=== PATIENT | male | born 1955 | race Hispanic/Latino ===

== ENCOUNTER 2016-11-26 17:15 | Inpatient (IN) | payer MEDICARE, SELFPAY ==
--- NOTE | 2016-11-26 17:57 | ED PDOC ---
Arrival/HPI - General Historian: Patient, Family (daughter) - General Chief Complaint: Seizure Time Seen by Provider: 11/26/16 17:40 - History of Present Illness Narrative History of Present Illness (Text): 11/26/16 18:03 61 yo M w h/o seizure disorder, Chronic EtOH abuse, active tobacco abuse, CAF not on AC due to risk of falls, HTN, TBI 7 years ago, medical noncompliance, presents to ER with his daughter, who states the patient has not been complaint with any of his medications x 5-6 years and has been having seizures daily x 4 days. Patient states he cannot tell when he is about to have a seizure. According to family friend, who is also at bedside, patient had a witnessed 3- minute myoclonic seizure with no head trauma. As per the patient and his daughter, patient did have multiple seizures in the past few days with an episode of head and back trauma 3 days ago. Patient admits to lower back pain worsened by movement and sitting since that seizure 3 days ago. Patient admits to 2 day h/o mildly productive white cough, denies fever, chills. Patient is a current smoker 1ppd x >45 years. Daily EtOH abuse, "three tall beers" today, according to the patient's daughter, he usually consumes 2-12 tall cans of beer per day. Patient denies CP, SOB, abd pain, n/v/d, fevers, chills, dysuria. ( Blanca Maldonado) Past Medical History - Provider Review Nursing Documentation Reviewed: Yes - Travel History Have you recently traveled outside [place] w/in the past 3 mons?: No - Infectious Disease Hx of Infectious Diseases: None - Tetanus Immunization Tetanus Immunization: Unknown - Cardiac Hx Cardiac Arrhythmia: Yes (a fib) Hx DE: Yes (x2) Hx Hypertension: Yes - Pulmonary Other/Comment: HX SMOKING - Neurological HX Cerebrovascular Accident: Yes (left sided weakness) Hx Dementia: Yes (ALCOHOL RELATED) Hx Seizures: Yes - Musculoskeletal/Rheumatological Hx Falls: Yes (Falls ETOH/Seizure Precaution) Hx Herniated Disk: Yes Hx Unsteady Gait: Yes (ETOH ABUSE) - Psychiatric Hx Depression: No Hx Emotional Abuse: No Hx Physical Abuse: No Hx Substance Use: No - Past Surgical History Past Surgical History: No Previous - Anesthesia Hx Anesthesia: No - Suicidal Assessment Feels Threatened In Home Enviroment: No Family/Social History - Physician Review Nursing Documentation Reviewed: Yes Family/Social History: Hypertension Smoking Status: Current Some Days Smoker Hx Alcohol Use: Yes (daily) Frequency of alcohol use: Daily Hx Substance Use: No Hx Substance Use Treatment: No Allergies/Home Meds Allergies/Adverse Reactions: Allergies No Known Allergies Allergy (Verified 11/26/16 17:40) Home Medications: Home Meds Medication Instructions Recorded Confirmed No Known Home Med 11/26/16 11/26/16 Review of Systems - Physician Review All systems were reviewed & negative as marked: Yes - Review of Systems Constitutional: Normal. absent: Fatigue Eyes: Normal. absent: Vision Changes ENT: Normal Respiratory: Cough, Sputum (white). absent: SOB Cardiovascular: absent: Chest Pain, Palpitations Gastrointestinal: absent: Abdominal Pain, Diarrhea, Nausea, Vomiting Genitourinary Male: absent: Dysuria Musculoskeletal: Back Pain. absent: Neck Pain Skin: absent: Rash, Skin Lesions Neurological: absent: Headache, Dizziness Endocrine: absent: Diaphoresis, Polyuria, Polydipsia Hemo/Lymphatic: absent: Easy Bleeding, Easy Bruising Psychiatric: absent: Anxiety, Depression Physical Exam Vital Signs Reviewed: Yes Temperature: Afebrile Blood Pressure: Normal Pulse: Tachycardic Respiratory Rate: Normal Appearance: Positive for: Well-Appearing, Non-Toxic Pain Distress: None Mental Status: Positive for: Alert and Oriented X 3 - Systems Exam Head: Present: Atraumatic, Normocephalic Pupils: Present: PERRL Extroacular Muscles: Present: EOMI Conjunctiva: Present: Normal. No: Icteric Mouth: Present: Dry (slightly) Neck: Present: Normal Range of Motion. No: Meningeal Signs, JVD Respiratory/Chest: Present: Wheezes (diffuse end-exp), Decreased Breath Sounds ( RLL). No: Clear to Auscultation, Respiratory Distress, Accessory Muscle Use Cardiovascular: Present: Normal S1, S2, Tachycardic Abdomen: Present: Distention, Normal Bowel Sounds. No: Tenderness, Peritoneal Signs, Rebound, Guarding Upper Extremity: Present: Normal Inspection, Neurovascularly Intact. No: Cyanosis, Edema Lower Extremity: Present: Normal Inspection. No: CALF TENDERNESS Neurological: Present: GCS=15, CN II-XII Intact, Speech Normal Skin: Present: Warm, Dry, Normal Color, Laceration (top of head) Psychiatric: Present: Alert, Oriented x 3, Normal Insight, Normal Concentration Vital Signs Temp Pulse Resp BP Pulse Ox 11/26/16 19:31 137/81 11/26/16 17:44 98.1 F 101 H 21 122/93 H 96 11/26/16 17:26 98.1 F 111 H 18 122/93 H 96 Medical Decision Making ED Course and Treatment: Patient Seen With Resident: In agreement with resident note. Patient was seen and evaluated with resident, came up with plan and treatment together. EXAM: CT Head Without Intravenous Contrast FINDINGS: LIMITATIONS: Exam is limited by moderate to marked streak/motion artifact. BRAIN: Stable appearance of multiple areas of encephalomalacia, located in the inferior frontal lobes bilaterally, the left frontal lobe laterally, and the left parietal lobe. Findings compatible with a chronic lacunar infarct in the right basal ganglia. Moderate to severe diffuse cortical atrophy and ventriculomegaly, which appear somewhat advanced for age. Recommend clinical correlation. No definite acute abnormality identified, allowing for motion artifact. No definite acute hemorrhage seen within the brain. No acute extra-axial fluid collections visualized. No evidence of significant mass effect within the brain. VENTRICLES: See above. BONES/JOINTS: No acute fractures are seen. SOFT TISSUES: No acute abnormality of the visualized soft tissues is seen. VASCULATURE: Atherosclerotic calcification. SINUSES: Mild sinus inflammatory disease. There is mild mucosal thickening in the left maxillary, right sphenoid, and bilateral ethmoid sinuses. Small osteoma also noted in a left ethmoid sinus. No evidence of sinus fluid levels. MASTOID AIR CELLS: Mastoid air cells appear clear. IMPRESSION: - No definite acute intracranial injury or fractures seen, allowing for motion artifact. - Multiple areas of encephalomalacia in the brain, stable in appearance compared to a prior study. Findings could be related to chronic infarcts and/or remote traumatic injury. Dictated and Authenticated by: Xi Ruvalcaba MD 11/26/2016 7:44 PM Eastern Time ([place] & [place]) (Twan Coleman) 11/26/16 18:33 61 yo M w h/o TBI, Seizure disorder, HTN, CAF not on AC, medical noncompliance presents with recurrent seizures. CT head, CXR, EKG, LS spine x-ray, labs, cultures. IVF, Duonebs. Re-assess and dispo. 11/26/16 20:34 Patient states he feels better after 10mg IV toradol for back pain. 11/26/16 20:53 Spoke with hospitalist, Dr woods, who accepts admission to hospitalist service. Resident notified, case discussed in depth with hospitalist and resident. (Blanca Maldonado) - Lab Interpretations Lab Results: 11/26/16 17:49 11/26/16 18:29 Lab Results 11/26/16 18:29: Alcohol, Quantitative 97 H 11/26/16 18:29: PT 12.8 H, INR 1.19 H, APTT 33.8 H 11/26/16 18:29: Sodium 125 L, Chloride 85 L, Potassium 3.4 L, Carbon Dioxide 24 , Anion Gap 19, BUN 22 H, Creatinine 1.3, Est GFR ( Amer) > 60, Est GFR ( Non-Af Amer) 57, Random Glucose 74, Calcium 9.0, Phosphorus 4.2, Magnesium 1.9, Total Bilirubin 3.0 H, AST 174 H, ALT 85 H, Alkaline Phosphatase 74, Total Protein 7.1, Albumin 4.0, Globulin 3.1, Albumin/Globulin Ratio 1.3 11/26/16 18:29: pO2 77 H, VBG pH 7.43, VBG pCO2 35.0 L, VBG HCO3 23.2, VBG Total CO2 24.3, VBG O2 Sat (Calc) 97.6 H, VBG Base Excess -0.6 L, VBG Potassium 3.2 L, Sodium 123.0 L, Chloride 86.0 L, Glucose 75, Lactate 3.6 H, FiO2 21.0, Venous Blood Potassium 3.2 L 11/26/16 17:49: WBC 15.4 H, RBC 5.66, Hgb 18.8 H*, Hct 52.1 H, MCV 92.0, MCH 33.2, MCHC 36.1, RDW 13.9, Plt Count 74 L, MPV 10.7, Neutrophils % (Manual) 85 H , Band Neutrophils % 6 H, Lymphocytes % (Manual) 8 L, Monocytes % (Manual) 1, Platelet Evaluation Low - RAD Interpretation Radiology Orders: 11/26/16 17:57 HEAD W/O CONTRAST [CT] Stat 11/26/16 17:59 CHEST ONE VIEW [RAD] Stat 11/26/16 18:20 LS SPINE WITH OBL > 18 YRS OLD [RAD] Stat - Medication Orders Current Medication Orders: Discontinued Medications Albuterol/Ipratropium (Duoneb 3 Mg/0.5 Mg (3 Ml) Ud) 3 ml IH STAT STA Stop: 11/26/16 18:22 Last Admin: 11/26/16 18:34 Dose: 3 ml Cyanocobalamin (Vitamin B12 1000 Mcg/Ml Inj) 1,000 mcg IM ONCE ONE Stop: 11/26/16 19:40 Sodium Chloride (Sodium Chloride 0.9%) 1,000 mls @ 999 mls/hr IV .Q1H1M STA Stop: 11/26/16 19:23 Last Admin: 11/26/16 18:34 Dose: 999 mls/hr Magnesium Sulfate/Dextrose (Magnesium Sulfate 1 Gm/100 Ml D5w) 1 gm in 100 mls @ 100 mls/hr IVPB ONCE ONE Stop: 11/26/16 20:27 Last Admin: 11/26/16 19:42 Dose: 100 mls/hr Sodium Chloride (Sodium Chloride 0.9%) 1,000 mls @ 999 mls/hr IV .Q1H1M STA Stop: 11/26/16 20:28 Last Admin: 11/26/16 20:24 Dose: 999 mls/hr Ketorolac Tromethamine (Toradol) 10 mg IVP STAT STA Stop: 11/26/16 19:39 Last Admin: 11/26/16 19:42 Dose: 10 mg Potassium Chloride (K-Dur 20 Meq Er Tab) 40 meq PO STAT STA Stop: 11/26/16 19:29 Last Admin: 11/26/16 19:42 Dose: 40 meq Thiamine HCl (Vitamin B1 Inj) 100 mg IM STAT STA Stop: 11/26/16 19:40 Last Admin: 11/26/16 20:23 Dose: 100 mg Disposition/Present on Arrival - Present on Arrival Any Indicators Present on Arrival: No History of DVT/PE: No History of Uncontrolled Diabetes: No Urinary Catheter: No History of Decub. Ulcer: No History Surgical Site Infection Following: None - Disposition Have Diagnosis and Disposition been Completed?: Yes Disposition Time: 20:33 Patient Plan: Admission - Disposition Diagnosis: Seizure, Alcohol abuse, Tobacco user Disposition: HOSPITALIZED Patient Problems: Current Active Problems Problem Status Onset Alcohol abuse Acute Tobacco user Acute Seizure disorder Acute Seizure Acute Condition: FAIR Referrals: [facility] Profile Req, [Primary Care Provider] - Follow up with primary
[2016-11-26] MEDS ORDERED: Albuterol-Ipratrop 3 mg / 0.5 (3 ml) UD IH STA (18:21)
[2016-11-26] MEDS ORDERED: Sodium Chloride 0.9% 1,000 ML IV STA ×2 (18:23→19:28)
[2016-11-26 18:42] LABS: VENOUS BLOOD GAS BASE EXCESS -0.6 mmol/L (0.0-2.0); VENOUS BLOOD PH 7.43 (7.32-7.43)
[2016-11-26 18:53] LABS: ALB/GLOB RATIO 1.3 (1.1-1.8); ALKALINE PHOSPHATASE 74 U/L (38-133); ALT/SGPT 85 U/L (7-56); AST/SGOT 174 U/L (15-59); BLOOD UREA NITROGEN 22 mg/dL (7-21); CARBON DIOXIDE 24 mmol/L (21-33); CHLORIDE 85 mmol/L (98-107); GFR AFRICAN-AMERICAN > 60; GLUCOSE,RANDOM 74 mg/dL (70-110); MAGNESIUM 1.9 mg/dL (1.7-2.2); PHOSPHOROUS 4.2 mg/dL (2.5-4.5); POTASSIUM 3.4 mmol/L (3.6-5.0); SODIUM 125 mmol/L (132-148); TOTAL PROTEIN 7.1 g/dL (5.8-8.3)
--- NOTE | 2016-11-26 18:55 | CARD ---
APPROVED REPORT EKG Measurement Heart [id number] <Conclusion> Atrial fibrillation with rapid ventricular response Anteroseptal infarct, age undetermined Abnormal ECG
[2016-11-26 18:57] LABS: HEMATOCRIT 52.1 % (42.0-52.0); MEAN CORPUSCULAR HEMOGLOBIN 33.2 pg (25.0-35.0); MEAN CORPUSCULAR HGB CONC 36.1 g/dl (31.0-37.0); MEAN PLATELET VOLUME 10.7 fl (7.0-11.0); PLATELET COUNT 74 10^3/uL (120.0-450.0); RED CELL DISTRIBUTION WIDTH 13.9 % (11.5-14.5); WHITE BLOOD COUNT 15.4 10^3/ul (4.5-11.0)
[2016-11-26 19:02] LABS: INR 1.19 (0.93-1.08); PARTIAL THROMBOPLASTIN TIME 33.8 Seconds (23.7-30.8)
[2016-11-26 19:09] LABS: ADD MANUAL DIFF? YES
[2016-11-26] MEDS ORDERED: Magnesium Sulfate 1 gm in D5W 1 GM/100 ML BAG IVPB ONE (19:28)
[2016-11-26] MEDS ORDERED: Potassium Chloride 20 mEq ER Tab PO STA ×2 (19:28→22:51)
[2016-11-26] MEDS ORDERED: Thiamine 100 mg/ml Inj IM STA (19:39)
--- NOTE | 2016-11-26 19:45 | CT ---
EXAM: CT Head Without Intravenous Contrast CLINICAL HISTORY: 61 years old, male; Injury or trauma; Injury Siazure, head trauma; Initial encounter; Blunt trauma (contusions or hematomas); Consciousness not specified; Additional info: Seizure, head trauma TECHNIQUE: Axial computed tomography images of the head/brain without intravenous contrast. This CT exam was performed using one or more of the following dose reduction techniques: automated exposure control, adjustment of the mA and/or kV according to patient size, and/or use of iterative reconstruction technique. EXAM DATE/TIME: 11/26/2016 5:57 PM COMPARISON: Prior head CT of 10/11/2015 FINDINGS: LIMITATIONS: Exam is limited by moderate to marked streak/motion artifact. BRAIN: Stable appearance of multiple areas of encephalomalacia, located in the inferior frontal lobes bilaterally, the left frontal lobe laterally, and the left parietal lobe. Findings compatible with a chronic lacunar infarct in the right basal ganglia. Moderate to severe diffuse cortical atrophy and ventriculomegaly, which appear somewhat advanced for age. Recommend clinical correlation. No definite acute abnormality identified, allowing for motion artifact. No definite acute hemorrhage seen within the brain. No acute extra-axial fluid collections visualized. No evidence of significant mass effect within the brain. VENTRICLES: See above. BONES/JOINTS: No acute fractures are seen. SOFT TISSUES: No acute abnormality of the visualized soft tissues is seen. VASCULATURE: Atherosclerotic calcification. SINUSES: Mild sinus inflammatory disease. There is mild mucosal thickening in the left maxillary, right sphenoid, and bilateral ethmoid sinuses. Small osteoma also noted in a left ethmoid sinus. No evidence of sinus fluid levels. MASTOID AIR CELLS: Mastoid air cells appear clear. IMPRESSION: - No definite acute intracranial injury or fractures seen, allowing for motion artifact. - Multiple areas of encephalomalacia in the brain, stable in appearance compared to a prior study. Findings could be related to chronic infarcts and/or remote traumatic injury. - See above for remaining findings.
[2016-11-26 19:50] LABS: BAND 6 % (0-2); NEUTROPHIL 85 % (50.0-70.0)
[2016-11-26 19:51] LABS: PLATELET ESTIMATE LOW (NORMAL)
[2016-11-26] MEDS ORDERED: Azithromycin 500MG/NS 250ml 500 MG/250 ML BAG IVPB STA (21:44)
--- NOTE | 2016-11-26 22:03 | CP.PCM.HP ---
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 Pt reports that he does not recall the seizure. According to the friend at bedside, the pt fell on his back and hit the top of his head. The pt reports that he does feel pain on the top of his head and in his lower back. According to the daughter, the pt has a history of seizures and is noncompliant with his medications. She reports that he does not follow up a primary care physician. The pt reports that he falls often but does not recall if he has seizures. The pt's friend who is staying with him reports that he saw him have a seizure yesterday during which he fell and hit his head. Pt also reports that he drinks 3-4 large cans of beer per day and he experiences shakes when he does not drink. Pt rpeorts that he has a cough. Pt denies fever, chills, chest pain, shortness of breath, nausea, and vomiting. 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 (7 years ago), seizures, alcohol dependence and withdrawal, and alcoholic dementia Home medications: denies Allergies: NKDA Past surgical hx: tracheostomy, b/l inguinal hernia repair Social Hx: reports that he smokes half a pack of cigarettes/day, drinks 3-4 large cans of beer/day, occasionally uses cocaine and marijuana Family Hx: Heart Disease and Diabetes Mellitus (both maternal and paternal sides ) Present on Admission - Present on Admission Any Indicators Present on Admission: No Review of Systems - Constitutional Constitutional: absent: Chills, Fever - EENT Eyes: absent: Blurred Vision, Change in Vision Ears: absent: Disequilibrium, Dizziness Nose/Mouth/Throat: absent: Epistaxis, Nasal Congestion - Cardiovascular Cardiovascular: Palpitations. absent: Chest Pain, Dyspnea, Leg Edema - Respiratory Respiratory: Cough. absent: Dyspnea - Gastrointestinal Gastrointestinal: absent: Abdominal Pain, Nausea, Vomiting - Musculoskeletal Musculoskeletal: Back Pain. absent: Abnormal Gait, Arthralgias - Neurological Neurological: absent: Disequilibrium, Dizziness - Psychiatric Psychiatric: Change in Appetite, Confusion Past Patient History - Infectious Disease Hx of Infectious Diseases: None - Tetanus Immunizations Tetanus Immunization: Unknown - Past Social History Smoking Status: Current Some Days Smoker - CARDIAC Hx Cardia Arrhythmia: Yes (a fib) Hx Heart Attack: Yes (x2) Hx Hypertension: Yes - PULMONARY Other/Comment: HX SMOKING - NEUROLOGICAL HX Cerebrovascular Accident: Yes (left sided weakness) Hx Dementia: Yes (ALCOHOL RELATED) Hx Seizures: Yes - MUSCULOSKELETAL/RHEUMATOLOGICAL Hx Falls: Yes (Falls ETOH/Seizure Precaution) Hx Herniated Disk: Yes Hx Unsteady Gait: Yes (ETOH ABUSE) - PSYCHIATRIC Hx Depression: No Hx Emotional Abuse: No Hx Physical Abuse: No Hx Substance Use: No - SURGICAL HISTORY Hx Surgeries: No - ANESTHESIA Hx Anesthesia: No Meds Allergies/Adverse Reactions: Allergies Allergy/AdvReac Type Severity Reaction Status Date / Time No Known Allergies Allergy Verified 11/26/16 17:40 Physical Exam - Constitutional Appears: No Acute Distress, Unkempt - Head Exam Head Exam: ATRAUMATIC, NORMOCEPHALIC - Eye Exam Eye Exam: EOMI, PERRL - ENT Exam ENT Exam: Mucous Membranes Moist. absent: Mucous Membranes Dry - Respiratory Exam Respiratory Exam: Clear to Auscultation Bilateral. absent: Decreased Breath Sounds, Rhonchi, Wheezes - Cardiovascular Exam Cardiovascular Exam: Irregular Rhythm - GI/Abdominal Exam GI & Abdominal Exam: Distended, Rigid. absent: Guarding - Extremities Exam Extremities exam: Positive for: full ROM. Negative for: pedal edema - Neurological Exam Neurological exam: Alert, Oriented x3 - Psychiatric Exam Psychiatric exam: Normal Affect, Normal Mood - Skin Skin Exam: Normal Color, Warm Results - Vital Signs Recent Vital Signs: Last Vital Signs Temp 98.1 F 11/26/16 17:44 Pulse 101 H 11/26/16 17:44 Resp 21 11/26/16 17:44 BP 137/81 11/26/16 19:31 Pulse Ox 96 11/26/16 17:44 - Labs Result Diagrams: 11/26/16 17:49 11/26/16 18:29 Assessment & Plan - Assessment and Plan (Free Text) Assessment: Fall: Head CT - multiple areas of encephalomalacia - stable compared to previous study (please see full report) Lumbar spine x-ray- pending official read Seizure: Head CT - multiple areas of encephalomalacia - stable compared to previous study (please see full report) Neurologist, Dr. Angelia Montes, consulted. Help appreciated. EEG pending Electrolyte Abnormalities: Na+ 125 K+ 3.4 K-dur 40 meq po once NS IVF 125 cc/hr Alcohol Withdrawal: Serum alcohol-97 Ativan 2 mg po q6h Ativan 1 mg IV q2h prn Folic acid 1 mg po qd Thiamine 100 mg po qd Multivitamins SIRS: HR: 101 WBC - 15.4 Band neutrophils 6 CXR -pending official read Lactate 3.6 Procalcitonin pending Coagulopathy: INR - 1.19 Platelets - 74,000 H/H: 18.8/52.1 Iron studies pending Elevated Liver Function tests/transaminitis: T-bili 3.0 AST/ALT: 174/85 Abdominal u/s pending Prophylactic Measures: GI: Protonix 40 mg po qd DVT: SCDs <Arvind Fatima P - Last Filed: 12/08/16 19:34> Results - Vital Signs Recent Vital Signs: Last Vital Signs Temp 97.8 F 12/02/16 16:00 Pulse 76 12/02/16 18:00 Resp 18 12/02/16 18:00 BP 99/70 L 12/02/16 18:00 Pulse Ox 95 12/02/16 16:00 - Labs Result Diagrams: 12/02/16 06:15 12/02/16 06:15 Attending/Attestation - Attestation I have personally seen and examined this patient.: Yes I have fully participated in the care of the patient.: Yes I have reviewed all pertinent clinical information: Yes
[2016-11-26] MEDS: Sodium Chloride 0.9% 1,000 ML IV SCH (23:41)
[2016-11-27 00:40] LABS: VENOUS BLOOD GAS BASE EXCESS -2.3 mmol/L (0.0-2.0); VENOUS BLOOD PH 7.43 (7.32-7.43)
[2016-11-27] MEDS: Morphine 2 mg/ml ISec IVP PRN ×2 (00:50→18:54)
[2016-11-27 01:10] VITALS: BMI 24.7
[2016-11-27] MEDS: Pantoprazole 40 mg EC Tab PO SCH (05:32)
[2016-11-27 06:57] LABS: ADD MANUAL DIFF? NO
[2016-11-27 07:07] LABS: BASO # 0.01 K/mm3 (0.0-2.0); BASO % 0.1 % (0.0-3.0); EOS % 0.1 % (1.5-5.0); GRAN # 8.58 (1.4-6.5); GRAN % 83.1 % (50.0-68.0); HEMATOCRIT 49.8 % (42.0-52.0); LYMPH # 0.8 (1.2-3.4); LYMPH % 7.7 % (22.0-35.0); MEAN CELL VOLUME 93.1 fL (80.0-105.0); MEAN CORPUSCULAR HEMOGLOBIN 32.5 pg (25.0-35.0); MEAN CORPUSCULAR HGB CONC 34.9 g/dl (31.0-37.0); MONO # 0.9 (0.1-0.6); PLATELET COUNT 72 10^3/uL (120.0-450.0); RED CELL DISTRIBUTION WIDTH 14.1 % (11.5-14.5); WHITE BLOOD COUNT 10.3 10^3/ul (4.5-11.0)
[2016-11-27 07:19] LABS: IRON 125 ug/dL (45-180)
[2016-11-27 07:23] LABS: ALB/GLOB RATIO 1.2 (1.1-1.8); ALKALINE PHOSPHATASE 84 U/L (38-133); ALT/SGPT 77 U/L (7-56); AST/SGOT 159 U/L (15-59); BILIRUBIN,TOTAL 2.8 mg/dL (0.2-1.3); BLOOD UREA NITROGEN 18 mg/dL (7-21); CALCIUM 8.5 mg/dL (8.4-10.5); CARBON DIOXIDE 27 mmol/L (21-33); CHLORIDE 100 mmol/L (98-107); GFR AFRICAN-AMERICAN > 60; GLUCOSE,RANDOM 63 mg/dL (70-110); MAGNESIUM 2.3 mg/dL (1.7-2.2); SODIUM 134 mmol/L (132-148); TOTAL PROTEIN 6.9 g/dL (5.8-8.3)
--- NOTE | 2016-11-27 08:42 | US ---
HISTORY: Elevated LFTs COMPARISON: Abdominal ultrasound performed 02/20/13 TECHNIQUE: Sonographic evaluation of the abdomen. FINDINGS: Examination limited by habitus and patient inability to breath hold. LIVER: Measures 16.9 cm in sagittal dimension. Echogenic liver may be seen in setting of hepatic parenchymal disease or fatty infiltration. No focal hepatic mass identified. The main portal vein appears patent with normal directional flow. No intrahepatic bile duct dilatation. GALLBLADDER: No gallstones. No gallbladder wall thickening. Negative sonographic Chance's sign as assessed by the mixing machine attendant. COMMON BILE DUCT: Measures 3 mm. PANCREAS: Not well visualized. RIGHT KIDNEY: Measures 11.0 x 6.4 x 7.4 cm. No obstructing calculus or hydronephrosis identified. LEFT KIDNEY: Measures 12.1 x 6.1 x 6.1 cm. No obstructing calculus or hydronephrosis identified. SPLEEN: Measures approximately 8.4 cm. AORTA: Limited views appear unremarkable. IVC: Limited views appear unremarkable. OTHER FINDINGS: None. IMPRESSION: Limited study. Echogenic liver may be seen in setting of hepatic parenchymal disease or fatty infiltration.
--- NOTE | 2016-11-27 08:44 | RAD ---
PROCEDURE: Radiographs of the Lumbar Spine. HISTORY: trauma r/o fx COMPARISON: No prior. FINDINGS: BONES: No fracture. No spondylolysis. DISC SPACES: Narrowing of L3-4 intervertebral disc space consistent with degenerative disc disease. Minimal left lateral listhesis of L3 on L4, likely degenerative. Remaining intervertebral disc spaces maintained height. OTHER FINDINGS: None. IMPRESSION: No evidence of fracture or dislocation. Degenerative disc disease at L3-4. Minimal left lateral listhesis at L3-4, likely degenerative.
--- NOTE | 2016-11-27 08:45 | RAD ---
PROCEDURE: CHEST RADIOGRAPH, 1 VIEW HISTORY: productive cough COMPARISON: 12/30/2012 FINDINGS: LUNGS: Clear. PLEURA: No pneumothorax or pleural fluid seen. CARDIOVASCULAR: Normal. OSSEOUS STRUCTURES: No significant abnormalities. VISUALIZED UPPER ABDOMEN: Normal. OTHER FINDINGS: None. IMPRESSION: No active disease.
[2016-11-27] MEDS: Sodium Chloride 0.9% 1,000 ML IV SCH (08:52)
--- NOTE | 2016-11-27 09:38 | CP.PCM.PN ---
<Cait Daniels - Last Filed: 11/27/16 13:16> Subjective - Date & Time of Evaluation Date of Evaluation: 11/27/16 Time of Evaluation: 09:35 - Subjective Subjective: HOSPITALIST PROGRESS NOTE Pt seen and examined at bedside. Patient is sleeping but easily arousable. C/ O low back pain. Denies having any CP, SOB, abd pain, N/V/D/C. Patient is A& Ox 3. Patient c/o of left foot pain on going for 1 week. Denies having any trauma to the foot but states it is painful to walk on foot. Objective - Vital Signs/Intake and Output Vital Signs (last 24 hours): Temp Pulse Resp BP Pulse Ox 98.4 F 112 H 20 121/83 92 L 11/27/16 05:26 11/27/16 05:26 11/27/16 05:26 11/27/16 05:26 11/27/16 05:26 Intake and Output: 11/27/16 11/27/16 06:59 18:59 Intake Total 970 1000 Balance 970 1000 - Medications Medications: Current Medications Folic Acid (Folic Acid) 1 mg PO DAILY [facility] Sodium Chloride (Sodium Chloride 0.9%) 1,000 mls @ 125 mls/hr IV .Q8H PENDING SALE TO [facility] Last Admin: 11/27/16 08:52 Dose: 125 mls/hr Piperacillin Sod/Tazobactam Sod (Zosyn 4.5 Gm In Ns 100ml) 4.5 gm in 100 mls @ 200 mls/hr IVPB Q6 [facility] Stop: 11/27/16 18:29 Levetiracetam (Keppra) 500 mg PO BID [facility] Lorazepam (Ativan) 2 mg PO Q6H [facility] PRN Reason: Protocol Last Admin: 11/27/16 05:32 Dose: 2 mg Lorazepam (Ativan) 1 mg IVP Q2H PRN; Protocol PRN Reason: Agitation Morphine Sulfate (Morphine) 1 mg IVP Q4H PRN PRN Reason: Pain, moderate (4-7) Last Admin: 11/27/16 00:50 Dose: 1 mg Multivitamins (Thera Tab) 1 tab PO DAILY [facility] Nicotine (Nicoderm Cq) 1 patch TD DAILY PRN PRN Reason: withdrawal sxs Pantoprazole Sodium (Protonix Ec Tab) 40 mg PO 0630 [facility] Last Admin: 11/27/16 05:32 Dose: 40 mg Piperacillin Sod/Tazobactam Sod (Zosyn) 4.5 gm IVPB Q6 [facility] PRN Reason: Protocol Thiamine HCl (Vitamin B1 Tab) 100 mg PO DAILY [facility] - Labs Labs: 11/27/16 05:00 11/27/16 05:00 PT 12.8 Seconds (9.9-11.8) H 11/26/16 18:29 INR 1.19 (0.93-1.08) H 11/26/16 18:29 APTT 33.8 Seconds (23.7-30.8) H 11/26/16 18:29 - Constitutional Appears: Non-toxic, No Acute Distress - Head Exam Head Exam: ATRAUMATIC - Eye Exam Eye Exam: EOMI - ENT Exam ENT Exam: Mucous Membranes Moist - Respiratory Exam Respiratory Exam: Clear to Ausculation Bilateral, NORMAL BREATHING PATTERN. absent: Rales, Rhonchi, Wheezes - Cardiovascular Exam Cardiovascular Exam: REGULAR RHYTHM, +S1, +S2. absent: Gallop, Rubs, Murmur - GI/Abdominal Exam GI & Abdominal Exam: Soft, Normal Bowel Sounds. absent: Distended, Firm, Guarding, Rigid, Tenderness - Extremities Exam Extremities Exam: absent: Pedal Edema, Tenderness - Back Exam Back Exam: absent: paraspinal tenderness, vertebral tenderness Additional comments: no lacerations or bruising noted on back. Spine nontender - Neurological Exam Neurological Exam: Alert, Awake, Oriented x3 - Psychiatric Exam Psychiatric exam: Normal Affect, Normal Mood - Skin Skin Exam: Dry, Intact, Normal Color, Warm Additional comments: dry blood noted on scalp with no obvious open lac Assessment and Plan - Assessment and Plan (Free Text) Assessment: 61 year old male with past medical history of seizure disorder noncompliant with medications, ETOH abuse, chornic a fib, history of subdural hematoma, HTN, CVA, CAD with 2 MIs is admitted after experiencing a witnessed seizure. CT of head is negative for acute changes but shows multiple areas of encephalomalacia. Lumbar spine shows no fracture but degenerative disc disease at L3-L4. Fall: Head CT - multiple areas of encephalomalacia - stable compared to previous study (please see full report) Lumbar spine x-ray- negative for fractures betadine applied to head Seizure: Keppra [address] - multiple areas of encephalomalacia - stable compared to previous study (please see full report) Neurologist, Dr. Angelia Montes, consulted. Help appreciated. EEG pending Electrolyte Abnormalities: Improving Hyponatremia is corrected. hypokalemia is corrected. NS IVF 75 cc/hr Alcohol Withdrawal: Serum alcohol-97 Ativan 2 mg IV q6h Ativan 2 mg IV q2h prn Folic acid 1 mg po qd Thiamine 100 mg po qd Multivitamins po UDA is pending SIRS: HR: 106 Improved WBC count CXR -negative Lactate normal Procalcitonin pending UA is pending Coagulopathy: INR - 1.19 Platelets - 74,000. will avoid heparin H/H: 17.4/49.8 Iron studies pending Elevated Liver Function tests/transaminitis: T-bili 3.0 AST/ALT: 159/77 Abdominal u/s shows echogenic liver parenchymal disease vs. fatty liver disease Chronic A fib. CHADs2 score of 3. HAS-BLED score of 4 so 8.9% risk of bleeding in this patient. Will consult cardiology for further recs Prophylactic Measures: GI: Protonix 40 mg po qd DVT: SCDs Case discussed with attending Dr. Shelton <Falguni Shelton B - Last Filed: 11/29/16 11:43> Objective - Vital Signs/Intake and Output Vital Signs (last 24 hours): Temp Pulse Resp BP Pulse Ox 97.8 F 91 H 20 144/101 H 96 11/29/16 05:56 11/29/16 10:45 11/29/16 05:56 11/29/16 10:45 11/29/16 05:56 Intake and Output: 11/29/16 11/29/16 06:59 18:59 Intake Total 1560 Balance 1560 - Medications Medications: Current Medications Clonidine HCl (Catapres) 0.2 mg PO TID PRN PRN Reason: Systolic Blood Pressure Last Admin: 11/28/16 21:55 Dose: 0.2 mg Folic Acid 1 mg/ Thiamine HCl 100 mg/ Multivitamins/Vitamin C 10 ml/ Dextrose 1 ,011.2 mls @ 100 mls/hr IV .Q10H7M [facility] Last Admin: 11/29/16 08:14 Dose: Not Given Ceftriaxone Sodium (Rocephin 1 Gram Ivpb) 1 gm in 100 mls @ 100 mls/hr IVPB DAILY [facility] PRN Reason: Protocol Last Admin: 11/29/16 09:05 Dose: 100 mls/hr Azithromycin (Zithromax 500mg In Ns) 500 mg in 250 mls @ 167 mls/hr IVPB DAILY [facility] PRN Reason: Protocol Last Admin: 11/29/16 10:46 Dose: 167 mls/hr Levalbuterol HCl (Xopenex) 1.25 mg IH TIDRESP [facility]END[facility] TO [facility] Last Admin: 11/29/16 07:40 Dose: 1.25 mg Levetiracetam (Keppra) 500 mg PO BID [facility] Last Admin: 11/29/16 10:45 Dose: 500 mg Lorazepam (Ativan) 2 mg IV Q2H PRN PRN Reason: Symptoms of alcohol withdrawl Last Admin: 11/28/16 06:39 Dose: 2 mg Lorazepam (Ativan) 1 mg PO QID [facility] Last Admin: 11/29/16 10:45 Dose: 1 mg Methylprednisolone (Solu-Medrol) 40 mg IVP Q12H [facility] Last Admin: 11/29/16 10:53 Dose: 40 mg Metoprolol Tartrate (Lopressor) 25 mg PO BID [facility] Last Admin: 11/29/16 10:45 Dose: 25 mg Morphine Sulfate (Morphine) 1 mg IVP Q4H PRN PRN Reason: Pain, moderate (4-7) Last Admin: 11/27/16 18:54 Dose: 1 mg Nicotine (Nicoderm Cq) 1 patch TD DAILY PRN PRN Reason: withdrawal sxs Last Admin: 11/28/16 09:55 Dose: 1 patch Pantoprazole Sodium (Protonix Ec Tab) 40 mg PO 0630 [facility] Last Admin: 11/29/16 05:39 Dose: 40 mg - Labs Labs: 11/29/16 07:10 11/29/16 07:10 PT 12.8 Seconds (9.9-11.8) H 11/26/16 18:29 INR 1.19 (0.93-1.08) H 11/26/16 18:29 APTT 33.8 Seconds (23.7-30.8) H 11/26/16 18:29 Attending/Attestation - Attestation I have personally seen and examined this patient.: Yes I have fully participated in the care of the patient.: Yes I have reviewed all pertinent clinical information, including history, physical exam and plan: Yes Notes (Text): I have seen and examined patient at bedside. Agree with the above note with the following additions/ exceptions: This is 61 year old male with history of seizure disorder, alcohol abuse, chronic atrial fibrillation, history of SDH, HTN, CVA, CAD who got admitted for evaluation of witnessed seizure and fall. He had head trauma and low back pain. CT head revealed encephalomalacia. L/S spine xray showed DJD of L3-L4. EEG was ordered. Will start keppra. Neuro and psych consult pending. Hyponatremia resolved. BAL was 97 and is currently on ativan. He has transaminitis. Hep panel and liver ultrasound ordered. He has CHADS2 score of 3. HAS-BLED score of 4 therefore high risk of bleeding. HR is 107 which is acceptable with no hemodynamic instability. Awaiting train director recommendations. Will obtain echo. Dr Falguni Shelton
[2016-11-27] MEDS: Multivitamin Therapeutic Tab PO SCH (10:24)
--- NOTE | 2016-11-27 11:34 | RAD ---
PROCEDURE: Left Foot Radiographs. HISTORY: pain, tenderness, erythema COMPARISON: None. FINDINGS: BONES: Normal. No fracture. JOINTS: Normal. SOFT TISSUES: Normal. OTHER FINDINGS: None. IMPRESSION: Normal left foot radiographs.
[2016-11-27] MEDS ORDERED: Piperacillin/Tazobact 3.375 gm Inj IVPB SCH (12:00)
[2016-11-27] MEDS ORDERED: Piperacill/Tazo 4.5gm in NS 100 ML IVPB SCH (12:00)
[2016-11-27] MEDS ORDERED: Sodium Chloride 0.9% 1,000 ML IV SCH (13:26)
[2016-11-27] MEDS ORDERED: Povidone Iodine Topical 10% Sol TOP ONE (13:44)
--- NOTE | 2016-11-27 19:17 | CON ---
DATE: 11/27/2016 HISTORY OF PRESENT ILLNESS: This is a 61-year-old white male with a past medical history of CVA 2 ye ars ago, traumatic brain injury 7 years ago, a history of seizure, alcohol dependence and withdrawal, and alcoholic dementia. Came to see the patient. Daughter at bedside. The patient less agitated. Follows simple commands. The patient had a seizure at home. Brought him here. CAT scan of the hea d was done, which was reported negative. Only encephalomalacia. The patient drinks 3-4 large cans of beer per day. Has also cough. PAST MEDICAL HISTORY: CVA, traumatic brain injury, multiple subdural hematomas, seizure, alcohol dep endence, alcoholic dementia. ALLERGIES: No known drug allergy was noted. SOCIAL HISTORY: Smokes and drinks. PHYSICAL EXAMINATION: VITAL SIGNS: Blood pressure 137/81. HEENT: Normocephalic, atraumatic. NECK: Supple. NEUROLOGIC: Awake, oriented to self and place. Cranial nerves II-XII were tested. Pupils reactive. EOM intact. Moves all the extremities spontaneously. Deep tendon reflexes 1+. Both plantars are downgoing. Sensory appears intact. Cerebellar: Gait deferred. IMPRESSION: Seizure. The patient is not taking any medication at home. Also, alcohol withdrawal. The patient was given Ativan regimen, thiamine, and multivitamins, and also started on Keppra. Will do EEG. Further management after the results of above tests. Wong Montes MD cc: [id number] TT: 11/27/2016 19:17:01 Confirmation # [id number] Dictation # [id number] fidel
--- NOTE | 2016-11-27 20:32 | CON ---
DATE: 11/27/2016 HISTORY OF PRESENT ILLNESS: The patient is a 61-year-old male. I reviewed the chart. I s poke at length with referring physician/neurologist, Dr. Montes, and I also spoke at length with 1 of the patient's 2 daughters. The patient was brought to the Emergency Room after having several seizu res in recent days. The patient has a long history of 7 years of traumatic brain disease, seizure di sorder, and has a long-term history of chronic alcohol and tobacco abuse. The patient lives alone, w as a poor historian, but apparently a family friend witnessed a 3 minute myoclonic seizure and patijosé miguel lebron has had multiple seizures in the past few days with an episode of head and back trauma 3 days ago. PAST MEDICAL HISTORY: He had a history of a fall 7 years ago on ice for which he had a brain injury and has had a seizure disorder ever since with traumatic brain injury. Other significant history is as follows: The patient has had a history of myocardial infarctions. He has had a CVA 2 years ago w here he has had a subdural hematoma after his fall and has had seizures both alcohol dependence and w ithdrawal. He also has a history of alcohol dementia. PAST SURGICAL HISTORY: Includes a tracheostomy, bilateral inguinal hernia repair. PERSONAL HISTORY: The patient apparently drinks at least 3-4 large cans of beer per day and smokes h eavily. Allegedly uses cocaine and marijuana. The patient has been drinking since he was a young ma n. The patient's approximately 3 years ago. He lives alone in an apartment. He smokes sesay lf a pack of cigarettes per day. FAMILY HISTORY: Both parents had heart disease and diabetes mellitus. LABORATORY DATA: On admission, his hemoglobin was 18.8, white count 15,400, platelet count 74,000. The patient's urine for toxicology and alcohol level of 97 mg/dL. CURRENT MEDICATIONS: Include IV Ativan q.2 or 6 hours and morphine 1 mg IVP q.4 hours p.r.n. He is on folic acid, Protonix, Keppra 500 mg twice a day, vitamin B1 at 100 mg daily. The patient is on IV fluids. He is also on azithromycin IV. REVIEW OF SYSTEMS: Complains of the back of his neck hurting, back pain, slight headache. The rest of the 12 point review noncontributory. VITAL SIGNS: Blood pressure most recently is 156/109, pulse 95, respirations 18 per minute. CURRENT LABORATORY DATA: The patient's electrocardiogram reveals atrial fibrillation with rapid vent ricular rate. The patient had an x-ray of the lumbar spine, which reveals no evidence of fracture or dislocation and degenerative disk disease of L3-L4, minimal left lateral listhesis of L3-L4, most li gwendolyn degenerative. The patient's head scan revealed multiple areas of encephalomalacia in the brain. Findings could be related to chronic infarcts and/or traumatic injury. The patient had areas of en cephalomalacia located in the inferior frontal lobes bilaterally, left frontal lobe laterally and the left parietal lobe. He has chronic lacunar infarcts in the right basal ganglia, [id number] di ffuse cortical atrophy and ventriculomegaly. PSYCHIATRIC: Mental status: He is a slightly tired, slightly drowsy, lying in bed. He is tod ay, month and place. He says the year is 1976. His recent memory is somewhat clouded. He is not a reliable historian. He seems under the influence of medication. Judgment and insight were all impai red. Of note, his daughters have power of automotive design layout drafter. IMPRESSION: The patient has chronic traumatic brain syndrome with multiple areas of encephalomalacia and infarct. The patient has chronic alcohol abuse disorder. He has been treated for alcohol with phill. He has a history of coronary artery disease, he has had prior myocardial infarctions, and cur rently has a atrial fibrillation with rapid rate. PLAN: Ativan 2 mg IV q.4 hours p.r.n. and Ativan 1 mg p.o. q.i.d. I discussed management with the [facility] [place] staff and will reevaluate the patient tomorrow. Aneesh Lees MD cc: [phone] TT: 11/27/2016 20:32:05 Confirmation # [id number] Dictation # [id number] fidel
[2016-11-28] MEDS: Pantoprazole 40 mg EC Tab PO SCH (05:33)
[2016-11-28 07:23] LABS: ADD MANUAL DIFF? NO
[2016-11-28 07:34] LABS: BASO # 0.01 K/mm3 (0.0-2.0); BASO % 0.1 % (0.0-3.0); EOS % 0.3 % (1.5-5.0); GRAN # 7.03 (1.4-6.5); GRAN % 74.3 % (50.0-68.0); LYMPH # 1.2 (1.2-3.4); LYMPH % 12.1 % (22.0-35.0); MEAN CORPUSCULAR HEMOGLOBIN 32.8 pg (25.0-35.0); MEAN CORPUSCULAR HGB CONC 34.1 g/dl (31.0-37.0); MEAN PLATELET VOLUME 11.1 fl (7.0-11.0); MONO # 1.3 (0.1-0.6); MONO % 13.2 % (1.0-6.0); PLATELET COUNT 72 10^3/uL (120.0-450.0); RED CELL DISTRIBUTION WIDTH 14.2 % (11.5-14.5); WHITE BLOOD COUNT 9.5 10^3/ul (4.5-11.0)
[2016-11-28] MEDS ORDERED: Albuterol-Ipratrop 3 mg / 0.5 (3 ml) UD IH PRN (07:48)
[2016-11-28 07:51] LABS: ALB/GLOB RATIO 1.2 (1.1-1.8); ALKALINE PHOSPHATASE 90 U/L (38-133); ALT/SGPT 66 U/L (7-56); AST/SGOT 112 U/L (15-59); BILIRUBIN,TOTAL 2.5 mg/dL (0.2-1.3); BLOOD UREA NITROGEN 14 mg/dL (7-21); CARBON DIOXIDE 29 mmol/L (21-33); CHLORIDE 102 mmol/L (95-110); GFR AFRICAN-AMERICAN > 60; POTASSIUM 3.7 mmol/L (3.6-5.0); SODIUM 140 mmol/L (132-148); TOTAL PROTEIN 7.2 g/dL (5.8-8.3)
[2016-11-28] MEDS ORDERED: Dextrose 50% SYRINGE Inj (50 ml) ONE (08:18)
[2016-11-28 08:19] LABS: GLUCOSE,RANDOM 47 mg/dL (70-110)
[2016-11-28] MEDS ORDERED: Dextrose 50% SYRINGE Inj (50 ml) IVP ONE (08:22)
[2016-11-28] MEDS: Multivitamin Therapeutic Tab PO SCH (09:56)
--- NOTE | 2016-11-28 10:09 | RAD ---
PROCEDURE: Radiographs of the pelvis and bilateral hips HISTORY: fall, B/L hip pain COMPARISON: None. FINDINGS: BONES: Pelvis: Unremarkable. Right hip:Unremarkable. Left hip:Unremarkable. JOINTS: Right hip: Unremarkable. Left hip: Unremarkable. Sacroiliac Joints: Unremarkable. Pubic symphysis: Unremarkable. SOFT TISSUES: Normal. OTHER FINDINGS: None. IMPRESSION: Unremarkable radiographs of the hips and pelvis.
[2016-11-28] MEDS ORDERED: MethylPREDNISolone 40 mg Vial IVP STA (11:02)
[2016-11-28] MEDS ORDERED: Dextrose 5%/0.45% NS 1,000 ML IV SCH (11:15)
[2016-11-28] MEDS: cefTRIAXone 1 gm 1 GM/100 ML BAG IVPB SCH (12:13)
[2016-11-28] MEDS: Azithromycin 500MG/NS 250ml 500 MG/250 ML BAG IVPB SCH (12:13)
--- NOTE | 2016-11-28 13:47 | CP.PCM.PN ---
<Cait Daniels - Last Filed: 11/28/16 13:44> Subjective - Date & Time of Evaluation Date of Evaluation: 11/28/16 Time of Evaluation: 13:44 - Subjective Subjective: HOSPITALIST PROGRESS NOTE Pt is seen and examined at bedside. Patient is A&Ox1. Patient was agitated overnight and placed on monty. Patient denies having any CP,SOB, Abd pain, N/V/ D/C. Objective - Vital Signs/Intake and Output Vital Signs (last 24 hours): Temp Pulse Resp BP Pulse Ox 97.1 F L 91 H 22 174/123 H 95 11/28/16 11:42 11/28/16 11:42 11/28/16 05:54 11/28/16 09:54 11/28/16 05:54 Intake and Output: 11/28/16 11/28/16 06:59 18:59 Intake Total 1800 Balance 1800 - Medications Medications: Current Medications Clonidine HCl (Catapres) 0.1 mg PO TID PRN PRN Reason: Systolic Blood Pressure Last Admin: 11/28/16 09:54 Dose: 0.1 mg Folic Acid 1 mg/ Thiamine HCl 100 mg/ Multivitamins/Vitamin C 10 ml/ Dextrose 1 ,011.2 mls @ 100 mls/hr IV .Q10H7M [facility] Ceftriaxone Sodium (Rocephin 1 Gram Ivpb) 1 gm in 100 mls @ 100 mls/hr IVPB DAILY [facility] PRN Reason: Protocol Last Admin: 11/28/16 12:13 Dose: 100 mls/hr Azithromycin (Zithromax 500mg In Ns) 500 mg in 250 mls @ 167 mls/hr IVPB DAILY [facility] PRN Reason: Protocol Last Admin: 11/28/16 12:13 Dose: 167 mls/hr Levalbuterol HCl (Xopenex) 1.25 mg IH TIDRESP [facility] Levetiracetam (Keppra) 500 mg PO BID [facility] Last Admin: 11/28/16 09:54 Dose: 500 mg Lorazepam (Ativan) 2 mg IV Q2H PRN PRN Reason: Symptoms of alcohol withdrawl Last Admin: 11/28/16 06:39 Dose: 2 mg Lorazepam (Ativan) 1 mg PO QID [facility] Methylprednisolone (Solu-Medrol) 40 mg IVP Q8 [facility] Morphine Sulfate (Morphine) 1 mg IVP Q4H PRN PRN Reason: Pain, moderate (4-7) Last Admin: 11/27/16 18:54 Dose: 1 mg Nicotine (Nicoderm Cq) 1 patch TD DAILY PRN PRN Reason: withdrawal sxs Last Admin: 11/28/16 09:55 Dose: 1 patch Pantoprazole Sodium (Protonix Ec Tab) 40 mg PO 0630 [facility] Last Admin: 11/28/16 05:33 Dose: Not Given - Labs Labs: 11/28/16 06:30 11/28/16 06:30 PT 12.8 Seconds (9.9-11.8) H 11/26/16 18:29 INR 1.19 (0.93-1.08) H 11/26/16 18:29 APTT 33.8 Seconds (23.7-30.8) H 11/26/16 18:29 - Constitutional Appears: Non-toxic, No Acute Distress - Head Exam Head Exam: ATRAUMATIC - ENT Exam ENT Exam: Mucous Membranes Moist - Respiratory Exam Respiratory Exam: Wheezes. absent: Accessory Muscle Use, Clear to Ausculation Bilateral, Rales, Rhonchi, Respiratory Distress - Cardiovascular Exam Cardiovascular Exam: Tachycardia, +S1, +S2. absent: Gallop, Rubs, Murmur - GI/Abdominal Exam GI & Abdominal Exam: Soft, Normal Bowel Sounds. absent: Distended, Firm, Guarding, Rigid, Tenderness - Extremities Exam Extremities Exam: absent: Pedal Edema, Tenderness - Neurological Exam Neurological Exam: Awake. absent: Oriented x3 (A&Ox1) Assessment and Plan - Assessment and Plan (Free Text) Assessment: 61 year old male with past medical history of seizure disorder noncompliant with medications, ETOH abuse, chornic a fib, history of subdural hematoma, HTN, CVA, CAD with 2 MIs is admitted after experiencing a witnessed seizure. CT of head is negative for acute changes but shows multiple areas of encephalomalacia. Lumbar spine shows no fracture but degenerative disc disease at L3-L4. Foot xray is negative. Fall: Head CT - multiple areas of encephalomalacia - stable compared to previous study (please see full report) Lumbar spine x-ray- negative for fractures betadine applied to head Seizure: Keppra [address] - multiple areas of encephalomalacia - stable compared to previous study (please see full report) Neurologist, Dr. Angelia Montes, consulted. Help appreciated. EEG pending Electrolyte Abnormalities: Improved Alcohol Withdrawal: Serum alcohol-97 Ativan 2 mg IV q2 prn Ativan 1 mg PO qid Banana bag in D5 Psych is consulted. COPD exacerbation - NC prn - Solumedrol 40 mg IV q8 - Azithromycin, rocephin SIRS: HR: 106 Improved WBC count CXR -negative Procalcitonin is .57 Coagulopathy: INR - 1.19 Platelet count stable, will avoid heparin H/H stable Iron studies pending Elevated Liver Function tests/transaminitis: T-bili improving AST/ALT improving Abdominal u/s shows echogenic liver parenchymal disease vs. fatty liver disease Chronic A fib. CHADs2 score of 3. HAS-BLED score of 4 so 8.9% risk of bleeding in this patient. Will consult cardiology for further recs Left foot pain - Xray of foot is negative - CT of Left LE is ordered Prophylactic Measures: GI: Protonix 40 mg po qd DVT: SCDs Case discussed with attending Dr. Shelton <Falguni Shelton B - Last Filed: 11/29/16 11:49> Objective - Vital Signs/Intake and Output Vital Signs (last 24 hours): Temp Pulse Resp BP Pulse Ox 97.8 F 91 H 20 144/101 H 96 11/29/16 05:56 11/29/16 10:45 11/29/16 05:56 11/29/16 10:45 11/29/16 05:56 Intake and Output: 11/29/16 11/29/16 06:59 18:59 Intake Total 1560 Balance 1560 - Medications Medications: Current Medications Clonidine HCl (Catapres) 0.2 mg PO TID PRN PRN Reason: Systolic Blood Pressure Last Admin: 11/28/16 21:55 Dose: 0.2 mg Folic Acid 1 mg/ Thiamine HCl 100 mg/ Multivitamins/Vitamin C 10 ml/ Dextrose 1 ,011.2 mls @ 100 mls/hr IV .Q10H7M [facility] Last Admin: 11/29/16 08:14 Dose: Not Given Ceftriaxone Sodium (Rocephin 1 Gram Ivpb) 1 gm in 100 mls @ 100 mls/hr IVPB DAILY [facility] PRN Reason: Protocol Last Admin: 11/29/16 09:05 Dose: 100 mls/hr Azithromycin (Zithromax 500mg In Ns) 500 mg in 250 mls @ 167 mls/hr IVPB DAILY [facility] PRN Reason: Protocol Last Admin: 11/29/16 10:46 Dose: 167 mls/hr Levalbuterol HCl (Xopenex) 1.25 mg IH TIDRESP [facility] Last Admin: 11/29/16 07:40 Dose: 1.25 mg Levetiracetam (Keppra) 500 mg PO BID [facility] Last Admin: 11/29/16 10:45 Dose: 500 mg Lorazepam (Ativan) 2 mg IV Q2H PRN PRN Reason: Symptoms of alcohol withdrawl Last Admin: 11/28/16 06:39 Dose: 2 mg Lorazepam (Ativan) 1 mg PO QID [facility] Last Admin: 11/29/16 10:45 Dose: 1 mg Methylprednisolone (Solu-Medrol) 40 mg IVP Q12H [facility] Last Admin: 11/29/16 10:53 Dose: 40 mg Metoprolol Tartrate (Lopressor) 25 mg PO BID [facility] Last Admin: 11/29/16 10:45 Dose: 25 mg Morphine Sulfate (Morphine) 1 mg IVP Q4H PRN PRN Reason: Pain, moderate (4-7) Last Admin: 11/27/16 18:54 Dose: 1 mg Nicotine (Nicoderm Cq) 1 patch TD DAILY PRN PRN Reason: withdrawal sxs Last Admin: 11/28/16 09:55 Dose: 1 patch Pantoprazole Sodium (Protonix Ec Tab) 40 mg PO 0630 [facility] Last Admin: 11/29/16 05:39 Dose: 40 mg - Labs Labs: 11/29/16 07:10 11/29/16 07:10 PT 12.8 Seconds (9.9-11.8) H 11/26/16 18:29 INR 1.19 (0.93-1.08) H 11/26/16 18:29 APTT 33.8 Seconds (23.7-30.8) H 11/26/16 18:29 Attending/Attestation - Attestation I have personally seen and examined this patient.: Yes I have fully participated in the care of the patient.: Yes I have reviewed all pertinent clinical information, including history, physical exam and plan: Yes Notes (Text): I have seen and examined patient at bedside. Agree with the above note with the following additions/ exceptions: This is 61 year old male with history of seizure disorder, alcohol abuse, cocaine/ marijuana use?, chronic atrial fibrillation, history of SDH, HTN, CVA, CAD who got admitted for evaluation of witnessed seizure and fall. He had head trauma and low back pain. CT head revealed encephalomalacia. L/S spine xray showed DJD of L3-L4. EEG result pending. Continue keppra. Neuro consult appreciated. Patient is on ativan. Judgment and insight is poor at this time due to withdrawal. BAL was 97. Psych recommendations noted. He has transaminitis. Hep panel is negative. Liver ultrasound revealed parenchymal disease vs fatty infiltration. He has CHADS2 score of 3. HAS-BLED score of 4 therefore high risk of bleeding. HR is 107 which is acceptable with no hemodynamic instability. Discussed with precision agronomist. Will obtain echo. Dr Falguni Shelton
[2016-11-28] MEDS: MethylPREDNISolone 40 mg Vial IVP SCH ×2 (14:09→21:50)
[2016-11-28] MEDS: Folic Acid 1 MG, Thiamine 100 MG, Multivitamin (MVI) 10 ML in Dextrose 5% In Water 1,00... IV SCH (14:12)
[2016-11-28] MEDS: Levalbuterol 1.25 MG/3 ML Inhal Soln UD IH SCH ×2 (14:45→20:09)
--- NOTE | 2016-11-28 15:20 | CON ---
DATE: 11/28/2016 REASON FOR CONSULTATION: History of coronary artery disease. The history was obtained from the aydin ent's friend at the bedside as well as from the chart. The patient is lethargic and does not give an y information. HISTORY OF PRESENT ILLNESS: The patient is a 61-year-old male who has a history of 2 heart attacks a nd one stroke in the past. He has history of seizures in the past, but he stopped his medications a few years ago and according to his friend the patient has been experiencing seizures for the past 3 d ays while drinking alcohol. The patient was brought in by the family because of witnessed seizure ac tivity. The patient's is unaware of coronary intervention that was performed on the patient in the p ast. PAST MEDICAL HISTORY: History of CVA and 2 heart attacks in the past. History of multiple subdural hematomas in the past, history of seizure activity. MEDICATIONS: Ativan 2 mg intravenous q. 2 hours p.r.n., clonidine 0.1 mg t.i.d., folic acid, multivi tamin infusion, Keppra 500 mg twice a day, nicotine patch, Protonix 40 mg p.o. once a day, Rocephin 1 gram intravenously daily, Solu-Medrol 40 mg intravenously q. 8 hours, Xopenex inhaler t.i.d., Zithro max 500 mg intravenously daily. PHYSICAL EXAMINATION: GENERAL: The patient is a middle-aged male who is lethargic, does not appear to be in acute distress . VITAL SIGNS: Blood pressure 180/118, heart rate 91, temperature 97.1, respirations 22. HEENT: No pallor or icterus. NECK: No JVD. CHEST: Diminished breath sounds over the bases. HEART: S1, S2 irregular. EXTREMITIES: No edema. LABORATORY DATA: CBC: WBC 9.5, hemoglobin 17.4, hematocrit 51.2, platelet count 72,000. SMA-7 toda y is within normal limits except for glucose of 47. Liver enzymes are slightly elevated. Calcium is within normal limits. Alcohol level on admission was 97. INR is 1.1 and PTT 33.8. EKG revealed at rial fibrillation at rate of 103. Echocardiograph study dating back to 2011 reported normal ejection fraction. CAT scan of the head: No definite acute intracranial injury or fracture seen. Multiple areas of enc ephalomalacia in the brain, stable in appearance, findings could be related to chronic infarct and/or remote traumatic injury. ASSESSMENT: 1. Status post alcohol intoxication. 2. Recurrent seizure activity. 3. Atrial fibrillation. 4. History of coronary artery disease, status post myocardial infarction in the past. 5. Thrombocytopenia. 6. Uncontrolled hypertension. RECOMMENDATIONS: Continue current IV Rocephin and IV Zithromax. Continue Solu-Medrol, increase clon idine to 0.2 mg t.i.d. Start Lopressor 25 mg twice a day. Obtain an echocardiogram and urine drug s creen. Fidel Barnes MD cc: [id number] TT: 11/28/2016 15:19:28 Confirmation # [id number] Dictation # [id number] jn
--- NOTE | 2016-11-28 19:21 | PN ---
DATE: 11/28/2016 The patient is a 61-year-old white male currently being treated for alcohol withdrawal. He also has a long history of alcohol abuse disorder. 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 LABORATORY DATA: His CAT scan showed multiple areas of encephalomalacia, which is stable compared to previous studies. MENTAL STATUS: He is awake, he appears to be aware of his surroundings. Denies hallucinations, para noia. He is oriented to the day and month. His concentration and memory seem impaired. He has inap propriate state of euphoria. No agitation. Judgment and insight impaired. LABORATORY DATA: He has a white count of 9500, hemoglobin of 17.4, platelet count 72,000. All his e lectrolytes and BUN and creatinine are normal. Random glucose is 47. He has a total bilirubin of 2. 5. AST of 112, ALT of 66. He had a CPK of 1342. VITAL SIGNS: Blood pressure 132/88, pulse 82, afebrile, respirations 20 per minute. The case was discussed with nursing staff. MEDICATIONS: Ativan is being given 2 mg IV p.r.n. Also has an order for 1 mg q.i.d. of Ativan which is being held if not necessary, Keppra, Lopressor, p.r.n. morphine, Protonix, Rocephin, Solu-M edrol 40 mg q. 8 hours, and Zithromax. IMPRESSION: He has alcohol withdrawal and intoxication. He has a traumatic brain injury, longstandi ng for 7 years, alcohol abuse disorder, chronic atrial fibrillation. The patient has lumbar disk dis ease, chronic obstructive pulmonary disease exacerbation, coagulopathy, elevated liver functions. PLAN: We will continue to monitor mental status. Aneesh Lees MD cc: [id number] TT: 11/28/2016 19:20:27 Confirmation # [id number] Dictation # [id number] indra
--- NOTE | 2016-11-28 22:14 | EEG ---
DATE: 11/28/2016 CONDITION OF THE RECORDING: Awake, drowsy, history of seizure. PAST MEDICAL HISTORY: History of ETOH abuse, traumatic brain injury, CVA and myocardial infarction. MEDICATIONS: Ativan and tramadol. DESCRIPTION: Background activity of this tracing was composed of 10-11 cycles per second alpha-like activity. Small amount of beta activity, 16-20 cycles per second was noted in the tracing. Theta ac tivity 5-7 cycles was also noted in the tracing. Drowsiness was composed of mixed beta and theta act ivity. Photic stimulation did not change the record. No paroxysmal . Isolated sharp waves wer e seen in the record. IMPRESSION: Abnormal EEG suggestive of a seizure, clinical correlation recommended. Wong Montes MD cc: [id number] TT: 11/28/2016 22:13:59 Confirmation # [id number] Dictation # [id number] dn
[2016-11-29] MEDS: Folic Acid 1 MG, Thiamine 100 MG, Multivitamin (MVI) 10 ML in Dextrose 5% In Water 1,00... IV SCH ×4 (01:53→18:16)
[2016-11-29] MEDS: MethylPREDNISolone 40 mg Vial IVP SCH ×3 (05:39→22:11)
[2016-11-29] MEDS: Pantoprazole 40 mg EC Tab PO SCH (05:39)
[2016-11-29] MEDS: Levalbuterol 1.25 MG/3 ML Inhal Soln UD IH SCH ×3 (07:40→20:30)
[2016-11-29 07:46] LABS: ADD MANUAL DIFF? NO
[2016-11-29 07:51] LABS: EOS % 0.1 % (1.5-5.0); GRAN # 5.64 (1.4-6.5); GRAN % 83.7 % (50.0-68.0); HEMATOCRIT 49.9 % (42.0-52.0); LYMPH # 0.6 (1.2-3.4); LYMPH % 8.3 % (22.0-35.0); MEAN CELL VOLUME 94.5 fL (80.0-105.0); MEAN CORPUSCULAR HEMOGLOBIN 32.6 pg (25.0-35.0); MEAN CORPUSCULAR HGB CONC 34.5 g/dl (31.0-37.0); MEAN PLATELET VOLUME 11.2 fl (7.0-11.0); MONO # 0.5 (0.1-0.6); MONO % 7.9 % (1.0-6.0); PLATELET COUNT 87 10^3/uL (120.0-450.0); RED CELL DISTRIBUTION WIDTH 13.4 % (11.5-14.5); WHITE BLOOD COUNT 6.7 10^3/ul (4.5-11.0)
[2016-11-29 08:07] LABS: ALB/GLOB RATIO 1.1 (1.1-1.8); ALKALINE PHOSPHATASE 84 U/L (38-133); ALT/SGPT 54 U/L (7-56); AST/SGOT 50 U/L (15-59); BILIRUBIN,TOTAL 1.9 mg/dL (0.2-1.3); BLOOD UREA NITROGEN 15 mg/dL (7-21); CALCIUM 9.2 mg/dL (8.4-10.5); CARBON DIOXIDE 25 mmol/L (21-33); CHLORIDE 100 mmol/L (95-110); GFR AFRICAN-AMERICAN > 60; GLUCOSE,RANDOM 272 mg/dL (70-110); POTASSIUM 3.7 mmol/L (3.6-5.0); SODIUM 136 mmol/L (132-148); TOTAL PROTEIN 6.6 g/dL (5.8-8.3)
[2016-11-29] MEDS: cefTRIAXone 1 gm 1 GM/100 ML BAG IVPB SCH (09:05)
[2016-11-29] MEDS: Azithromycin 500MG/NS 250ml 500 MG/250 ML BAG IVPB SCH (10:46)
--- NOTE | 2016-11-29 11:04 | CP.PCM.PN ---
<Jed Leal - Last Filed: 11/29/16 10:56> Subjective - Date & Time of Evaluation Date of Evaluation: 11/29/16 Time of Evaluation: 07:20 - Subjective Subjective: Hospitalist progress note: Pt is seen and examined at bedside. No acute events overnight. Patient denies any complaints at this time. Patient denies having any Joy, dizziness, f/c, CP, SOB, Abd pain, N/V/D/C. Objective - Vital Signs/Intake and Output Vital Signs (last 24 hours): Temp Pulse Resp BP Pulse Ox 97.8 F 91 H 20 144/101 H 96 11/29/16 05:56 11/29/16 10:45 11/29/16 05:56 11/29/16 10:45 11/29/16 05:56 Intake and Output: 11/29/16 11/29/16 06:59 18:59 Intake Total 1560 Balance 1560 - Medications Medications: Current Medications Clonidine HCl (Catapres) 0.2 mg PO TID PRN PRN Reason: Systolic Blood Pressure Last Admin: 11/28/16 21:55 Dose: 0.2 mg Folic Acid 1 mg/ Thiamine HCl 100 mg/ Multivitamins/Vitamin C 10 ml/ Dextrose 1 ,011.2 mls @ 100 mls/hr IV .Q10H7M [facility] Last Admin: 11/29/16 08:14 Dose: Not Given Ceftriaxone Sodium (Rocephin 1 Gram Ivpb) 1 gm in 100 mls @ 100 mls/hr IVPB DAILY [facility] PRN Reason: Protocol Last Admin: 11/29/16 09:05 Dose: 100 mls/hr Azithromycin (Zithromax 500mg In Ns) 500 mg in 250 mls @ 167 mls/hr IVPB DAILY [facility] PRN Reason: Protocol Last Admin: 11/29/16 10:46 Dose: 167 mls/hr Levalbuterol HCl (Xopenex) 1.25 mg IH TIDRESP [facility] Last Admin: 11/29/16 07:40 Dose: 1.25 mg Levetiracetam (Keppra) 500 mg PO BID [facility] Last Admin: 11/29/16 10:45 Dose: 500 mg Lorazepam (Ativan) 2 mg IV Q2H PRN PRN Reason: Symptoms of alcohol withdrawl Last Admin: 11/28/16 06:39 Dose: 2 mg Lorazepam (Ativan) 1 mg PO QID [facility] Last Admin: 11/29/16 10:45 Dose: 1 mg Methylprednisolone (Solu-Medrol) 40 mg IVP Q12H [facility] Last Admin: 11/29/16 10:53 Dose: 40 mg Metoprolol Tartrate (Lopressor) 25 mg PO BID [facility] Last Admin: 11/29/16 10:45 Dose: 25 mg Morphine Sulfate (Morphine) 1 mg IVP Q4H PRN PRN Reason: Pain, moderate (4-7) Last Admin: 11/27/16 18:54 Dose: 1 mg Nicotine (Nicoderm Cq) 1 patch TD DAILY PRN PRN Reason: withdrawal sxs Last Admin: 11/28/16 09:55 Dose: 1 patch Pantoprazole Sodium (Protonix Ec Tab) 40 mg PO 0630 [facility] Last Admin: 11/29/16 05:39 Dose: 40 mg - Labs Labs: 11/29/16 07:10 11/29/16 07:10 PT 12.8 Seconds (9.9-11.8) H 11/26/16 18:29 INR 1.19 (0.93-1.08) H 11/26/16 18:29 APTT 33.8 Seconds (23.7-30.8) H 11/26/16 18:29 - Constitutional Appears: No Acute Distress - Head Exam Head Exam: ATRAUMATIC, NORMAL INSPECTION, NORMOCEPHALIC - Eye Exam Eye Exam: EOMI, Normal appearance, PERRL Pupil Exam: NORMAL ACCOMODATION, PERRL - ENT Exam ENT Exam: Mucous Membranes Moist, Normal Exam - Neck Exam Neck Exam: Full ROM, Normal Inspection. absent: Lymphadenopathy - Respiratory Exam Respiratory Exam: Clear to Ausculation Bilateral, NORMAL BREATHING PATTERN. absent: Wheezes - Cardiovascular Exam Cardiovascular Exam: REGULAR RHYTHM, RRR, +S1, +S2. absent: Murmur - GI/Abdominal Exam GI & Abdominal Exam: Soft. absent: Distended, Tenderness - Extremities Exam Extremities Exam: Full ROM, Normal Capillary Refill, Normal Inspection. absent : Joint Swelling, Pedal Edema - Back Exam Back Exam: NORMAL INSPECTION - Neurological Exam Neurological Exam: Alert, Awake, Oriented x3 - Psychiatric Exam Psychiatric exam: Normal Affect, Normal Mood - Skin Skin Exam: Dry, Intact, Normal Color, Warm Assessment and Plan - Assessment and Plan (Free Text) Assessment: 61 year old male with past medical history of seizure disorder noncompliant with medications, ETOH abuse, chornic a fib, history of subdural hematoma, HTN, CVA, CAD with 2 MIs is admitted after experiencing a witnessed seizure. CT of head is negative for acute changes but shows multiple areas of encephalomalacia. Lumbar spine shows no fracture but degenerative disc disease at L3-L4. Foot xray is negative. Hip xray was negative. 1. Fall: Head CT - multiple areas of encephalomalacia - stable compared to previous study (please see full report) Lumbar spine x-ray- negative for fractures Hip pelvis xray unremarkable betadine applied to head 2.Seizure: Keppra [address] - multiple areas of encephalomalacia - stable compared to previous study (please see full report) Neurologist, Dr. Angelia Montes, consulted appreciate recs EEG - abnormal suggestive of seizures 3. Electrolyte Abnormalities: hypokalemia and hyponatremia resolved 4. Alcohol Withdrawal: Serum alcohol-97 Cont Ativan 2 mg IV q2 prn and Ativan 1 mg PO qid Banana bag in D5 F/u Psych consult - cont to monitor mental status 5. COPD exacerbation NC prn Solumedrol 40 mg IV q8 decreased to Q12h Azithromycin and rocephin 6. Rhabdo - resolving CPK 2754--> 1342--> 323 this am cont to monitor 7. SIRS: HR: 91 this am Improved WBC count CXR -negative Procalcitonin is .57 8. Coagulopathy: Platelet count stable, will avoid heparin - 87 this am H/H stable Iron studies Iron, 125, Ferritin 572, TIBC 269, Transferrin 197 F/u folate and vit B12 9. Elevated Liver Function tests/transaminitis: T-bili improving 2.5--> 1.9 AST/ALT improving - AST 54 , ALT 50 Abdominal u/s shows echogenic liver parenchymal disease vs. fatty liver disease 10. Chronic A fib. CHADs2 score of 3. HAS-BLED score of 4 so 8.9% risk of bleeding in this patient F/u Echo done this am Will consult cardiology for further recs 11. Left foot pain - Xray of foot is negative - CT of Left LE is ordered 12. Prophylactic Measures: GI: Protonix 40 mg po qd DVT: SCDs Case and plan was seen, reviewed, and discussed in detail with Dr Shelton. <Falguni Shelton - Last Filed: 11/29/16 12:13> Objective - Vital Signs/Intake and Output Vital Signs (last 24 hours): Temp Pulse Resp BP Pulse Ox 97.8 F 91 H 20 144/101 H 96 11/29/16 05:56 11/29/16 10:45 11/29/16 05:56 11/29/16 10:45 11/29/16 05:56 Intake and Output: 11/29/16 11/29/16 06:59 18:59 Intake Total 1560 Balance 1560 - Medications Medications: Current Medications Clonidine HCl (Catapres) 0.2 mg PO TID PRN PRN Reason: Systolic Blood Pressure Last Admin: 11/28/16 21:55 Dose: 0.2 mg Folic Acid 1 mg/ Thiamine HCl 100 mg/ Multivitamins/Vitamin C 10 ml/ Dextrose 1 ,011.2 mls @ 100 mls/hr IV .Q10H7M [facility] Last Admin: 11/29/16 08:14 Dose: Not Given Ceftriaxone Sodium (Rocephin 1 Gram Ivpb) 1 gm in 100 mls @ 100 mls/hr IVPB DAILY [facility] PRN Reason: Protocol Last Admin: 11/29/16 09:05 Dose: 100 mls/hr Azithromycin (Zithromax 500mg In Ns) 500 mg in 250 mls @ 167 mls/hr IVPB DAILY [facility] PRN Reason: Protocol Last Admin: 11/29/16 10:46 Dose: 167 mls/hr Levalbuterol HCl (Xopenex) 1.25 mg IH TIDRESP [facility] Last Admin: 11/29/16 07:40 Dose: 1.25 mg Levetiracetam (Keppra) 500 mg PO BID [facility] Last Admin: 11/29/16 10:45 Dose: 500 mg Lorazepam (Ativan) 2 mg IV Q2H PRN PRN Reason: Symptoms of alcohol withdrawl Last Admin: 11/28/16 06:39 Dose: 2 mg Lorazepam (Ativan) 1 mg PO QID [facility] Last Admin: 11/29/16 10:45 Dose: 1 mg Methylprednisolone (Solu-Medrol) 40 mg IVP Q12H [facility] Last Admin: 11/29/16 10:53 Dose: 40 mg Metoprolol Tartrate (Lopressor) 25 mg PO BID [facility] Last Admin: 11/29/16 10:45 Dose: 25 mg Morphine Sulfate (Morphine) 1 mg IVP Q4H PRN PRN Reason: Pain, moderate (4-7) Last Admin: 11/27/16 18:54 Dose: 1 mg Nicotine (Nicoderm Cq) 1 patch TD DAILY PRN PRN Reason: withdrawal sxs Last Admin: 11/28/16 09:55 Dose: 1 patch Pantoprazole Sodium (Protonix Ec Tab) 40 mg PO 0630 [facility] Last Admin: 11/29/16 05:39 Dose: 40 mg - Labs Labs: 11/29/16 07:10 11/29/16 07:10 PT 12.8 Seconds (9.9-11.8) H 11/26/16 18:29 INR 1.19 (0.93-1.08) H 11/26/16 18:29 APTT 33.8 Seconds (23.7-30.8) H 11/26/16 18:29 Attending/Attestation - Attestation I have personally seen and examined this patient.: Yes I have fully participated in the care of the patient.: Yes I have reviewed all pertinent clinical information, including history, physical exam and plan: Yes Notes (Text): I have seen and examined patient at bedside. Agree with the above note with the following additions/ exceptions: This is 61 year old male with history of seizure disorder, alcohol abuse, cocaine/ marijuana use?, chronic atrial fibrillation, history of SDH, HTN, CVA, CAD who got admitted for evaluation of witnessed seizure and fall. He had head trauma and low back pain. CT head revealed encephalomalacia. L/S spine xray showed DJD of L3-L4. EEG abnormal. Continue keppra. Neuro consult appreciated. Patient is on ativan. Patient is awake and oriented x3 however appears somnolent. Judgment and insight is poor at this time due to withdrawal. BAL was 97. Psych on board. Yesterday patient was noted to have bilateral wheezing. Today wheezing has improved significantly. Sats on RA 91%. Continue NC for now. Continue to taper steroids. He has transaminitis. Hep panel is negative. Liver ultrasound revealed parenchymal disease vs fatty infiltration. He has CHADS2 score of 3. HAS-BLED score of 4 therefore high risk of bleeding. There is no hemodynamic instability. Discussed with water taxi driver. Echo result pending. Continue lopressor and catapress prn. Upon discharge patient will follow up with Dr Curtis/ PMD of choice. Dr Falguni Shelton
--- NOTE | 2016-11-29 13:51 | PN ---
DATE: 11/29/2016 SUBJECTIVE: The patient is oriented to place. No reported seizure activity. He is 1:1 watch. No r eported ventricular arrhythmia. PHYSICAL EXAMINATION: VITAL SIGNS: Blood pressure 144/101, heart rate 91, temperature 97.8, respiration 20. HEENT: Normocephalic. NECK: No JVD. CHEST: Clear. HEART: S1, S2 regular. EXTREMITIES: No edema. LABORATORIES: Today's hemoglobin and hematocrit 17.1 and 49.9, white count 6.7, platelet count 87,00 0. SMA-7 is within normal limits except for glucose of 272, total bilirubin slightly elevated at 1.9 . ASSESSMENT: 1. Recurrent seizure activity. 2. Alcohol withdrawal. 3. Uncontrolled hypertension. 4. History of coronary artery disease in the past. RECOMMENDATIONS: Increase clonidine to 0.3 mg t.i.d. Continue Lopressor 25 mg twice a day, IV Rocep hin 1 gram daily, Zithromax at 500 mg intravenously daily. I will review the echocardiographic study performed today. Fidel Barnes MD cc: [id number] TT: 11/29/2016 13:50:26 Confirmation # [id number] Dictation # [id number]
--- NOTE | 2016-11-29 16:14 | CARD ---
APPROVED REPORT EXAM: Two-dimensional and M-mode echocardiogram with Doppler and color Doppler. 2D DIMENSIONS Left Atrium (2D)3.9 (1.6-4.0cm)IVSd1.4 (0.7-1.1cm) LVDd4.0 (3.9-5.9cm)PWd1.3 (0.7-1.1cm) LVDs2.7 (2.5-4.0cm)FS (%) 32.8 % LVEF (%)61.7 (>50%) M-Mode DIMENSIONS Aortic Root3.70 (2.2-3.7cm)Aortic Cusp Exc.2.10 (1.5-2.0cm) Aortic Valve AoV Peak Avicolrm475.0cm/sAoV VTI8.4cmAO Peak GR.7mmHg LVOT Peak Ardiufda94.2cm/sLVOT VTI7.94cmAO Mean GR.2mmHg Mitral Valve MV E Aafafdap74.3cm/sE/A ratio0.0 TDI Lateral E' Peak V13.50cm/sMedial E' Peak V8.48cm/sE/Lateral E'4.2 E/Medial E'6.8 Tricuspid Valve TR Peak Rjvoqihw201hp/sTR Peak Gr.17mmHg LEFT VENTRICLE The left ventricle is normal size. There is mild to moderate concentric left ventricular hypertrophy. The left ventricular function is normal. The left ventricular ejection fraction is within the normal range. Transmitral Doppler flow pattern is Grade I-abnormal relaxation pattern. RIGHT VENTRICLE The right ventricle is normal size. There is normal right ventricular wall thickness. The right ventricular systolic function is normal. ATRIA The left atrium size is normal. The right atrium size is normal. AORTIC VALVE The aortic valve is mildly thickened. MITRAL VALVE The mitral valve is mildly thickened. Mitral regurgitation is mild. TRICUSPID VALVE There is no pulmonary hypertension. GREAT VESSELS The aortic root is normal in size. PERICARDIAL EFFUSION There is a trace loculated anterior pericardial effusion. <Conclusion> The left ventricle is normal size. There is mild to moderate concentric left ventricular hypertrophy. The left ventricular function is normal. The left ventricular ejection fraction is within the normal range. Transmitral Doppler flow pattern is Grade I-abnormal relaxation pattern. Mitral regurgitation is mild.
--- NOTE | 2016-11-29 16:23 | PN ---
DATE: 11/29/2016 HISTORY OF PRESENT ILLNESS: The patient is a 61-year-old male currently for seizures and alcohol wit [facility]. Currently, his mental status today reveals that he is awake, he is alert, aware of his surr oundings, aware of the nature of his problems and his drinking, not having any psychotic symptoms, ca lm, cooperative with nursing staff. The patient slept well through the night without any adverse jose nts. CURRENT LABORATORY DATA: His white count is 6500, hemoglobin of 17.2, platelet count of 87,000. His metabolic profile is all normal except for a random glucose of 272, total bilirubin 1.9. CPK 323. MEDICATIONS: Currently include Ativan 2 mg q. 2 h. p.r.n., Ativan 1 mg p.o. q.i.d., Catapres p.r.n. , folate, thiamine IV, Keppra, Lopressor, p.r.n. morphine, Nicoderm patch, Protonix, Solu-Medrol, az ithromycin IV. VITAL SIGNS: Blood pressure 143/97, pulse 102, afebrile, respirations 20 per minute. IMPRESSION: The patient has a history of chronic traumatic brain disease, seizure disorder, alcohol withdrawal, chronic obstructive pulmonary disease exacerbation, recent rhabdomyolysis, chronic atrial fibrillation, elevated liver functions, coagulopathy. PLAN: Lorazepam to 0.5 mg b.i.d. and 1 mg at bedtime, lower p.r.n. Ativan to 1 mg IV q. 4 hours p.r .n. withdrawal symptoms. We will discuss with nursing staff. Aneesh Lees MD cc: [id number] TT: 11/29/2016 16:22:47 Confirmation # [id number] Dictation # [id number] jn
[2016-11-30] MEDS: Folic Acid 1 MG, Thiamine 100 MG, Multivitamin (MVI) 10 ML in Dextrose 5% In Water 1,00... IV SCH ×4 (03:21→16:47)
[2016-11-30] MEDS: Pantoprazole 40 mg EC Tab PO SCH (05:53)
[2016-11-30 06:48] LABS: ADD MANUAL DIFF? NO
[2016-11-30 07:09] LABS: GRAN # 9.11 (1.4-6.5); GRAN % 86.8 % (50.0-68.0); HEMATOCRIT 50.4 % (42.0-52.0); LYMPH # 0.6 (1.2-3.4); LYMPH % 5.5 % (22.0-35.0); MEAN CELL VOLUME 94.7 fL (80.0-105.0); MEAN CORPUSCULAR HEMOGLOBIN 33.1 pg (25.0-35.0); MEAN CORPUSCULAR HGB CONC 34.9 g/dl (31.0-37.0); MONO # 0.8 (0.1-0.6); MONO % 7.7 % (1.0-6.0); PLATELET COUNT 133 10^3/uL (120.0-450.0); RED CELL DISTRIBUTION WIDTH 13.3 % (11.5-14.5); WHITE BLOOD COUNT 10.5 10^3/ul (4.5-11.0)
[2016-11-30 07:11] LABS: ALB/GLOB RATIO 1.1 (1.1-1.8); ALKALINE PHOSPHATASE 74 U/L (38-133); ALT/SGPT 71 U/L (7-56); AST/SGOT 50 U/L (15-59); BILIRUBIN,TOTAL 1.9 mg/dL (0.2-1.3); BLOOD UREA NITROGEN 18 mg/dL (7-21); CALCIUM 9.7 mg/dL (8.4-10.5); CARBON DIOXIDE 28 mmol/L (21-33); CHLORIDE 97 mmol/L (98-107); GFR AFRICAN-AMERICAN > 60; GLUCOSE,RANDOM 220 mg/dL (70-110); POTASSIUM 4.4 mmol/L (3.6-5.0); SODIUM 136 mmol/L (132-148)
[2016-11-30] MEDS: Levalbuterol 1.25 MG/3 ML Inhal Soln UD IH SCH ×3 (07:37→19:46)
[2016-11-30] MEDS: cefTRIAXone 1 gm 1 GM/100 ML BAG IVPB SCH (09:14)
[2016-11-30] MEDS: Azithromycin 500MG/NS 250ml 500 MG/250 ML BAG IVPB SCH (10:44)
[2016-11-30] MEDS: MethylPREDNISolone 40 mg Vial IVP SCH ×2 (11:03→21:37)
--- NOTE | 2016-11-30 11:07 | CP.PCM.PN ---
<Jed Leal - Last Filed: 11/30/16 10:50> Subjective - Date & Time of Evaluation Date of Evaluation: 11/30/16 Time of Evaluation: 07:00 - Subjective Subjective: Hospitalist progress note: Pt is seen and examined at bedside. No acute events overnight. Patient c/o of some non productive cough. No other complaints. Patient denies having any Joy, dizziness, f/c, chest pain , SOB , Abd pain, N/V/D/C urinary changes. Objective - Vital Signs/Intake and Output Vital Signs (last 24 hours): Temp Pulse Resp BP Pulse Ox 97.8 F 93 H 20 159/114 H 93 L 11/30/16 06:00 11/30/16 06:00 11/30/16 06:00 11/30/16 06:00 11/30/16 06:00 Intake and Output: 11/30/16 11/30/16 06:59 18:59 Intake Total 1440 Output Total 650 Balance 790 - Medications Medications: Current Medications Clonidine HCl (Catapres) 0.3 mg PO TID PRN PRN Reason: Systolic Blood Pressure Last Admin: 11/30/16 05:53 Dose: 0.3 mg Clonidine HCl (Catapres) 0.1 mg PO BID COUNTS INCLUDE 234 BEDS AT THE [facility] Folic Acid 1 mg/ Thiamine HCl 100 mg/ Multivitamins/Vitamin C 10 ml/ Dextrose 1 ,011.2 mls @ 100 mls/hr IV .Q10H7M COUNTS INCLUDE 234 BEDS AT THE [facility] Last Admin: 11/30/16 04:58 Dose: Not Given Ceftriaxone Sodium (Rocephin 1 Gram Ivpb) 1 gm in 100 mls @ 100 mls/hr IVPB DAILY COUNTS INCLUDE 234 BEDS AT THE [facility] PRN Reason: Protocol Last Admin: 11/30/16 09:14 Dose: 100 mls/hr Azithromycin (Zithromax 500mg In Ns) 500 mg in 250 mls @ 167 mls/hr IVPB DAILY COUNTS INCLUDE 234 BEDS AT THE [facility] PRN Reason: Protocol Last Admin: 11/30/16 10:44 Dose: 167 mls/hr Levalbuterol HCl (Xopenex) 1.25 mg IH TIDRESP COUNTS INCLUDE 234 BEDS AT THE [facility] Last Admin: 11/30/16 07:37 Dose: 1.25 mg Levetiracetam (Keppra) 500 mg PO BID COUNTS INCLUDE 234 BEDS AT THE [facility] Last Admin: 11/29/16 18:14 Dose: 500 mg Lorazepam (Ativan) 0.5 mg PO BID COUNTS INCLUDE 234 BEDS AT THE [facility] Last Admin: 11/29/16 18:13 Dose: 0.5 mg Lorazepam (Ativan) 1 mg PO HS COUNTS INCLUDE 234 BEDS AT THE [facility] Last Admin: 11/29/16 22:12 Dose: 1 mg Lorazepam (Ativan) 1 mg IV Q4H PRN PRN Reason: Restlessness Methylprednisolone (Solu-Medrol) 20 mg IVP Q12H COUNTS INCLUDE 234 BEDS AT THE [facility] Metoprolol Tartrate (Lopressor) 25 mg PO BID COUNTS INCLUDE 234 BEDS AT THE [facility] Last Admin: 11/29/16 18:13 Dose: 25 mg Morphine Sulfate (Morphine) 1 mg IVP Q4H PRN PRN Reason: Pain, moderate (4-7) Last Admin: 11/27/16 18:54 Dose: 1 mg Nicotine (Nicoderm Cq) 1 patch TD DAILY PRN PRN Reason: withdrawal sxs Last Admin: 11/28/16 09:55 Dose: 1 patch Pantoprazole Sodium (Protonix Ec Tab) 40 mg PO 0630 COUNTS INCLUDE 234 BEDS AT THE [facility] Last Admin: 11/30/16 05:53 Dose: 40 mg - Labs Labs: 11/30/16 06:30 11/30/16 06:30 PT 12.8 Seconds (9.9-11.8) H 11/26/16 18:29 INR 1.19 (0.93-1.08) H 11/26/16 18:29 APTT 33.8 Seconds (23.7-30.8) H 11/26/16 18:29 - Constitutional Appears: No Acute Distress - Head Exam Head Exam: ATRAUMATIC, NORMAL INSPECTION, NORMOCEPHALIC - Eye Exam Eye Exam: EOMI, Normal appearance, PERRL - ENT Exam ENT Exam: Mucous Membranes Moist, Normal Exam - Neck Exam Neck Exam: Full ROM, Normal Inspection. absent: Lymphadenopathy - Respiratory Exam Respiratory Exam: Clear to Ausculation Bilateral, NORMAL BREATHING PATTERN - Cardiovascular Exam Cardiovascular Exam: REGULAR RHYTHM, +S1, +S2. absent: Murmur - GI/Abdominal Exam GI & Abdominal Exam: Soft, Normal Bowel Sounds. absent: Distended, Tenderness - Extremities Exam Extremities Exam: Full ROM, Normal Capillary Refill, Normal Inspection. absent : Joint Swelling, Pedal Edema - Back Exam Back Exam: NORMAL INSPECTION - Neurological Exam Neurological Exam: Alert, Awake, Oriented x3 - Psychiatric Exam Psychiatric exam: Normal Affect, Normal Mood - Skin Skin Exam: Dry, Intact, Normal Color, Warm Assessment and Plan - Assessment and Plan (Free Text) Assessment: 61 year old male with past medical history of seizure disorder noncompliant with medications, ETOH abuse, chornic a fib, history of subdural hematoma, HTN, CVA, CAD with 2 MIs is admitted after experiencing a witnessed seizure. CT of head is negative for acute changes but shows multiple areas of encephalomalacia. Lumbar spine shows no fracture but degenerative disc disease at L3-L4. Foot xray is negative. Hip xray was negative. 1. Fall: Head CT - multiple areas of encephalomalacia - stable compared to previous study (please see full report) Lumbar spine x-ray- negative for fractures Hip pelvis xray - unremarkable betadine applied to head 2.Seizure: Keppra [address] - multiple areas of encephalomalacia - stable compared to previous study (please see full report) Neurologist, Dr. Angelia Montes, consulted appreciate recs EEG - abnormal suggestive of seizures - f/u neurology recs Seizure precautions 3. Electrolyte Abnormalities: Hypokalemia and hyponatremia resolved 4. Alcohol Withdrawal: Serum alcohol-97 Cont Ativan 2 mg IV q2 prn and Ativan 1 mg PO qid Banana bag in D5 F/u Psych consult - Dr Lees - cont to monitor mental status 5. COPD exacerbation Non productive cough this am Cont Azithromycin and rocephin NC O2 supplementation prn Solumedrol 40 mg IV Q12h taper to 20mg Q12H 6. Rhabdo - resolved CPK 2754--> 1342--> 323--> 138 this am cont to monitor 7. SIRS: resolved Cont to monitor CXR -negative Procalcitonin is .57 8. Coagulopathy: Platelet count stable, will avoid heparin - 133 this am H/H stable Iron studies Iron, 125, Ferritin 572, TIBC 269, Transferrin 197 F/u folate and vit B12 pending 9. Elevated Liver Function tests/transaminitis: T-bili 1.9 AST/ALT improving - AST 50 , ALT 71 this AM Abdominal u/s shows echogenic liver parenchymal disease vs. fatty liver disease 10. Chronic A fib. No on any anticoagulation due to Hx of TBI with subdural hematoma CHADs2 score of 3. HAS-BLED score of 4 so 8.9% risk of bleeding in this patient F/u Echo - Normal EF F/u Cardiology Dr Lara recs 11. Left foot pain Xray of foot is negative CT of Left LE is ordered 12. Prophylactic Measures: GI: Protonix 40 mg po qd DVT: SCDs Case and plan was seen, reviewed, and discussed in detail with Dr Garcia. <Chauncey Garcia - Last Filed: 11/30/16 13:34> Objective - Vital Signs/Intake and Output Vital Signs (last 24 hours): Temp Pulse Resp BP Pulse Ox 97.3 F L 75 18 148/110 H 93 L 11/30/16 12:00 11/30/16 12:00 11/30/16 12:00 11/30/16 12:00 11/30/16 06:00 Intake and Output: 11/30/16 11/30/16 06:59 18:59 Intake Total 1440 Output Total 650 Balance 790 - Medications Medications: Current Medications Clonidine HCl (Catapres) 0.3 mg PO TID PRN PRN Reason: Systolic Blood Pressure Last Admin: 11/30/16 05:53 Dose: 0.3 mg Clonidine HCl (Catapres) 0.1 mg PO BID COUNTS INCLUDE 234 BEDS AT THE [facility] Last Admin: 11/30/16 11:01 Dose: 0.1 mg Folic Acid 1 mg/ Thiamine HCl 100 mg/ Multivitamins/Vitamin C 10 ml/ Dextrose 1 ,011.2 mls @ 100 mls/hr IV .Q10H7M COUNTS INCLUDE 234 BEDS AT THE [facility] Last Admin: 11/30/16 04:58 Dose: Not Given Ceftriaxone Sodium (Rocephin 1 Gram Ivpb) 1 gm in 100 mls @ 100 mls/hr IVPB DAILY COUNTS INCLUDE 234 BEDS AT THE [facility] PRN Reason: Protocol Last Admin: 11/30/16 09:14 Dose: 100 mls/hr Azithromycin (Zithromax 500mg In Ns) 500 mg in 250 mls @ 167 mls/hr IVPB DAILY COUNTS INCLUDE 234 BEDS AT THE [facility] PRN Reason: Protocol Last Admin: 11/30/16 10:44 Dose: 167 mls/hr Levalbuterol HCl (Xopenex) 1.25 mg IH TIDRESP COUNTS INCLUDE 234 BEDS AT THE [facility] Last Admin: 11/30/16 07:37 Dose: 1.25 mg Levetiracetam (Keppra) 500 mg PO BID COUNTS INCLUDE 234 BEDS AT THE [facility] Last Admin: 11/30/16 11:01 Dose: 500 mg Lorazepam (Ativan) 0.5 mg PO BID COUNTS INCLUDE 234 BEDS AT THE [facility] Last Admin: 11/30/16 11:00 Dose: 0.5 mg Lorazepam (Ativan) 1 mg PO HS COUNTS INCLUDE 234 BEDS AT THE [facility] Last Admin: 11/29/16 22:12 Dose: 1 mg Lorazepam (Ativan) 1 mg IV Q4H PRN PRN Reason: Restlessness Methylprednisolone (Solu-Medrol) 20 mg IVP Q12H COUNTS INCLUDE 234 BEDS AT THE [facility] Last Admin: 11/30/16 11:03 Dose: 20 mg Metoprolol Tartrate (Lopressor) 25 mg PO BID COUNTS INCLUDE 234 BEDS AT THE [facility] Last Admin: 11/30/16 11:01 Dose: 25 mg Morphine Sulfate (Morphine) 1 mg IVP Q4H PRN PRN Reason: Pain, moderate (4-7) Last Admin: 11/27/16 18:54 Dose: 1 mg Nicotine (Nicoderm Cq) 1 patch TD DAILY PRN PRN Reason: withdrawal sxs Last Admin: 11/28/16 09:55 Dose: 1 patch Pantoprazole Sodium (Protonix Ec Tab) 40 mg PO 0630 COUNTS INCLUDE 234 BEDS AT THE [facility] Last Admin: 11/30/16 05:53 Dose: 40 mg - Labs Labs: 11/30/16 06:30 11/30/16 06:30 PT 12.8 Seconds (9.9-11.8) H 11/26/16 18:29 INR 1.19 (0.93-1.08) H 11/26/16 18:29 APTT 33.8 Seconds (23.7-30.8) H 11/26/16 18:29 Attending/Attestation - Attestation I have personally seen and examined this patient.: Yes I have fully participated in the care of the patient.: Yes I have reviewed all pertinent clinical information, including history, physical exam and plan: Yes Notes (Text): 11/30/16 13:31 attending note; I have seen and examined patient at bedside with resident. This is 61 year old male with history of seizure disorder, alcohol abuse, cocaine/ marijuana use?, chronic atrial fibrillation, history of SDH, HTN, CVA, CAD who got admitted for evaluation of witnessed seizure and fall. He had head trauma and low back pain. CT head revealed encephalomalacia. L/S spine xray showed DJD of L3-L4. EEG abnormal. started on keppra. Neuro consult with Dr. Montes appreciated. Patient is on ativan. Patient is awake and oriented x3 . Judgment and insight is poor at this time due to withdrawal. COPD; improved significantly. Taper steroids. He has transaminitis Secondary to alcohol abuse. Hep panel is negative. Liver ultrasound revealed parenchymal disease vs fatty infiltration. He has CHADS2 score of 3. HAS-BLED score of 4 therefore high risk of bleeding. not a candidate for long-term anti-coagulation secondary to noncompliance multiple falls, continuous al abuse. Continue lopressor and catapress prn. Out of bed to chair as tolerated. Physical therapy evaluation requested. Upon discharge patient will follow up with Dr Curtis/ PMD of choice.
[2016-11-30 11:35] LABS: FOLATE > 20.0 ng/mL
--- NOTE | 2016-11-30 14:18 | PN ---
DATE: 11/30/2016 The patient is oriented to place. He denies chest pain. No reported ventricular arrhythmia. PHYSICAL EXAMINATION: VITAL SIGNS: Blood pressure 148/110, heart rate 75, temperature 97.3, respirations 18. HEENT: Normocephalic. NECK: No JVD. CHEST: Clear. HEART: S1, S2 regular. EXTREMITIES: No edema. LABORATORIES: Today's CBC: WBC 10.5, hemoglobin and hematocrit 17.6 and 50.4, platelet count 133,00 0. SMA-7 is within normal limits except for glucose of 220 and carbon dioxide of 97. Echocardiograp h study yesterday revealed normal left ventricular size, mild to moderate concentric LVH with normal systolic function and normal ejection fraction and grade I abnormal relaxation pattern, mild mitral i nsufficiency. ASSESSMENT: 1. Recurrent seizures. 2. Alcohol withdrawal. 3. History of subdural hematoma in the past. 4. Uncontrolled hypertension. RECOMMENDATIONS: Continue clonidine 0.3 mg t.i.d. Increase Lopressor to 50 mg twice a day and start Norvasc at 5 mg orally once a day. In the meantime, continue IV Rocephin and IV Zithromax besides S laine-Medrol and Xopenex inhaler. Fidel Barnes MD cc: [id number] TT: 11/30/2016 14:18:13 Confirmation # [id number] Dictation # [id number]
[2016-12-01] MEDS: Folic Acid 1 MG, Thiamine 100 MG, Multivitamin (MVI) 10 ML in Dextrose 5% In Water 1,00... IV SCH (02:54)
[2016-12-01 06:46] LABS: ADD MANUAL DIFF? NO
[2016-12-01] MEDS: Pantoprazole 40 mg EC Tab PO SCH (06:51)
[2016-12-01 07:10] LABS: BASO # 0.01 K/mm3 (0.0-2.0); BASO % 0.1 % (0.0-3.0); EOS % 0.1 % (1.5-5.0); GRAN # 7.41 (1.4-6.5); GRAN % 81.5 % (50.0-68.0); HEMATOCRIT 48.2 % (42.0-52.0); LYMPH # 0.7 (1.2-3.4); LYMPH % 7.5 % (22.0-35.0); MEAN CELL VOLUME 94.5 fL (80.0-105.0); MEAN CORPUSCULAR HEMOGLOBIN 32.5 pg (25.0-35.0); MEAN CORPUSCULAR HGB CONC 34.4 g/dl (31.0-37.0); MEAN PLATELET VOLUME 10.9 fl (7.0-11.0); MONO % 10.8 % (1.0-6.0); PLATELET COUNT 150 10^3/uL (120.0-450.0); RED CELL DISTRIBUTION WIDTH 13.3 % (11.5-14.5); WHITE BLOOD COUNT 9.1 10^3/ul (4.5-11.0)
[2016-12-01 08:43] LABS: ALB/GLOB RATIO 1.1 (1.1-1.8); ALKALINE PHOSPHATASE 78 U/L (38-133); ALT/SGPT 77 U/L (7-56); AST/SGOT 36 U/L (15-59); BILIRUBIN,TOTAL 1.7 mg/dL (0.2-1.3); BLOOD UREA NITROGEN 18 mg/dL (7-21); CALCIUM 9.3 mg/dL (8.4-10.5); CARBON DIOXIDE 29 mmol/L (21-33); CHLORIDE 98 mmol/L (98-107); GFR AFRICAN-AMERICAN > 60; GLUCOSE,RANDOM 201 mg/dL (70-110); SODIUM 136 mmol/L (132-148); TOTAL PROTEIN 6.2 g/dL (5.8-8.3)
--- NOTE | 2016-12-01 11:03 | CP.PCM.PN ---
<Cait Daniels - Last Filed: 12/01/16 11:08> Subjective - Date & Time of Evaluation Date of Evaluation: 12/01/16 Time of Evaluation: 11:02 - Subjective Subjective: HOSPITALIST PROGRESS NOTE Pt is seen and examined at bedside. Patient sitting up and eating breakfast. Later, pt is seen to be walking the hallway with aid of physical therapist. Patient denies having any CP, SOB, abd pain N/V/D/C. Objective - Vital Signs/Intake and Output Vital Signs (last 24 hours): Temp Pulse Resp BP Pulse Ox 98.2 F 75 20 139/99 H 93 L 11/30/16 18:00 11/30/16 18:00 11/30/16 18:00 11/30/16 18:00 11/30/16 06:00 Intake and Output: 12/01/16 12/01/16 06:59 18:59 Intake Total 0 Output Total 6 Balance -6 - Medications Medications: Current Medications Amlodipine Besylate (Norvasc) 5 mg PO DAILY [facility] Last Admin: 11/30/16 14:40 Dose: 5 mg Azithromycin (Zithromax) 500 mg PO DAILY [facility] PRN Reason: Protocol Clonidine HCl (Catapres) 0.3 mg PO TID PRN PRN Reason: Systolic Blood Pressure Last Admin: 11/30/16 05:53 Dose: 0.3 mg Clonidine HCl (Catapres) 0.1 mg PO TID [facility] Last Admin: 11/30/16 17:23 Dose: 0.1 mg Folic Acid (Folic Acid) 1 mg PO DAILY [facility] Levalbuterol HCl (Xopenex) 1.25 mg IH TIDRESP [facility] Last Admin: 11/30/16 19:46 Dose: 1.25 mg Levetiracetam (Keppra) 500 mg PO BID [facility] Last Admin: 11/30/16 17:23 Dose: 500 mg Lorazepam (Ativan) 0.5 mg PO BID [facility] Last Admin: 11/30/16 17:24 Dose: 0.5 mg Lorazepam (Ativan) 1 mg PO HS [facility] Last Admin: 11/30/16 21:38 Dose: 1 mg Lorazepam (Ativan) 1 mg IV Q4H PRN PRN Reason: Restlessness Methylprednisolone (Solu-Medrol) 20 mg IVP Q12H [facility] Last Admin: 11/30/16 21:37 Dose: 20 mg Metoprolol Tartrate (Lopressor) 50 mg PO BID [facility] Last Admin: 11/30/16 17:24 Dose: 50 mg Multivitamins/Minerals (Therapeutic-M Tab) 1 tab PO DAILY [facility] Nicotine (Nicoderm Cq) 1 patch TD DAILY PRN PRN Reason: withdrawal sxs Last Admin: 11/28/16 09:55 Dose: 1 patch Pantoprazole Sodium (Protonix Ec Tab) 40 mg PO 0630 [facility] Last Admin: 12/01/16 06:51 Dose: 40 mg Thiamine HCl (Vitamin B1 Tab) 100 mg PO DAILY [facility] - Labs Labs: 12/01/16 06:30 12/01/16 07:00 PT 12.8 Seconds (9.9-11.8) H 11/26/16 18:29 INR 1.19 (0.93-1.08) H 11/26/16 18:29 APTT 33.8 Seconds (23.7-30.8) H 11/26/16 18:29 - Constitutional Appears: Non-toxic, No Acute Distress - Head Exam Head Exam: ATRAUMATIC - Eye Exam Eye Exam: EOMI - ENT Exam ENT Exam: Mucous Membranes Moist - Respiratory Exam Respiratory Exam: Clear to Ausculation Bilateral. absent: Rales, Rhonchi, Wheezes - Cardiovascular Exam Cardiovascular Exam: REGULAR RHYTHM, +S1, +S2. absent: Gallop, Rubs, Murmur - GI/Abdominal Exam GI & Abdominal Exam: Soft, Normal Bowel Sounds. absent: Distended, Firm, Guarding, Rigid, Tenderness - Extremities Exam Extremities Exam: absent: Pedal Edema, Tenderness - Neurological Exam Neurological Exam: Alert, Awake, Oriented x3 - Psychiatric Exam Psychiatric exam: Normal Affect, Normal Mood - Skin Skin Exam: Dry, Intact, Normal Color, Warm Assessment and Plan - Assessment and Plan (Free Text) Assessment: 61 year old male with past medical history of seizure disorder noncompliant with medications, ETOH abuse, chornic a fib, history of subdural hematoma, HTN, CVA, CAD with 2 MIs is admitted after experiencing a witnessed seizure. CT of head is negative for acute changes but shows multiple areas of encephalomalacia. Lumbar spine shows no fracture but degenerative disc disease at L3-L4. Foot xray is negative. Hip xray was negative. 1. Fall: Head CT - multiple areas of encephalomalacia - stable compared to previous study (please see full report) Lumbar spine x-ray- negative for fractures Hip pelvis xray - unremarkable betadine applied to head 2.Seizure: Keppra [address] - multiple areas of encephalomalacia - stable compared to previous study (please see full report) Neurologist, Dr. Angelia Montes, consulted appreciate recs EEG - abnormal suggestive of seizures - f/u neurology recs Seizure precautions 3. Electrolyte Abnormalities: Hypokalemia and hyponatremia resolved 4. Alcohol Withdrawal: Serum alcohol-97 Cont Ativan 2 mg IV q2 prn and Ativan 1 mg PO qid PO multivitamin, thiamine and folic acid F/u Psych consult - Dr Lees - cont to monitor mental status 5. COPD exacerbation Non productive cough this am Azithromax PO 500 mg NC O2 supplementation prn Solumedrol 20 mg IV Q12h O2 saturation 85% after walking around without oxygen with physical therapy. 6. Rhabdo - resolved CPK 2754--> 1342--> 323--> 138 this am 7. SIRS: resolved Cont to monitor CXR -negative Procalcitonin is .57 8. Coagulopathy: Platelet count stable, will avoid heparin - 133 this am H/H stable Iron studies Iron, 125, Ferritin 572, TIBC 269, Transferrin 197 F/u folate and vit B12 pending 9. Elevated Liver Function tests/transaminitis: Resolving T-bili 1.9 AST/ALT improving - AST 50 , ALT 71 this AM Abdominal u/s shows echogenic liver parenchymal disease vs. fatty liver disease 10. Chronic A fib. No on any anticoagulation due to Hx of TBI with subdural hematoma CHADs2 score of 3. HAS-BLED score of 4 so 8.9% risk of bleeding in this patient F/u Echo - Normal EF F/u Cardiology Dr Lara recs 11. Left foot pain Xray of foot is negative 12. Prophylactic Measures: GI: Protonix 40 mg po qd DVT: SCDs Awaiting TCU eval for placement Case and plan was seen, reviewed, and discussed in detail with Dr Garcia. <Chauncey Garcia - Last Filed: 12/01/16 14:46> Objective - Vital Signs/Intake and Output Vital Signs (last 24 hours): Temp Pulse Resp BP Pulse Ox 98.2 F 83 20 143/96 H 93 L 11/30/16 18:00 12/01/16 14:13 11/30/16 18:00 12/01/16 14:13 11/30/16 06:00 Intake and Output: 12/01/16 12/01/16 06:59 18:59 Intake Total 0 Output Total 6 Balance -6 - Medications Medications: Current Medications Amlodipine Besylate (Norvasc) 10 mg PO DAILY [facility] Azithromycin (Zithromax) 500 mg PO DAILY [facility] PRN Reason: Protocol Clonidine HCl (Catapres) 0.1 mg PO TID [facility] Last Admin: 12/01/16 14:12 Dose: 0.1 mg Folic Acid (Folic Acid) 1 mg PO DAILY [facility] Levalbuterol HCl (Xopenex) 1.25 mg IH TIDRESP [facility] Last Admin: 12/01/16 11:18 Dose: 1.25 mg Levetiracetam (Keppra) 500 mg PO BID [facility] Last Admin: 12/01/16 14:12 Dose: 500 mg Lorazepam (Ativan) 0.5 mg PO 1000,2200 [facility] Methylprednisolone (Solu-Medrol) 20 mg IVP Q12H [facility] Last Admin: 12/01/16 14:14 Dose: 20 mg Metoprolol Tartrate (Lopressor) 50 mg PO BID [facility] Last Admin: 12/01/16 14:13 Dose: 50 mg Multivitamins/Minerals (Therapeutic-M Tab) 1 tab PO DAILY [facility] Nicotine (Nicoderm Cq) 1 patch TD DAILY PRN PRN Reason: withdrawal sxs Last Admin: 11/28/16 09:55 Dose: 1 patch Pantoprazole Sodium (Protonix Ec Tab) 40 mg PO 0630 [facility] Last Admin: 12/01/16 06:51 Dose: 40 mg Thiamine HCl (Vitamin B1 Tab) 100 mg PO DAILY [facility] Zaleplon (Sonata) 10 mg PO HS PRN PRN Reason: Insomnia - Labs Labs: 12/01/16 06:30 12/01/16 07:00 PT 12.8 Seconds (9.9-11.8) H 11/26/16 18:29 INR 1.19 (0.93-1.08) H 11/26/16 18:29 APTT 33.8 Seconds (23.7-30.8) H 11/26/16 18:29 Attending/Attestation - Attestation I have personally seen and examined this patient.: Yes I have fully participated in the care of the patient.: Yes I have reviewed all pertinent clinical information, including history, physical exam and plan: Yes Notes (Text): 12/01/16 14:36 attending note; I have seen and examined patient at bedside with resident. This is a 61 year old male with history of seizure disorder, alcohol abuse, chronic atrial fibrillation, history of SDH, HTN, CVA, CAD who got admitted for evaluation of witnessed seizure and fall. He had head trauma and low back pain. CT head revealed encephalomalacia. L/S spine xray showed DJD of L3-L4. EEG abnormal. started on keppra. Neuro consult with Dr. Montes appreciated. Patient is on ativan. Patient is awake. worked with PT today. Judgment and insight is poor at this time due to withdrawal. COPD; improved significantly. Taper steroids. He has transaminitis Secondary to alcohol abuse. Hep panel is negative. Liver ultrasound revealed parenchymal disease vs fatty infiltration. Thrombocytopenia is improving. He has CHADS2 score of 3. HAS-BLED score of 4 therefore high risk of bleeding. not a candidate for long-term anti-coagulation secondary to noncompliance multiple falls, continuous al abuse. Continue lopressor, norvasc,and clonidine. Physical therapy evaluation appreciated. TCU versus [facility] recommended. Case discussed with bottle caser for discharge planning. Upon discharge patient will follow up with Dr Curtis/ PMD of choice.
[2016-12-01] MEDS: Levalbuterol 1.25 MG/3 ML Inhal Soln UD IH SCH ×3 (11:18→21:40)
--- NOTE | 2016-12-01 12:40 | PN ---
DATE: 12/01/2016 The patient is a 61-year-old male currently being treated for alcohol withdrawal. He has a history o f traumatic brain disease. He has a history of recent seizures. The patient has a history of alcoho l abuse disorder for many years. Last night, I reviewed nurse's notes and patient states he slept we ll through the night. The patient has had no seizures in the last 72 hours. He has a history of rec ent falls. He has resolved hypokalemia and hyponatremia. He has COPD exacerbation, resolved rhabdom yolysis, chronic AFib, elevated liver functions. PHYSICAL EXAMINATION: The patient's mental status, awake, alert, coherent, apathetic When asked if h e stopped drinking, he said maybe yes, maybe no. Judgment and insight is impaired even though he is oriented x 3. The patient denies psychotic symptomatology or suicidal ideation. CURRENT MEDICATIONS: Include p.r.n. Ativan 1 mg IV q.4 hours p.r.n., Ativan 0.5 b.i.d. and at bedtim e, Catapres p.r.n. and t.i.d., folate, Keppra, Lopressor, Nicoderm, Norvasc, Protonix, Solu-Medrol q. 12 hours, vitamin B1 and multivitamins, Xopenex and Zithromax. LABORATORY DATA: His white count is 9100, hemoglobin is 16.6, platelet count is 150,000. His metabo lic profile is normal except for a random glucose of 201. Total bilirubin of 1.7, ALT of 77. VITAL SIGNS: Blood pressure of 133/99, pulse 75, respirations 18 per minute and afebrile. IMPRESSION: Alcohol withdrawal, resolving traumatic brain disease from fall 7 years ago, and multipl e areas of encephalomalacia of the brain. He has a seizure disorder. The patient has noncompliant a lcohol abuse disorder. The patient is on intravenous Solu-Medrol. He has chronic obstructive pulmon dharmesh disease exacerbation, chronic atrial fibrillation. PLAN: We will reduce lorazepam to just 0.5 mg in a.m. and at bedtime and will leave an order for p.r .n. Sonata for sleep and we will discontinue IV lorazepam. We will continue to monitor mental status . Aneesh Lees MD cc: [id number] TT: 12/01/2016 12:39:07 Confirmation # [id number] Dictation # [id number]
[2016-12-01] MEDS: MethylPREDNISolone 40 mg Vial IVP SCH ×2 (14:14→21:03)
[2016-12-02] MEDS: Pantoprazole 40 mg EC Tab PO SCH (05:33)
[2016-12-02 06:49] LABS: ADD MANUAL DIFF? NO
[2016-12-02 06:52] LABS: BASO # 0.01 K/mm3 (0.0-2.0); BASO % 0.1 % (0.0-3.0); GRAN # 7.11 (1.4-6.5); GRAN % 78.5 % (50.0-68.0); HEMATOCRIT 50.5 % (42.0-52.0); LYMPH # 0.7 (1.2-3.4); LYMPH % 7.3 % (22.0-35.0); MEAN CELL VOLUME 94.4 fL (80.0-105.0); MEAN CORPUSCULAR HEMOGLOBIN 32.7 pg (25.0-35.0); MEAN CORPUSCULAR HGB CONC 34.7 g/dl (31.0-37.0); MEAN PLATELET VOLUME 10.8 fl (7.0-11.0); MONO # 1.3 (0.1-0.6); MONO % 14.1 % (1.0-6.0); PLATELET COUNT 149 10^3/uL (120.0-450.0); RED CELL DISTRIBUTION WIDTH 13.3 % (11.5-14.5); WHITE BLOOD COUNT 9.1 10^3/ul (4.5-11.0)
[2016-12-02 07:05] LABS: ALB/GLOB RATIO 1.1 (1.1-1.8); ALKALINE PHOSPHATASE 71 U/L (38-133); ALT/SGPT 83 U/L (7-56); AST/SGOT 40 U/L (15-59); BILIRUBIN,TOTAL 1.8 mg/dL (0.2-1.3); BLOOD UREA NITROGEN 21 mg/dL (7-21); CALCIUM 9.6 mg/dL (8.4-10.5); CARBON DIOXIDE 29 mmol/L (21-33); CHLORIDE 99 mmol/L (98-107); GFR AFRICAN-AMERICAN > 60; GLUCOSE,RANDOM 129 mg/dL (70-110); POTASSIUM 4.8 mmol/L (3.6-5.0); SODIUM 136 mmol/L (132-148)
[2016-12-02] MEDS: Levalbuterol 1.25 MG/3 ML Inhal Soln UD IH SCH ×2 (07:26→13:41)
[2016-12-02] MEDS: MethylPREDNISolone 40 mg Vial IVP SCH (09:55)
[2016-12-02] MEDS ORDERED: Multivitamin With Minerals Tab PO SCH (10:00)
--- NOTE | 2016-12-02 10:13 | CP.PCM.PN ---
<Cait Daniels - Last Filed: 12/02/16 10:05> Subjective - Date & Time of Evaluation Date of Evaluation: 12/02/16 Time of Evaluation: 10:06 - Subjective Subjective: HOSPITALIST PROGRESS NOTE Pt seen and examined at bedside. No acute events overnight. Patient denies having any CP, SOB, SHULTZ, abd pain, N/V/D/C. Patient is tolerating diet. He is A &Ox3. Objective - Vital Signs/Intake and Output Vital Signs (last 24 hours): Temp Pulse Resp BP Pulse Ox 98.6 F 73 20 155/104 H 99 12/02/16 07:30 12/02/16 07:30 12/02/16 07:30 12/02/16 07:30 12/02/16 07:30 Intake and Output: 12/02/16 12/02/16 06:59 18:59 Intake Total 780 Output Total 3150 Balance -2370 - Medications Medications: Current Medications Amlodipine Besylate (Norvasc) 10 mg PO DAILY [facility] Azithromycin (Zithromax) 500 mg PO DAILY [facility] PRN Reason: Protocol Clonidine HCl (Catapres) 0.1 mg PO TID [facility] Last Admin: 12/01/16 19:06 Dose: 0.1 mg Folic Acid (Folic Acid) 1 mg PO DAILY [facility] Levalbuterol HCl (Xopenex) 1.25 mg IH TIDRESP [facility] Last Admin: 12/02/16 07:26 Dose: 1.25 mg Levetiracetam (Keppra) 500 mg PO BID [facility] Last Admin: 12/01/16 19:06 Dose: 500 mg Lorazepam (Ativan) 0.5 mg PO 1000,2200 [facility] Last Admin: 12/01/16 22:26 Dose: 0.5 mg Methylprednisolone (Solu-Medrol) 20 mg IVP Q12H [facility] Last Admin: 12/01/16 21:03 Dose: 20 mg Metoprolol Tartrate (Lopressor) 50 mg PO BID [facility] Last Admin: 12/01/16 19:07 Dose: 50 mg Multivitamins/Minerals (Therapeutic-M Tab) 1 tab PO DAILY [facility] Nicotine (Nicoderm Cq) 1 patch TD DAILY PRN PRN Reason: withdrawal sxs Last Admin: 11/28/16 09:55 Dose: 1 patch Pantoprazole Sodium (Protonix Ec Tab) 40 mg PO 0630 [facility] Last Admin: 12/02/16 05:33 Dose: 40 mg Thiamine HCl (Vitamin B1 Tab) 100 mg PO DAILY [facility] Zaleplon (Sonata) 10 mg PO HS PRN PRN Reason: Insomnia - Labs Labs: 12/02/16 06:15 12/02/16 06:15 PT 12.8 Seconds (9.9-11.8) H 11/26/16 18:29 INR 1.19 (0.93-1.08) H 11/26/16 18:29 APTT 33.8 Seconds (23.7-30.8) H 11/26/16 18:29 - Constitutional Appears: Non-toxic, No Acute Distress - Head Exam Head Exam: ATRAUMATIC - ENT Exam ENT Exam: Mucous Membranes Moist - Respiratory Exam Respiratory Exam: Clear to Ausculation Bilateral, NORMAL BREATHING PATTERN. absent: Rales, Rhonchi, Wheezes - GI/Abdominal Exam GI & Abdominal Exam: Soft, Normal Bowel Sounds. absent: Distended, Firm, Tenderness - Neurological Exam Neurological Exam: Alert, Awake, Oriented x3 - Psychiatric Exam Psychiatric exam: Normal Affect, Normal Mood - Skin Skin Exam: Dry, Intact, Normal Color Assessment and Plan - Assessment and Plan (Free Text) Assessment: 61 year old male with past medical history of seizure disorder noncompliant with medications, ETOH abuse, chornic a fib, history of subdural hematoma, HTN, CVA, CAD with 2 MIs is admitted after experiencing a witnessed seizure. CT of head is negative for acute changes but shows multiple areas of encephalomalacia. Lumbar spine shows no fracture but degenerative disc disease at L3-L4. Foot xray is negative. Hip xray was negative. 1. Fall: Head CT - multiple areas of encephalomalacia - stable compared to previous study (please see full report) Lumbar spine x-ray- negative for fractures Hip pelvis xray - unremarkable betadine applied to head 2.Seizure: Keppra [address] - multiple areas of encephalomalacia - stable compared to previous study (please see full report) Neurologist, Dr. Angelia Montes, consulted appreciate recs EEG - abnormal suggestive of seizures - f/u neurology recs Seizure precautions 3. Electrolyte Abnormalities: Hypokalemia and hyponatremia resolved 4. Alcohol Withdrawal: Serum alcohol-97 Cont Ativan 2 mg IV q2 prn and Ativan 1 mg PO qid PO multivitamin, thiamine and folic acid F/u Psych consult - Dr Lees - cont to monitor mental status 5. COPD exacerbation Non productive cough this am Azithromax PO 500 mg NC O2 supplementation prn Prednisone 20 mg PO QD O2 saturation 85% after walking around without oxygen with physical therapy. 6. Rhabdo - resolved CPK WNL 7. SIRS: resolved Cont to monitor CXR -negative Procalcitonin is .57 8. Coagulopathy: Platelet count stable, will avoid heparin - 133 this am H/H stable Iron studies WNL F/u folate and vit B12 WNL 9. Elevated Liver Function tests/transaminitis: Resolving T-bili 1.8 AST/ALT improving - AST 40 , ALT 83 Abdominal u/s shows echogenic liver parenchymal disease vs. fatty liver disease 10. Chronic A fib. No on any anticoagulation due to Hx of TBI with subdural hematoma CHADs2 score of 3. HAS-BLED score of 4 so 8.9% risk of bleeding in this patient F/u Echo - Normal EF F/u Cardiology Dr Marco maya 11. HTN Norvasc 10 mg PO QD, Catapres .1 mg PO TID, Lopressor 50 mg PO BID 12. Left foot pain Xray of foot is negative 13. Prophylactic Measures: GI: Protonix 40 mg po qd DVT: SCDs Discussed with daughter about [facility] placement today. Daughter was given list of SARs yesterday ad will decide today as to which is the best option for her father. Case and plan was seen, reviewed, and discussed in detail with Dr Garcia. <Chauncey Garcia - Last Filed: 12/02/16 14:57> Objective - Vital Signs/Intake and Output Vital Signs (last 24 hours): Temp Pulse Resp BP Pulse Ox 98.6 F 73 20 155/104 H 99 12/02/16 07:30 12/02/16 10:29 12/02/16 07:30 12/02/16 10:29 12/02/16 07:30 Intake and Output: 12/02/16 12/02/16 06:59 18:59 Intake Total 780 Output Total 3150 Balance -2370 - Medications Medications: Current Medications Amlodipine Besylate (Norvasc) 10 mg PO DAILY [facility] Last Admin: 12/02/16 10:12 Dose: 10 mg Azithromycin (Zithromax) 500 mg PO DAILY [facility] PRN Reason: Protocol Last Admin: 12/02/16 10:12 Dose: 500 mg Clonidine HCl (Catapres) 0.2 mg PO TID [facility] Folic Acid (Folic Acid) 1 mg PO DAILY [facility] Last Admin: 12/02/16 10:03 Dose: 1 mg Levalbuterol HCl (Xopenex) 1.25 mg IH TIDRESP [facility] Last Admin: 12/02/16 13:41 Dose: 1.25 mg Levetiracetam (Keppra) 500 mg PO BID [facility] Last Admin: 12/02/16 10:12 Dose: 500 mg Lisinopril (Zestril) 10 mg PO DAILY [facility] Lorazepam (Ativan) 0.5 mg PO 1000,2200 [facility] Last Admin: 12/02/16 10:13 Dose: 0.5 mg Metoprolol Tartrate (Lopressor) 50 mg PO BID [facility] Last Admin: 12/02/16 10:29 Dose: 50 mg Multivitamins/Minerals (Therapeutic-M Tab) 1 tab PO DAILY [facility] Last Admin: 12/02/16 10:29 Dose: 1 tab Nicotine (Nicoderm Cq) 1 patch TD DAILY PRN PRN Reason: withdrawal sxs Last Admin: 11/28/16 09:55 Dose: 1 patch Pantoprazole Sodium (Protonix Ec Tab) 40 mg PO 0630 [facility] Last Admin: 12/02/16 05:33 Dose: 40 mg Prednisone (Prednisone Tab) 20 mg PO DAILY [facility] Thiamine HCl (Vitamin B1 Tab) 100 mg PO DAILY [facility] Last Admin: 12/02/16 10:29 Dose: 100 mg Zaleplon (Sonata) 10 mg PO HS PRN PRN Reason: Insomnia - Labs Labs: 12/02/16 06:15 12/02/16 06:15 PT 12.8 Seconds (9.9-11.8) H 11/26/16 18:29 INR 1.19 (0.93-1.08) H 11/26/16 18:29 APTT 33.8 Seconds (23.7-30.8) H 11/26/16 18:29 Attending/Attestation - Attestation I have personally seen and examined this patient.: Yes I have fully participated in the care of the patient.: Yes I have reviewed all pertinent clinical information, including history, physical exam and plan: Yes Notes (Text): 12/02/16 14:55 attending note; I have seen and examined patient at bedside with resident. This is a 61 year old male with history of seizure disorder, alcohol abuse, chronic atrial fibrillation, history of SDH, HTN, CVA, CAD who got admitted for evaluation of witnessed seizure and fall. He had head trauma and low back pain. CT head revealed encephalomalacia. L/S spine xray showed DJD of L3-L4. EEG abnormal. started on keppra. Neuro consult with Dr. Montes appreciated. Patient is on ativan. Patient is awake. Mental status improved. worked with PT today. COPD; improved significantly. Taper steroids. He has transaminitis Secondary to alcohol abuse. Hep panel is negative. Liver ultrasound revealed parenchymal disease vs fatty infiltration. Thrombocytopenia is improving. He has CHADS2 score of 3. HAS-BLED score of 4 therefore high risk of bleeding. not a candidate for long-term anti-coagulation secondary to noncompliance multiple falls, continuous al abuse. Continue lopressor, norvasc,and clonidine. Physical therapy evaluation appreciated. TCU versus [facility] recommended. Case discussed with rn case management for discharge planning. pending [facility] placement. Upon discharge patient will follow up with Dr Curtis/ PMD of choice.
--- NOTE | 2016-12-02 13:06 | PN ---
DATE: 12/02/2016 FOLLOWUP This is a 61-year-old male with past medical history of CVA 2 years ago with traumatic brain injury 7 years ago. The patient has a history of seizure, alcohol dependence, and withdrawal, also chronic d ementia. CAT scan of the head was done, which was reported negative. The patient has traumatic brain injury. He drank 3-4 large cans of beer. PHYSICAL EXAMINATION: HEENT: Normocephalic, atraumatic. NECK: Supple. NEUROLOGIC: Awake, oriented to self and place. No aphasia. Cranial nerves II-XII were tested. Pup ils reactive. Spontaneous movement of the extremities noted. Deep tendon reflexes 1+. Both plantar s are downgoing. Sensory appears intact. Cerebellar gait deferred. IMPRESSION: Seizure, and the patient is on seizure medication. PLAN: Continue present management. We will follow up. Wong Montes MD cc: [id number] TT: 12/02/2016 13:05:57 Confirmation # [id number] Dictation # [id number]
[2016-12-02 17:44] VITALS: TEMP 97.8; O2SAT 95
[2016-12-02 18:20] VITALS: BP 99/70; PULSE 76; RESP 18
--- NOTE | 2016-12-03 13:40 | CP.PCM.DIS ---
<Cait Daniels - Last Filed: 12/03/16 13:37> Provider - Provider Date of Admission: 11/26/16 21:01 Attending physician: Chauncey Garcia MD Primary care physician: NO PRIMARY CARE PROVIDER Consults: Cardiology: Dr. Lara Psych: Dr. Lees Neuro: Dr. Montes Time Spent in preparation of Discharge (in minutes): 45 Diagnosis - Discharge Diagnosis (1) Rhabdomyolysis Status: Acute (2) Coagulopathy Status: Chronic (3) Transaminitis Status: Acute (4) Chronic a-fib Status: Chronic (5) COPD (chronic obstructive pulmonary disease) Status: Chronic (6) HTN (hypertension) Status: Chronic (7) Dementia Status: Acute (8) Seizure disorder Status: Acute (9) Alcohol abuse Status: Chronic Hospital Course - Lab Results Lab Results: Most Recent Lab Values WBC 9.1 10^3/ul (4.5-11.0) 12/02/16 06:15 RBC 5.35 10^6/uL (3.5-6.1) 12/02/16 06:15 Hgb 17.5 gm/dL (14.0-18.0) 12/02/16 06:15 Hct 50.5 % (42.0-52.0) 12/02/16 06:15 MCV 94.4 fL (80.0-105.0) 12/02/16 06:15 MCH 32.7 pg (25.0-35.0) 12/02/16 06:15 MCHC 34.7 g/dl (31.0-37.0) 12/02/16 06:15 RDW 13.3 % (11.5-14.5) 12/02/16 06:15 Plt Count 149 10^3/uL (120.0-450.0) 12/02/16 06:15 MPV 10.8 fl (7.0-11.0) 12/02/16 06:15 Gran % 78.5 % (50.0-68.0) H 12/02/16 06:15 Lymph % (Auto) 7.3 % (22.0-35.0) L 12/02/16 06:15 Starr % (Auto) 14.1 % (1.0-6.0) H 12/02/16 06:15 Eos % (Auto) 0.0 % (1.5-5.0) L 12/02/16 06:15 Baso % (Auto) 0.1 % (0.0-3.0) 12/02/16 06:15 Gran # 7.11 (1.4-6.5) H 12/02/16 06:15 Lymph # 0.7 (1.2-3.4) L 12/02/16 06:15 Starr # 1.3 (0.1-0.6) H 12/02/16 06:15 Eos # 0.0 (0.0-0.7) 12/02/16 06:15 Baso # 0.01 K/mm3 (0.0-2.0) 12/02/16 06:15 Neutrophils % (Manual) 85 % (50.0-70.0) H 11/26/16 17:49 Band Neutrophils % 6 % (0-2) H 11/26/16 17:49 Lymphocytes % (Manual) 8 % (22.0-35.0) L 11/26/16 17:49 Monocytes % (Manual) 1 % (1.0-6.0) 11/26/16 17:49 Platelet Evaluation Low (NORMAL) 11/26/16 17:49 PT 12.8 Seconds (9.9-11.8) H 11/26/16 18:29 INR 1.19 (0.93-1.08) H 11/26/16 18:29 APTT 33.8 Seconds (23.7-30.8) H 11/26/16 18:29 pO2 50 mm/Hg (30-55) 11/27/16 00:00 VBG pH 7.43 (7.32-7.43) 11/27/16 00:00 VBG pCO2 32.0 (40-60) L 11/27/16 00:00 VBG HCO3 21.2 mmol/l (21-28) 11/27/16 00:00 VBG Total CO2 22.2 mmol.L (22-28) 11/27/16 00:00 VBG O2 Sat (Calc) 89.5 % (40-65) H 11/27/16 00:00 VBG Base Excess -2.3 mmol/L (0.0-2.0) L 11/27/16 00:00 VBG Potassium 3.6 mmol/L (3.6-5.2) 11/27/16 00:00 Sodium 129.0 mmol/L (132-148) L 11/27/16 00:00 Chloride 98.0 mmol/L (98-107) 11/27/16 00:00 Glucose 64 mg/dl (75-110) L 11/27/16 00:00 Lactate 1.6 mmol/L (0.7-2.1) 11/27/16 00:00 FiO2 21.0 % 11/27/16 00:00 Sodium 136 mmol/L (132-148) 12/02/16 06:15 Potassium 4.8 mmol/L (3.6-5.0) 12/02/16 06:15 Chloride 99 mmol/L (98-107) 12/02/16 06:15 Carbon Dioxide 29 mmol/L (21-33) 12/02/16 06:15 Anion Gap 13 (10-20) 12/02/16 06:15 BUN 21 mg/dL (7-21) 12/02/16 06:15 Creatinine 0.8 mg/dL (0.5-1.4) 12/02/16 06:15 Est GFR ( Amer) > 60 12/02/16 06:15 Est GFR (Non-Af Amer) > 60 12/02/16 06:15 POC Glucose (mg/dL) 140 mg/dL (65-110) H 11/28/16 08:42 Random Glucose 129 mg/dL (70-110) H 12/02/16 06:15 Serum Osmolality 282 mosm/kg (271-296) 11/27/16 06:00 Calcium 9.6 mg/dL (8.4-10.5) 12/02/16 06:15 Phosphorus 3.0 mg/dL (2.5-4.5) 11/27/16 05:00 Magnesium 2.3 mg/dL (1.7-2.2) H 11/27/16 05:00 Iron 125 ug/dL (45-180) 11/27/16 05:00 TIBC 269 ug/dL (261-462) 11/27/16 05:00 % Saturation 47 % (20-55) 11/27/16 05:00 Transferrin 197.11 mg/dL (206-381) L 11/27/16 05:00 Ferritin 572.0 ng/mL 11/27/16 05:00 Total Bilirubin 1.8 mg/dL (0.2-1.3) H 12/02/16 06:15 AST 40 U/L (15-59) 12/02/16 06:15 ALT 83 U/L (7-56) H 12/02/16 06:15 Alkaline Phosphatase 71 U/L (38-133) 12/02/16 06:15 Total Creatine Kinase 45 U/L (35-230) 12/02/16 06:15 CK-MB (CK-2) 1.66 NG/ML (0.0-3.6) 11/29/16 07:10 CK-MB (CK-2) % 0.4 % (2.5-3.0) L 11/28/16 09:36 Total Protein 7.0 g/dL (5.8-8.3) 12/02/16 06:15 Albumin 3.6 g/dL (3.0-4.8) 12/02/16 06:15 Globulin 3.3 gm/dL 12/02/16 06:15 Albumin/Globulin Ratio 1.1 (1.1-1.8) 12/02/16 06:15 Vitamin B12 728 pg/mL (239-931) 11/30/16 06:30 Folate > 20.0 ng/mL 11/30/16 06:30 Procalcitonin 0.57 NG/ML (0.19-0.49) H 11/26/16 05:30 TSH 3rd Generation 0.56 mIU/mL (0.46-4.68) 11/29/16 07:10 Venous Blood Potassium 3.6 mmol/L (3.6-5.2) 11/27/16 00:00 Urine Opiates Screen Negative (NEGATIVE) 11/29/16 16:00 Urine Methadone Screen Negative (NEGATIVE) 11/29/16 16:00 Ur Barbiturates Screen Negative (NEGATIVE) 11/29/16 16:00 Levetiracetam <1.0 mcg/mL 11/26/16 18:29 Ur Phencyclidine Scrn Negative (NEGATIVE) 11/29/16 16:00 Ur Amphetamines Screen Negative (NEGATIVE) 11/29/16 16:00 U Benzodiazepines Scrn Negative (NEGATIVE) 11/29/16 16:00 U Oth Cocaine Metabols Negative (NEGATIVE) 11/29/16 16:00 U Cannabinoids Screen Positive (NEGATIVE) H 11/29/16 16:00 Alcohol, Quantitative 97 mg/dL (0-10) H 11/26/16 18:29 Hepatitis A IgM Ab Negative (NEGATIVE) 11/27/16 05:00 Hep Bs Antigen Negative (NEGATIVE) 11/27/16 05:00 Hep B Core IgM Ab Negative (NEGATIVE) 11/27/16 05:00 Hepatitis C Antibody Negative (NEGATIVE) 11/27/16 05:00 HIV-1 Ab Rapid Screen Non reactive (NON REAC) 11/27/16 05:00 - Hospital Course Hospital Course: HPI: Pt is a 61 year old male with a PMHx of 2 Myocardial infarctions several years ago, CVA (2 years ago), 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 Pt reports that he does not recall the seizure. According to the friend at bedside, the pt fell on his back and hit the top of his head. The pt reports that he does feel pain on the top of his head and in his lower back. According to the daughter, the pt has a history of seizures and is noncompliant with his medications. She reports that he does not follow up a primary care physician. The pt reports that he falls often but does not recall if he has seizures. The pt's friend who is staying with him reports that he saw him have a seizure yesterday during which he fell and hit his head. Pt also reports that he drinks 3-4 large cans of beer per day and he experiences shakes when he does not drink. Pt reports that he has a cough. Pt denies fever, chills, chest pain, shortness of breath, nausea, and vomiting. On admission head CT was negative for acute changes. Patient complained of back pain on admission but lumbar CT was negative. Neurology was consulted and recommended EEG to assess for seizure activity. EEG was done and showed irregular activity consistent with seizures. Patient had elevated CPK on admission due to seizure activity. Patient was given aggressive hydration and CPK level improved. Patient also had transaminitis on admission likely from the chronic ETOH use. Abd US showed an echogenic liver with parenchymal disease vs fatty liver. LFTs improved gradually through hospital stay. Patient was also placed on benzodiazapines for ETOH withdrawal. Patient's mental status returned to baseline and benzodiazepines were tapered down. After having an extensive discussion with patient's daughter and block and case maker, it was decided that patient needs to be sent to subacute rehab for further physical therapy. You have been discharged to subacute rehab. Follow up with primary care provider. Return to Local ER if symptoms worsen. Please see EMR for full details. - Date & Time of H&P Date of H&P: 12/03/16 Time of H&P: 13:40 Discharge Exam - Head Exam Head Exam: ATRAUMATIC - Eye Exam Eye Exam: EOMI - ENT Exam ENT Exam: Mucous Membranes Moist - Respiratory Exam Respiratory Exam: Clear to PA & Lateral, NORMAL BREATHING PATTERN. absent: Rales, Rhonchi, Wheezes - Cardiovascular Exam Cardiovascular Exam: REGULAR RHYTHM, RRR, +S1, +S2. absent: Diastolic murmur, Gallop, Rubs, Systolic Murmur - GI/Abdominal Exam GI & Abdominal Exam: Normal Bowel Sounds, Soft. absent: Distended, Firm, Rigid , Tenderness - Extremities Exam Additional comments: no edema or tenderness - Neurological Exam Neurological exam: Alert, Oriented x3 - Psychiatric Exam Psychiatric exam: Normal Affect, Normal Mood - Skin Skin Exam: Dry, Intact, Normal Color, Warm Discharge Plan - Discharge Medications Prescriptions: amLODIPine [Norvasc] 10 mg PO DAILY #30 tab Azithromycin [Zithromax] 500 mg PO DAILY #5 tab cloNIDine [Catapres] 0.2 mg PO TID #90 tab Folic Acid 1 mg PO DAILY #30 tab Levalbuterol [Xopenex] 1.25 mg IH TIDRESP #40 levETIRAcetam [Keppra] 500 mg PO BID #60 tab Lisinopril [Zestril] 10 mg PO DAILY #30 tab LORazepam [Ativan] 0.5 mg PO 1000,2200 #10 tab Metoprolol Tartrate [Lopressor] 50 mg PO BID #60 tab Multimineral/Multivitamin [Therapeutic-M Tab] 1 tab PO DAILY #30 tab Nicotine 14 mg/24 hr [Nicoderm CQ] 1 patch TD DAILY PRN #30 patch PRN Reason: withdrawal sxs Pantoprazole [Protonix EC Tab] 40 mg PO 0630 #30 ect predniSONE [predniSONE Tab] 20 mg PO DAILY #5 tab Zaleplon [Sonata] 10 mg PO HS PRN #30 cap PRN Reason: Insomnia - Follow Up Plan Condition: FAIR Disposition: TRANSF TO SNF Instructions: Pneumococcal Vaccine for Adults (DC), Dementia (GEN), Nonepileptic Seizures (DC), Alcohol Intoxication (DC), Abuse of Alcohol (DC), Alcohol Withdrawal (DC) Additional Instructions: You have been discharged to subacute rehab. Follow up with primary care provider. Return to Local ER if symptoms worsen. Referrals: PCP,NO [Primary Care Provider] - <Chauncey Garcia - Last Filed: 12/03/16 16:00> Provider - Provider Date of Admission: 11/26/16 21:01 Attending physician: Chauncey Garcia MD Primary care physician: NO PRIMARY CARE PROVIDER Hospital Course - Lab Results Lab Results: Most Recent Lab Values WBC 9.1 10^3/ul (4.5-11.0) 12/02/16 06:15 RBC 5.35 10^6/uL (3.5-6.1) 12/02/16 06:15 Hgb 17.5 gm/dL (14.0-18.0) 12/02/16 06:15 Hct 50.5 % (42.0-52.0) 12/02/16 06:15 MCV 94.4 fL (80.0-105.0) 12/02/16 06:15 MCH 32.7 pg (25.0-35.0) 12/02/16 06:15 MCHC 34.7 g/dl (31.0-37.0) 12/02/16 06:15 RDW 13.3 % (11.5-14.5) 12/02/16 06:15 Plt Count 149 10^3/uL (120.0-450.0) 12/02/16 06:15 MPV 10.8 fl (7.0-11.0) 12/02/16 06:15 Gran % 78.5 % (50.0-68.0) H 12/02/16 06:15 Lymph % (Auto) 7.3 % (22.0-35.0) L 12/02/16 06:15 Starr % (Auto) 14.1 % (1.0-6.0) H 12/02/16 06:15 Eos % (Auto) 0.0 % (1.5-5.0) L 12/02/16 06:15 Baso % (Auto) 0.1 % (0.0-3.0) 12/02/16 06:15 Gran # 7.11 (1.4-6.5) H 12/02/16 06:15 Lymph # 0.7 (1.2-3.4) L 12/02/16 06:15 Starr # 1.3 (0.1-0.6) H 12/02/16 06:15 Eos # 0.0 (0.0-0.7) 12/02/16 06:15 Baso # 0.01 K/mm3 (0.0-2.0) 12/02/16 06:15 Neutrophils % (Manual) 85 % (50.0-70.0) H 11/26/16 17:49 Band Neutrophils % 6 % (0-2) H 11/26/16 17:49 Lymphocytes % (Manual) 8 % (22.0-35.0) L 11/26/16 17:49 Monocytes % (Manual) 1 % (1.0-6.0) 11/26/16 17:49 Platelet Evaluation Low (NORMAL) 11/26/16 17:49 PT 12.8 Seconds (9.9-11.8) H 11/26/16 18:29 INR 1.19 (0.93-1.08) H 11/26/16 18:29 APTT 33.8 Seconds (23.7-30.8) H 11/26/16 18:29 pO2 50 mm/Hg (30-55) 11/27/16 00:00 VBG pH 7.43 (7.32-7.43) 11/27/16 00:00 VBG pCO2 32.0 (40-60) L 11/27/16 00:00 VBG HCO3 21.2 mmol/l (21-28) 11/27/16 00:00 VBG Total CO2 22.2 mmol.L (22-28) 11/27/16 00:00 VBG O2 Sat (Calc) 89.5 % (40-65) H 11/27/16 00:00 VBG Base Excess -2.3 mmol/L (0.0-2.0) L 11/27/16 00:00 VBG Potassium 3.6 mmol/L (3.6-5.2) 11/27/16 00:00 Sodium 129.0 mmol/L (132-148) L 11/27/16 00:00 Chloride 98.0 mmol/L (98-107) 11/27/16 00:00 Glucose 64 mg/dl (75-110) L 11/27/16 00:00 Lactate 1.6 mmol/L (0.7-2.1) 11/27/16 00:00 FiO2 21.0 % 11/27/16 00:00 Sodium 136 mmol/L (132-148) 12/02/16 06:15 Potassium 4.8 mmol/L (3.6-5.0) 12/02/16 06:15 Chloride 99 mmol/L (98-107) 12/02/16 06:15 Carbon Dioxide 29 mmol/L (21-33) 12/02/16 06:15 Anion Gap 13 (10-20) 12/02/16 06:15 BUN 21 mg/dL (7-21) 12/02/16 06:15 Creatinine 0.8 mg/dL (0.5-1.4) 12/02/16 06:15 Est GFR ( Amer) > 60 12/02/16 06:15 Est GFR (Non-Af Amer) > 60 12/02/16 06:15 POC Glucose (mg/dL) 140 mg/dL (65-110) H 11/28/16 08:42 Random Glucose 129 mg/dL (70-110) H 12/02/16 06:15 Serum Osmolality 282 mosm/kg (271-296) 11/27/16 06:00 Calcium 9.6 mg/dL (8.4-10.5) 12/02/16 06:15 Phosphorus 3.0 mg/dL (2.5-4.5) 11/27/16 05:00 Magnesium 2.3 mg/dL (1.7-2.2) H 11/27/16 05:00 Iron 125 ug/dL (45-180) 11/27/16 05:00 TIBC 269 ug/dL (261-462) 11/27/16 05:00 % Saturation 47 % (20-55) 11/27/16 05:00 Transferrin 197.11 mg/dL (206-381) L 11/27/16 05:00 Ferritin 572.0 ng/mL 11/27/16 05:00 Total Bilirubin 1.8 mg/dL (0.2-1.3) H 12/02/16 06:15 AST 40 U/L (15-59) 12/02/16 06:15 ALT 83 U/L (7-56) H 12/02/16 06:15 Alkaline Phosphatase 71 U/L (38-133) 12/02/16 06:15 Total Creatine Kinase 45 U/L (35-230) 12/02/16 06:15 CK-MB (CK-2) 1.66 NG/ML (0.0-3.6) 11/29/16 07:10 CK-MB (CK-2) % 0.4 % (2.5-3.0) L 11/28/16 09:36 Total Protein 7.0 g/dL (5.8-8.3) 12/02/16 06:15 Albumin 3.6 g/dL (3.0-4.8) 12/02/16 06:15 Globulin 3.3 gm/dL 12/02/16 06:15 Albumin/Globulin Ratio 1.1 (1.1-1.8) 12/02/16 06:15 Vitamin B12 728 pg/mL (239-931) 11/30/16 06:30 Folate > 20.0 ng/mL 11/30/16 06:30 Procalcitonin 0.57 NG/ML (0.19-0.49) H 11/26/16 05:30 TSH 3rd Generation 0.56 mIU/mL (0.46-4.68) 11/29/16 07:10 Venous Blood Potassium 3.6 mmol/L (3.6-5.2) 11/27/16 00:00 Urine Opiates Screen Negative (NEGATIVE) 11/29/16 16:00 Urine Methadone Screen Negative (NEGATIVE) 11/29/16 16:00 Ur Barbiturates Screen Negative (NEGATIVE) 11/29/16 16:00 Levetiracetam <1.0 mcg/mL 11/26/16 18:29 Ur Phencyclidine Scrn Negative (NEGATIVE) 11/29/16 16:00 Ur Amphetamines Screen Negative (NEGATIVE) 11/29/16 16:00 U Benzodiazepines Scrn Negative (NEGATIVE) 11/29/16 16:00 U Oth Cocaine Metabols Negative (NEGATIVE) 11/29/16 16:00 U Cannabinoids Screen Positive (NEGATIVE) H 11/29/16 16:00 Alcohol, Quantitative 97 mg/dL (0-10) H 11/26/16 18:29 Hepatitis A IgM Ab Negative (NEGATIVE) 11/27/16 05:00 Hep Bs Antigen Negative (NEGATIVE) 11/27/16 05:00 Hep B Core IgM Ab Negative (NEGATIVE) 11/27/16 05:00 Hepatitis C Antibody Negative (NEGATIVE) 11/27/16 05:00 HIV-1 Ab Rapid Screen Non reactive (NON REAC) 11/27/16 05:00 Attending/Attestation - Attestation I have personally seen and examined this patient.: Yes I have fully participated in the care of the patient.: Yes I have reviewed all pertinent clinical information, including history, physical exam and plan: Yes Notes (Text): 12/03/16 15:59 attending note; I have seen and examined patient at bedside with resident. This is a 61 year old male with history of seizure disorder, alcohol abuse, chronic atrial fibrillation, history of SDH, HTN, CVA, CAD who got admitted for evaluation of witnessed seizure and fall. He had head trauma and low back pain. CT head revealed encephalomalacia. L/S spine xray showed DJD of L3-L4. EEG abnormal. started on keppra. Neuro consult with Dr. Montes appreciated. Patient is on ativan. Patient is awake. Mental status improved. worked with PT today. COPD; improved significantly. Taper steroids. He has transaminitis Secondary to alcohol abuse. Hep panel is negative. Liver ultrasound revealed parenchymal disease vs fatty infiltration. Thrombocytopenia is improving. He has CHADS2 score of 3. HAS-BLED score of 4 therefore high risk of bleeding. not a candidate for long-term anti-coagulation secondary to noncompliance multiple falls, continuous al abuse. Continue lopressor, norvasc,and clonidine. Physical therapy evaluation appreciated. Case discussed with block and case maker for discharge planning. Transferred to subacute rehabilitation today. Upon discharge patient will follow up with Dr Curtis/ PMD of choice. Diagnosis; Alcohol abuse Seizure disorder A. fib History of subdural hematoma Gait instability Noncompliance with follow-up
== END 2016-12-02 19:09 | DRG 101 ==
LOC: ED 17:15 → ERH 21:01 → 2RNO 11-27 02:13 → 5RNO 11-30 19:01
PROVIDERS: ADMIT Hospitalist; ATTEND Internal Medicine
DX: G40.909 Epilepsy, unspecified, not intractable, without status epilepticus (principal); F10.27 Alcohol dependence with alcohol-induced persisting dementia; F10.239 Alcohol dependence with withdrawal, unspecified; R65.10 Systemic inflammatory response syndrome (SIRS) of non-infectious origin without acute organ dysfunction; M62.82 Rhabdomyolysis; D69.6 Thrombocytopenia, unspecified; E87.1 Hypo-osmolality and hyponatremia; J44.1 Chronic obstructive pulmonary disease with (acute) exacerbation; G93.89 Other specified disorders of brain; I48.2 Chronic atrial fibrillation; F17.210 Nicotine dependence, cigarettes, uncomplicated; Y90.4 Blood alcohol level of 80-99 mg/100 ml; F14.90 Cocaine use, unspecified, uncomplicated; F12.90 Cannabis use, unspecified, uncomplicated; I25.10 Atherosclerotic heart disease of native coronary artery without angina pectoris; I10 Essential (primary) hypertension; M51.36 Other intervertebral disc degeneration, lumbar region; E87.6 Hypokalemia; R45.1 Restlessness and agitation; M79.672 Pain in left foot; I25.2 Old myocardial infarction; Z91.14 Patient's other noncompliance with medication regimen; Z78.1 Physical restraint status; Z87.820 Personal history of traumatic brain injury

== ENCOUNTER 2017-05-03 14:00 | Observation (INO) | payer MEDICARE ==
[2017-05-03 14:00] VITALS: BMI 24.7
[2017-05-03] MEDS ORDERED: Lidocaine 1% Inj (20ml) IJ STA (14:18)
[2017-05-03] MEDS ORDERED: TDAP Vaccine 0.5 mL Syr IM ONE (14:18)
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
[2017-05-03 14:25] VITALS: TEMP 98.2
--- NOTE | 2017-05-03 16:50 | CT ---
PROCEDURE: CT HEAD WITHOUT CONTRAST. HISTORY: etoh fall head injury COMPARISON: 11/26/2016 TECHNIQUE: Axial computed tomography images were obtained through the head/brain without intravenous contrast. Radiation dose: Total exam DLP = 836.67 mGy-cm. This CT exam was performed using one or more of the following dose reduction techniques: Automated exposure control, adjustment of the mA and/or kV according to patient size, and/or use of iterative reconstruction technique. FINDINGS: HEMORRHAGE: No intracranial hemorrhage. BRAIN: No mass effect or edema. Multifocal encephalomalacia. Extensive bilateral inferior frontal and VENTRICLES: Unremarkable. No hydrocephalus. CALVARIUM: Unremarkable. PARANASAL SINUSES: Chronic ethmoid and bilateral maxillary sinusitis. MASTOID AIR CELLS: Unremarkable as visualized. No inflammatory changes. OTHER FINDINGS: None. IMPRESSION: No intracranial mass, hemorrhage or evidence of acute infarct. Stable multifocal bilateral encephalomalacia. Chronic paranasal sinusitis.
--- NOTE | 2017-05-03 16:54 | CT ---
PROCEDURE: CT Cervical Spine without contrast HISTORY: Status post fall COMPARISON: None available. TECHNIQUE: Axial computed tomography images were obtained of the cervical spine without the use of intravenous contrast. Coronal and sagittal reformatted images were created and reviewed. Radiation dose: Total exam DLP = 595.76 mGy-cm. This CT exam was performed using one or more of the following dose reduction techniques: Automated exposure control, adjustment of the mA and/or kV according to patient size, and/or use of iterative reconstruction technique. FINDINGS: VERTEBRAE: No fracture. Normal alignment. No destructive bony lesion. Normal vertebral alignment is maintained. There is straightening of the normal lordotic curvature indicating possible muscular spasm. DISCS/SPINAL CANAL/NEURAL FORAMINA: There is narrowing of the C5-6 and C6-7 intervertebral disc spaces consistent with degenerative disc disease. The remaining intervertebral disc spaces are maintained in height. PARASPINAL SOFT TISSUES: Unremarkable. OTHER FINDINGS: Mild subpleural emphysema in right apex common nonspecific. IMPRESSION: No fracture/ dislocation. Possible muscular spasm. Degenerative disc disease at C5-6 and C6-7.
[2017-05-03] MEDS ORDERED: ceFAZolin 1 gm in NS 1 GM/100 ML BAG IVPB ONE (19:00)
[2017-05-03 19:52] VITALS: BP 134/84; PULSE 80; RESP 16; O2SAT 99
== END 2017-05-03 20:19 | disposition home or self-care (01) ==
LOC: ED 14:00 → EROBSV 14:30
PROVIDERS: ADMIT Emergency Medicine; ATTEND Emergency Medicine
DX: F10.10 Alcohol abuse, uncomplicated (principal); S01.319A Laceration without foreign body of unspecified ear, initial encounter; X58.XXXA Exposure to other specified factors, initial encounter; Z23 Encounter for immunization; J44.9 Chronic obstructive pulmonary disease, unspecified; I48.2 Chronic atrial fibrillation; I15.0 Renovascular hypertension
CPT/HCPCS: 12013; 70450; 72125; 90471; 90715; 99284; G0378

== ENCOUNTER 2018-02-16 12:59 | Emergency (ER) | payer MEDICARE ==
[2018-02-16 12:59] VITALS: BMI 24.7
[2018-02-16 13:13] VITALS: RESP 18
[2018-02-16] MEDS ORDERED: TDAP Vaccine 0.5 mL Syr IM ONE (13:23)
--- NOTE | 2018-02-16 13:34 | ED PDOC ---
Arrival/HPI - General Chief Complaint: Trauma Time Seen by Provider: 02/16/18 13:07 Historian: Patient - History of Present Illness Narrative History of Present Illness (Text): 02/16/18 13:16 A 62 year old male, whose past medical history includes alcohol abuse, cerebrovascular accident, COPD, and chronic atrial fibrillation, brought into the emergency department for intoxication. Patient reports he fell and sustained abrasions. Patient denies any symptomatic complaints. Admits to alcohol use. No PMD 02/16/18 16:47 Past Medical History - Provider Review Nursing Documentation Reviewed: Yes - Infectious Disease Hx of Infectious Diseases: None - Tetanus Immunization Tetanus Immunization: Unknown - Cardiac Hx Cardiac Disorders: Yes Hx NV: Yes Hx Hypertension: Yes - Pulmonary Hx Respiratory Disorders: Yes Hx Chronic Obstructive Pulmonary Disease (COPD): Yes Other/Comment: HX SMOKING - Neurological Hx Neurological Disorder: Yes HX Cerebrovascular Accident: Yes Hx Dementia: Yes Hx Seizures: Yes - HEENT Hx HEENT Disorder: No - Renal Hx Renal Disorder: No - Endocrine/Metabolic Hx Endocrine Disorders: No - Hematological/Oncological Hx Blood Disorders: No - Integumentary Hx Dermatological Disorder: No - Musculoskeletal/Rheumatological Hx Musculoskeletal Disorders: Yes Hx Falls: Yes Hx Fractures: Yes Hx Herniated Disk: Yes Hx Unsteady Gait: Yes - Gastrointestinal Hx Gastrointestinal Disorders: Yes Other/Comment: HERNIA REPAIR - Genitourinary/Gynecological Hx Genitourinary Disorders: No - Psychiatric Hx Depression: No Hx Emotional Abuse: No Hx Physical Abuse: No Hx Substance Use: No - Past Surgical History Past Surgical History: No Previous - Anesthesia Hx Anesthesia: No - Suicidal Assessment Feels Threatened In Home Enviroment: No Family/Social History - Physician Review Nursing Documentation Reviewed: Yes Family/Social History: No Known Family HX Smoking Status: Heavy Smoker > 10 Cigarettes Daily Hx Alcohol Use: Yes Frequency of alcohol use: Daily Hx Substance Use: No Hx Substance Use Treatment: No Allergies/Home Meds Allergies/Adverse Reactions: Allergies No Known Allergies Allergy (Verified 02/16/18 13:08) Home Medications: Home Meds Medication Instructions Recorded Confirmed No Known Home Med 02/16/18 02/16/18 Review of Systems - Review of Systems Constitutional: absent: Fevers, Night Sweats Eyes: absent: Vision Changes Respiratory: absent: SOB Cardiovascular: absent: Chest Pain Gastrointestinal: absent: Abdominal Pain, Diarrhea, Nausea, Vomiting Genitourinary Male: absent: Dysuria, Frequency, Hematuria, Urinary Output Changes Musculoskeletal: absent: Back Pain, Neck Pain Skin: Other (abrasions s/p fall) Neurological: absent: Headache, Dizziness Psychiatric: absent: Anxiety Physical Exam Vital Signs Reviewed: Yes Vital Signs Temp Pulse Resp BP Pulse Ox 02/16/18 15:15 98 F 84 18 132/85 95 02/16/18 13:12 98.6 F 85 18 127/91 H 92 L Temperature: Afebrile Blood Pressure: Normal Pulse: Regular Respiratory Rate: Normal Appearance: Positive for: Well-Appearing, Other (intoxicated) Pain Distress: None Mental Status: Positive for: Alert and Oriented X 3 - Systems Exam Head: Present: Abrasion (posterior scalp) Mouth: Present: Moist Mucous Membranes Neck: Present: Normal Range of Motion. No: MIDLINE TENDERNESS Respiratory/Chest: Present: Clear to Auscultation, Good Air Exchange. No: Respiratory Distress, Accessory Muscle Use Cardiovascular: Present: Regular Rate and Rhythm, Normal S1, S2. No: Murmurs Abdomen: No: Tenderness, Distention, Peritoneal Signs Back: No: Midline Tenderness Upper Extremity: Present: Normal Inspection, Normal ROM. No: Cyanosis, Edema Lower Extremity: Present: Normal Inspection, Normal ROM, Other (abrasion to right knee, no bony hip tenderness). No: Edema Neurological: Present: GCS=15, CN II-XII Intact, Speech Normal Skin: Present: Warm, Dry, Normal Color. No: Rashes Psychiatric: Present: Alert, Oriented x 3, Normal Insight, Normal Concentration , Other (smells of alcohol) Medical Decision Making ED Course and Treatment: 02/16/18 13:20 Impression: 62 year old male with intoxication and abrasions s/p fall. Physical exam shows abrasion to posterior scalp and right knee; no midline tenderness; no bony tenderness. Plan: -- Head CT -- Cervical Spinal CT -- Chest X-ray -- Right Knee X-Ray -- Boostrix Vaccine -- Reassess and disposition Progress Notes: 02/16/2018 14:[address] IMPRESSION: There is extensive bilateral frontal encephalomalacia. Smaller area of encephalomalacia are seen i nthe left frontal convexity and left parietal convexity. No acute findings. Dictator: Richard Stover MD 02/16/2018 14:37 Chest X-ray IMPRESSION: Airspace disease in the right lower lobe may represent atelectasis or pneumonia. Lung contusion is a consideration with the stated history of trauma. Follow-up is advised. Dictator: Alivia Berman MD 02/06/2018 14:38 Right X-Ray IMPRESSION: No acute fracture or dislocation. Dictator: Alivia Hatfield MD 02/16/2018 14:[address] IMPRESSION: There is disc degeneration with bilateral foraminal stenosis at C5- 6. There is a left-sided foraminal stenosis with a large uncovertebral osteophyte at C6-7. Dictator: Richard Stover MD 02/16/18 14:44 PROCEDURE: LACERATION REPAIR Performed by the emergency provider Location: Posterior scalp Length: 3 linear lacerations, each 2 cm Description: {"clean wound edges","no foreign bodies"} Distal CMS: Normal. No deficits. Neurovascularly intact. Anesthesia: Lidocaine 1% Preparation: The wound was cleaned with NS and Betadyne. The area was prepped and draped in the usual sterile fashion. Exploration: The wound was explored and no foreign bodies were found. Procedure: The wound was closed with betty. In total, 6 were used. Patient refused to have additional betty. Post-Procedure: Good closure and hemostasis. The patient tolerated the procedure well and there were no complications. CSM remains intact. Post procedure dressing applied. Patient to follow-up with PMD. - RAD Interpretation Radiology Orders: 02/16/18 13:20 CERVICAL SPINE W/O CONTRAST [CT] Stat HEAD W/O CONTRAST [CT] Stat CHEST ONE VIEW [RAD] Stat KNEE RIGHT 2 VIEWS (AP & LAT) [RAD] Stat - Medication Orders Current Medication Orders: Discontinued Medications Tetanus/Reduced Diphtheria/Acell Pertussis (Boostrix Vaccine Inj) 0.5 ml IM .ONCE ONE Stop: 02/16/18 13:24 Last Admin: 02/16/18 13:34 Dose: 0.5 ml MAR Immunization Data Document 02/16/18 13:34 SRE (Rec: 02/16/18 13:34 SRE [id number]) Immunization Data Vaccine Information Sheet Given Yes - Scribe Statement The provider has reviewed the documentation as recorded by the Scribe Madeline Vera Provider Scribe Attestation: All medical record entries made by the Scribe were at my direction and personally dictated by me. I have reviewed the chart and agree that the record accurately reflects my personal performance of the history, physical exam, medical decision making, and the department course for this patient. I have also personally directed, reviewed, and agree with the discharge instructions and disposition. Disposition/Present on Arrival - Present on Arrival Any Indicators Present on Arrival: No History of DVT/PE: Yes History of Uncontrolled Diabetes: No Urinary Catheter: No History of Decub. Ulcer: No History Surgical Site Infection Following: None - Disposition Have Diagnosis and Disposition been Completed?: Yes Diagnosis: Spinal stenosis, Lung contusion, Fall, Alcohol abuse, Head trauma Disposition: HOME/ ROUTINE Disposition Time: 14:49 Patient Plan: Discharge Condition: GOOD Discharge Instructions (ExitCare): Spinal Stenosis, Preventing Falls in the Older Adult, Alcohol Abuse and Alcoholism (DC) Additional Instructions: Follow-up with PMD within 2 days. Return to ED if condition worsens. Decrease alcohol use. Forms: [email or web address] (Sal[place]orean)
--- NOTE | 2018-02-16 14:37 | CT ---
Date of service: 02/16/2018 PROCEDURE: CT HEAD WITHOUT CONTRAST. HISTORY: head injury COMPARISON: 05/03/2017 CT TECHNIQUE: Axial computed tomography images were obtained through the head/brain without intravenous contrast. Radiation dose: Total exam DLP = 881 mGy-cm. This CT exam was performed using one or more of the following dose reduction techniques: Automated exposure control, adjustment of the mA and/or kV according to patient size, and/or use of iterative reconstruction technique. FINDINGS: HEMORRHAGE: No intracranial hemorrhage. BRAIN: No mass effect or edema. There is extensive bilateral frontal encephalomalacia. Smaller areas of encephalomalacia are seen in the left frontal convexity and left parietal convexity VENTRICLES: Unremarkable. No hydrocephalus. CALVARIUM: Unremarkable. PARANASAL SINUSES: Unremarkable as visualized. No significant inflammatory changes. MASTOID AIR CELLS: Unremarkable as visualized. No inflammatory changes. OTHER FINDINGS: None. IMPRESSION: There is extensive bilateral frontal encephalomalacia. Smaller areas of encephalomalacia are seen in the left frontal convexity and left parietal convexity. No acute findings
--- NOTE | 2018-02-16 14:38 | RAD ---
Date of service: 02/16/2018 PROCEDURE: CHEST RADIOGRAPH, 1 VIEW HISTORY: Fall COMPARISON: None available. FINDINGS: LUNGS: The lungs are well inflated. There is airspace disease in the right lower lobe. PLEURA: No pneumothorax or pleural fluid seen. CARDIOVASCULAR: There is mild cardiomegaly. OSSEOUS STRUCTURES: No significant abnormalities. VISUALIZED UPPER ABDOMEN: Normal. OTHER FINDINGS: None. IMPRESSION: Airspace disease in the right lower lobe may represent atelectasis or pneumonia. Lung contusion is a consideration with the stated history of trauma. Follow-up is advised.
--- NOTE | 2018-02-16 14:39 | RAD ---
Date of service: 02/16/2018 PROCEDURE: Right Knee Radiographs. HISTORY: R knee pain COMPARISON: None. FINDINGS: BONES: Bone alignment and mineralization are normal. There is no acute displaced fracture or bone destruction. JOINTS: Normal. JOINT EFFUSION: None. OTHER FINDINGS: None. IMPRESSION: No acute fracture or dislocation.
--- NOTE | 2018-02-16 14:41 | CT ---
Date of service: 02/16/2018 PROCEDURE: CT Cervical Spine without contrast HISTORY: fall, with etoh COMPARISON: None available. TECHNIQUE: Axial computed tomography images were obtained of the cervical spine without the use of intravenous contrast. Coronal and sagittal reformatted images were created and reviewed. Radiation dose: Total exam DLP = 499 mGy-cm. This CT exam was performed using one or more of the following dose reduction techniques: Automated exposure control, adjustment of the mA and/or kV according to patient size, and/or use of iterative reconstruction technique. FINDINGS: VERTEBRAE: No fracture. Normal alignment. No destructive bony lesion. DISCS/SPINAL CANAL/NEURAL FORAMINA: No significant central canal or neural foraminal stenosis. There is disc degeneration with bilateral foraminal stenosis at C5-6. There is left-sided foraminal stenosis with a large uncovertebral osteophyte at C6-7 PARASPINAL SOFT TISSUES: Unremarkable. OTHER FINDINGS: None. IMPRESSION: There is disc degeneration with bilateral foraminal stenosis at C5-6. There is left-sided foraminal stenosis with a large uncovertebral osteophyte at C6-7
[2018-02-16 15:27] VITALS: BP 132/85; PULSE 84; TEMP 98; O2SAT 95
== END 2018-02-16 15:15 | disposition home or self-care (01) ==
LOC: ED 12:59
DX: F10.10 Alcohol abuse, uncomplicated (principal); M48.00 Spinal stenosis, site unspecified; S27.329A Contusion of lung, unspecified, initial encounter; S09.90XA Unspecified injury of head, initial encounter; W19.XXXA Unspecified fall, initial encounter; Y92.9 Unspecified place or not applicable; Z23 Encounter for immunization

== ENCOUNTER 2018-04-09 15:37 | Inpatient (IN) | payer MEDICARE, OTHER ==
[2018-04-09] MEDS ORDERED: TDAP Vaccine 0.5 mL Syr IM ONE (16:08)
--- NOTE | 2018-04-09 16:14 | ED PDOC ---
Arrival/HPI - General Chief Complaint: Seizure Time Seen by Provider: 04/09/18 15:41 Historian: Patient, Family - History of Present Illness Time/Duration: Prior to Arrival Associated Symptoms (Text): 62yo male, history of alcohol abuse and seizure disorder, non-compliant with anti-epileptics, brought to Emergency room after he had a witnessed seizure. Patient admits to drinking yesterday and states he fell due to being intoxicated , with right ribs and left hand injury; patient unsure if he had loss of consciousness. Patient reports drinking alcohol today and had a witnessed seizure by a bystander with associated urine incontinence. Currently, patient is alert, oriented x 3 and complains of right sided rib pain. Patient denies any chest pain, weakness, numbness, or lower extremity pain. Past Medical History - Provider Review Nursing Documentation Reviewed: Yes - Infectious Disease Hx of Infectious Diseases: None - Tetanus Immunization Tetanus Immunization: Unknown - Cardiac Hx Cardiac Disorders: Yes Hx NH: Yes Hx Hypertension: Yes - Pulmonary Hx Respiratory Disorders: Yes Hx Chronic Obstructive Pulmonary Disease (COPD): Yes Other/Comment: HX SMOKING - Neurological Hx Neurological Disorder: Yes HX Cerebrovascular Accident: Yes Hx Dementia: Yes Hx Seizures: Yes - HEENT Hx HEENT Disorder: No - Renal Hx Renal Disorder: No - Endocrine/Metabolic Hx Endocrine Disorders: No - Hematological/Oncological Hx Blood Disorders: No - Integumentary Hx Dermatological Disorder: No - Musculoskeletal/Rheumatological Hx Musculoskeletal Disorders: Yes Hx Falls: Yes Hx Fractures: Yes Hx Herniated Disk: Yes Hx Unsteady Gait: Yes - Gastrointestinal Hx Gastrointestinal Disorders: Yes Other/Comment: HERNIA REPAIR - Genitourinary/Gynecological Hx Genitourinary Disorders: No - Psychiatric Hx Psychophysiologic Disorder: Yes Hx Substance Use: No - Past Surgical History Past Surgical History: No Previous - Anesthesia Hx Anesthesia: No - Suicidal Assessment Feels Threatened In Home Enviroment: No Family/Social History - Physician Review Nursing Documentation Reviewed: Yes Family/Social History: No Known Family HX Smoking Status: Heavy Smoker > 10 Cigarettes Daily Hx Alcohol Use: Yes Hx Substance Use: No Hx Substance Use Treatment: No Allergies/Home Meds Allergies/Adverse Reactions: Allergies No Known Allergies Allergy (Verified 04/09/18 15:54) Home Medications: Home Meds Medication Instructions Recorded Confirmed No Known Home Med 02/16/18 04/09/18 Review of Systems - Physician Review All systems were reviewed & negative as marked: Yes - Review of Systems Respiratory: absent: SOB Cardiovascular: absent: Chest Pain Genitourinary Male: Other (urinary incontinence) Neurological: Seizure Physical Exam Vital Signs Reviewed: Yes Vital Signs Temp Pulse Resp BP Pulse Ox 04/09/18 22:20 88 19 93 L 04/09/18 22:16 998.8 F H 90 16 154/97 H 94 L 04/09/18 22:10 95 H 17 94 L 04/09/18 22:08 90 15 154/97 H 93 L 04/09/18 22:06 91 H 17 04/09/18 16:59 86 18 158/96 H 98 04/09/18 15:54 98.7 F 92 H 16 163/104 H 96 Temperature: Afebrile Blood Pressure: Normal Pulse: Regular Respiratory Rate: Normal Appearance: Positive for: Non-Toxic, Comfortable Pain Distress: None Mental Status: Positive for: Alert and Oriented X 3 - Systems Exam Head: Present: Normocephalic, Abrasion (abrasion to posterior scalp) Pupils: Present: PERRL Extroacular Muscles: Present: EOMI Conjunctiva: Present: Normal Mouth: Present: Moist Mucous Membranes, Other (no tongue fasciculations) Neck: Present: Normal Range of Motion. No: MIDLINE TENDERNESS Respiratory/Chest: Present: Clear to Auscultation, Good Air Exchange, Tender to Palpation (point tenderness to right ribs). No: Respiratory Distress, Accessory Muscle Use Cardiovascular: Present: Irregular Rhythm. No: Murmurs Abdomen: No: Tenderness, Distention, Peritoneal Signs Upper Extremity: Present: Normal Inspection, Normal ROM (bilaterally), Other ( bruising noted to palm of left hand). No: Cyanosis, Edema Lower Extremity: Present: Normal Inspection, NORMAL PULSES, Normal ROM ( bilaterally). No: Edema Neurological: Present: GCS=15, CN II-XII Intact, Speech Normal, Other (no extremity tremors) Psychiatric: Present: Alert, Oriented x 3, Normal Insight, Normal Concentration Medical Decision Making ED Course and Treatment: Impression: 62yo male, brought to Emergency room for evaluation s/p seizure Plan: -- Labs -- CT Head w/o contrast -- XR Left Hand -- XR Ribs right & PA Chest -- TDAP Booster 0.5ml IM -- Reassess and disposition Prior Visits: Notes and results from previous visits were reviewed. Patient was last seen in the Emergency department on 02/16/18 for evaluation due to alcohol intoxication, and fall. Patient was discharged home. Progress Notes: 04/09/18 17:42 EKG shows afib at 88bpm with pvcs with non-specific st changes 04/09/18 18:09 No acute intracranial hemorrhage. Significant bifrontal partially cystic encephalomalacia changes associated with ex vacuo dilatation of the frontal horns. Findings are consistent with sequela of old trauma. There also encephalomalacia changes left frontal operculum and left posterior parieto-occipital watershed zone which could represent the sequela of old trauma as well (contrecoup type injuries) versus chronic infarcts. . Low-attenuation changes extend posteriorly along the anterior limbs of both internal capsules. Significant central volume loss evidenced by disproportionate enlargement of ventricles compared sulci. 04/09/18 19:[address] room and had an additional seizure. Patient came back to baseline and noted to be awake, alert and oriented x 3. Patient given Ativan 3mg with completion of CT. 04/09/18 19:11 Refusing xray of L hand 04/09/18 19:56 CT Abdomen/Pelvis FINDINGS: Lung bases: Unremarkable. No mass. No consolidation. Heart: Mild cardiomegaly. ABDOMEN: Liver: Fatty liver. Gallbladder and bile ducts: Unremarkable. No calcified stones. No ductal dilation. Pancreas: Unremarkable. No mass. No ductal dilation. Spleen: Unremarkable. No splenomegaly. Adrenals: There is a soft tissue nodule involving the right adrenal gland 2.8 cm. Kidneys and ureters: There is right perinephric edema. There is a posterior perinephric hematoma, 2.1 cm in thickness involving the right mid and lower pole level. There is some mild mass effect on the right kidney. No hydronephrosis. Stomach and bowel: Diverticulosis without acute diverticulitis. No obstruction. PELVIS: Appendix: No findings to suggest acute appendicitis. Bladder: Bladder decompressed. Reproductive: Unremarkable as visualized. ABDOMEN and PELVIS: Intraperitoneal space: Unremarkable. No free air. No significant fluid collection. Bones/joints: No acute fracture. No dislocation. Soft tissues: Small, fat-containing periumbilical hernia. Vasculature: Severe atherosclerotic change present in the vasculature. No abdominal aortic aneurysm. Lymph nodes: Unremarkable. No enlarged lymph nodes. IMPRESSION: Right posterior perinephric hematoma. EXAM: CT Chest With Intravenous Contrast FINDINGS: Artifacts: Respiratory motion present. Lungs: There is mild right lower lobe atelectasis. Pleural space: Unremarkable. No pneumothorax. No significant effusion. Heart: Coronary artery calcifications noted. Mild cardiomegaly. No significant pericardial effusion. Bones/joints: There appear to be nonacute left-sided rib fractures at the lower rib levels. No definite acute fracture seen. No dislocation. Soft tissues: Unremarkable. Vasculature: Moderate atherosclerotic change present. No thoracic aortic aneurysm. Lymph nodes: Unremarkable. No enlarged lymph nodes. IMPRESSION: Left-sided nonacute rib fractures noted. No definite acute fracture evident. Preliminary interpretation is based on receipt of 1108 image(s). A final report will be issued subsequently. We appreciate the opportunity to be involved in this patient's care. 04/09/18 20:05 Due to ?alcohol withdrawal seizure vs organic seizure, non-compliant with anti- epileptics, with CT showing hematoma, with already 2 seizures today recommend ICU. Dr. Hatfield accepts. Loaded with cerebryx 04/09/18 20:08 EKG shows afib at 88bpm with with t wave inversions. trop 0.07. Aspirin given prior to CT abd/pelvis results due to trop 04/09/18 22:55 04/09/18 22:55 - Lab Interpretations Lab Results: 04/09/18 16:39 04/09/18 16:39 Lab Results 04/09/18 16:39: PT 11.8, INR 1.03, APTT 34.7 04/09/18 16:39: Alcohol, Quantitative 131 H 04/09/18 16:39: Sodium 131 L, Potassium 4.2, Chloride 80 L, Carbon Dioxide 30, Anion Gap 25 H, BUN 11, Creatinine 0.9, Est GFR ( Amer) > 60, Est GFR ( Non-Af Amer) > 60, Random Glucose 266 H, Calcium 9.5, Phosphorus 3.8, Magnesium 2.0, Total Bilirubin 1.9 H, AST 58, ALT 49, Alkaline Phosphatase 92, Total Creatine Kinase 125, Troponin I 0.07, Total Protein 7.8, Albumin 4.7, Globulin 3.1, Albumin/Globulin Ratio 1.6 04/09/18 16:39: WBC 12.2 H D, RBC 5.20, Hgb 17.4, Hct 48.8, MCV 93.8, MCH 33.5, MCHC 35.7, RDW 13.4, Plt Count 110 L, MPV 10.3, Gran % 76.3 H, Lymph % (Auto) 8.2 L, Kane % (Auto) 15.4 H, Eos % (Auto) 0.1 L, Baso % (Auto) 0.0, Gran # 9.34 H, Lymph # (Auto) 1.0 L, Kane # (Auto) 1.9 H, Eos # (Auto) 0.0, Baso # (Auto) 0.00 04/09/18 16:35: POC Glucose (mg/dL) 285 H - RAD Interpretation Radiology Orders: 04/09/18 16:07 HEAD W/O CONTRAST [CT] Stat 04/09/18 16:08 RIBS RIGHT [RAD] Stat 04/09/18 18:41 CHEST,ABD,PEL W/IV CONT ONLY [CT] Stat - Medication Orders Current Medication Orders: Discontinued Medications Aspirin (Aspirin Chewable) 81 mg PO STAT STA Stop: 04/09/18 19:11 Aspirin (Aspirin Chewable) 81 mg PO STAT STA Stop: 04/09/18 22:46 Sodium Chloride (Sodium Chloride 0.9%) 1,000 mls @ 999 mls/hr IV .Q1H1M STA Stop: 04/09/18 18:24 Last Admin: 04/09/18 18:50 Dose: 999 mls/hr eMAR Start Stop Document 04/09/18 18:50 [email or web address] (Rec: 04/09/18 18:53 [email or web address] [id number]) Intravenous Solution Start Date 04/09/18 Start Time 18:53 End Date 04/09/18 Fosphenytoin Sodium 1,000 mg/ (Sodium Chloride) 70 mls @ 100 mls/hr IV STAT STA Stop: 04/09/18 20:43 Last Admin: 04/09/18 21:13 Dose: 100 mls/hr eMAR Start Stop Document 04/09/18 21:13 YANDEL (Rec: 04/09/18 21:14 JMR [id number]) Intravenous Solution Start Date 04/09/18 Start Time 21:14 Lorazepam (Ativan) 2 mg IVP ONCE ONE PRN Reason: Protocol Stop: 04/09/18 19:07 Last Admin: 04/09/18 19:07 Dose: 2 mg 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 IVP Administration Document 04/09/18 19:07 EQ (Rec: 04/09/18 19:07 EQ [id number]) Charges for Administration # of IVP Administrations 1 Morphine Sulfate (Morphine) 4 mg IVP STAT STA Stop: 04/09/18 18:46 Last Admin: 04/09/18 18:53 Dose: 4 mg MAR Pain Assessment Document 04/09/18 18:53 [email or web address] (Rec: 04/09/18 18:54 [facility] [id number]) Pain Reassessment Is this a pain reassessment? No Sleep Is patient sleeping during reassessment? No Presence of Pain Presence of Pain Yes Pain Scale Used Pain Scale Used Numeric Location Left, Right or Bilateral Right Pain Location Body Site Abdomen Description Description Constant Intensity of Pain at present 7 Pain Behavior Facial Grimacing Aggravating Factors Changing Position Alleviating Factors/Management Medication Techniques Alleviating Factors Medication IVP Administration Document 04/09/18 18:53 [email or web address] (Rec: 04/09/18 18:54 [email or web address] [id number]) Charges for Administration # of IVP Administrations 1 Tetanus/Reduced Diphtheria/Acell Pertussis (Boostrix Vaccine Inj) 0.5 ml IM .ONCE ONE Stop: 04/09/18 16:09 Last Admin: 04/09/18 18:54 Dose: 0.5 ml Immunization Registry Document 04/09/18 18:54 [email or web address] (Rec: 04/09/18 18:54 [email or web address] [id number]) Immunization Registry Consent Date 02/16/18 - Scribe Statement The provider has reviewed the documentation as recorded by the Brando Lloyd Provider Scribe Attestation: All medical record entries made by the Scribe were at my direction and personally dictated by me. I have reviewed the chart and agree that the record accurately reflects my personal performance of the history, physical exam, medical decision making, and the department course for this patient. I have also personally directed, reviewed, and agree with the discharge instructions and disposition. Disposition/Present on Arrival - Present on Arrival Any Indicators Present on Arrival: No History of DVT/PE: Yes History of Uncontrolled Diabetes: No Urinary Catheter: No History of Decub. Ulcer: No History Surgical Site Infection Following: None - Disposition Have Diagnosis and Disposition been Completed?: Yes Diagnosis: Encephalomalacia with cerebral infarction, Seizure, Alcohol abuse Disposition: HOSPITALIZED Disposition Time: 20:04 Patient Plan: ICU Patient Problems: Current Active Problems Problem Status Onset Alcohol abuse Acute Encephalomalacia with cerebral infarction Acute Seizure Acute Condition: CRITICAL
[2018-04-09 16:57] LABS: EOS % 0.1 % (1.5-5.0); GRAN # 9.34 (1.4-6.5); GRAN % 76.3 % (50.0-68.0); HEMOGLOBIN 17.4 g/dL (14.0-18.0); LYMPH % 8.2 % (22.0-35.0); MEAN CELL VOLUME 93.8 fl (80.0-105.0); MEAN CORPUSCULAR HEMOGLOBIN 33.5 pg (25.0-35.0); MEAN CORPUSCULAR HGB CONC 35.7 g/dl (31.0-37.0); MEAN PLATELET VOLUME 10.3 fl (7.0-11.0); MONO # 1.9 (0.1-0.6); MONO % 15.4 % (1.0-6.0); RBC 5.2 10^6/uL (3.5-6.1); RED CELL DISTRIBUTION WIDTH 13.4 % (11.5-14.5); WHITE BLOOD COUNT 12.2 10^3/ul (4.5-11.0)
[2018-04-09 17:06] LABS: INR 1.03; PARTIAL THROMBOPLASTIN TIME 34.7 Seconds (25.1-36.5); PROTHROMBIN TIME 11.8 SECONDS (9.4-12.5)
[2018-04-09 17:08] LABS: ALB/GLOB RATIO 1.6 (1.1-1.8); ALBUMIN 4.7 g/dL (3.0-4.8); ALT/SGPT 49 U/L (7-56); AST/SGOT 58 U/L (17-59); BLOOD UREA NITROGEN 11 mg/dL (7-21); CALCIUM 9.5 mg/dL (8.4-10.5); GFR NON-AFRICAN AMERICAN > 60
[2018-04-09 17:18] LABS: TROPONIN I 0.07 ng/mL
[2018-04-09] MEDS ORDERED: Sodium Chloride 0.9% 1,000 ML IV STA (17:24)
--- NOTE | 2018-04-09 18:08 | CT ---
Date of service: 04/09/2018 PROCEDURE: CT HEAD WITHOUT CONTRAST. HISTORY: Seizure COMPARISON: Comparison made with prior CT scan 02/16/2018 TECHNIQUE: Axial computed tomography images were obtained through the head/brain without intravenous contrast. Radiation dose: Total exam DLP = 881.37 mGy-cm. This CT exam was performed using one or more of the following dose reduction techniques: Automated exposure control, adjustment of the mA and/or kV according to patient size, and/or use of iterative reconstruction technique. FINDINGS: HEMORRHAGE: No acute parenchymal, subarachnoid or extra-axial hemorrhage. BRAIN: Significant bilateral partially cystic encephalomalacia changes are again seen most consistent with sequela of remote trauma. Clinical correlation recommended. Low-attenuation changes extend posteriorly along the at anterior limbs of both internal capsules. There is also partially cystic encephalomalacia left frontal operculum region and left posterior parieto-occipital watershed zone also which may also represent sequela of old trauma (contrecoup type injuries) versus is a chronic infarcts. There is ex vacuo dilatation of both frontal horns as a result of the encephalomalacia. Vascular calcifications both carotid siphons. . VENTRICLES: There is also dilatation of the 3rd and lateral ventricles consistent with central volume loss. No evidence of obstructive hydrocephalus. CALVARIUM: Calvarium intact. PARANASAL SINUSES: Mild mucosal thickening both maxillary antra left greater than right. Mild mucosal thickening noted within the ethmoid air complex and the sphenoid sinus. . Note again made of a osteoma within 1 of the left posterior superior ethmoid air cells. MASTOID AIR CELLS: Unremarkable as visualized. No inflammatory changes. OTHER FINDINGS: None. IMPRESSION: No acute intracranial hemorrhage. Significant bifrontal partially cystic encephalomalacia changes associated with ex vacuo dilatation of the frontal horns. Findings are consistent with sequela of old trauma. There also encephalomalacia changes left frontal operculum and left posterior parieto-occipital watershed zone which could represent the sequela of old trauma as well (contrecoup type injuries) versus chronic infarcts. . Low-attenuation changes extend posteriorly along the anterior limbs of both internal capsules. Significant central volume loss evidenced by disproportionate enlargement of ventricles compared sulci.
[2018-04-09] MEDS ORDERED: Morphine 4 mg/ml ISec IVP STA (18:45)
[2018-04-09] MEDS ORDERED: Iohexol 350 MG/100 ML VIAL ONE (18:49)
--- NOTE | 2018-04-09 19:14 | PCM.RRT ---
<Ted De La Rosa - Last Filed: 04/09/18 19:16> I.Reason for AUTO DEALER - A) Acute Change in Patient: Subjective: Ted De La Rosa DO PGY-1, Event Technician Rapid response was called to CT Scan Ground Floor at 18:39 due to witnessed seizure by pt while in CT scan room. Per staff, pt had reported 15-20 second tonic-clonic seizure. Staff quickly administered Ativan 2 mg with improvement of symptoms. ED attending aware and at bedside. Senior residents aware and at bedside. Dr. Hatfield at bedside, agrees with plan. - Constitutional Appears: No Acute Distress - Head Head Exam: ATRAUMATIC, NORMAL INSPECTION - Eyes Eye Exam: EOMI, Normal appearance, PERRL - Cardiovascular Exam Cardiovascular Exam: REGULAR RHYTHM, +S1, +S2 - GI/Abdominal Exam GI & Abdominal Exam: Soft, Normal Bowel Sounds. absent: Tenderness - Neurological Exam Neurological Exam: Alert, Awake, Oriented x3 - Extremities Exam Extremities Exam: Full ROM, Normal Capillary Refill, Normal Inspection Plan - Assessment of Findings&Treatment Plan 62 M PMhx EtOH abuse and seizures (hx non-compliance with anti-seizure meds) with rapid response called 2/[address] room ground floor. Plan: -S/p Ativan 2 mg with improvement -ED attending Dr. Myers aware, pt to undergo further work-up -Senior residents Dr. Lucas PGY-[address] Barton PGY-[address] Hatfield at bedside, agrees with plan. <Salina Hatfield - Last Filed: 04/09/18 19:42> AUTO DEALER Nurse Assessment - Situation Date: 04/09/18 Time AUTO DEALER was called: 19:40 AUTO DEALER Responder Arrival Time: 19:30 AUTO DEALER Location:: CT scan AUTO DEALER Reason for Call: Change in Mental Status (Seizure) - IV IV Inserted during AUTO DEALER?: No
[2018-04-09] MEDS ORDERED: Fosphenytoin 1,000 MG in Sodium Chloride 0.9% 50 ML IV STA (20:02)
--- NOTE | 2018-04-09 21:25 | CARD ---
APPROVED REPORT Date of service: 04/09/2018 EKG Measurement Heart [id number] <Conclusion> Atrial fibrillation with premature ventricular or aberrantly conducted complexes Septal infarct, age undetermined T wave abnormality, consider lateral ischemia or digitalis effect Prolonged QT Abnormal ECG
[2018-04-09 23:06] VITALS: BMI 26.9
[2018-04-09] MEDS ORDERED: Multivitamin (MVI) 10 ML, Thiamine 100 MG, Folic Acid 1 MG in Sodium Chloride 0.9% 1,00... IV ONE (23:15)
[2018-04-09] MEDS ORDERED: Sodium Chloride 0.9% 1,000 ML IV SCH (23:15)
--- NOTE | 2018-04-10 01:58 | CP.PCM.HP ---
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 At the time of my exam , patient drowsy (from alcohol intoxication and s/p 2 mg IV Ativan). Most HPI obtained from prior records, staff. Patient states that he had been trying to stop drinking, and then a seizure like activity. States that he also tripped and fell off the sidewalk yesterday, hitting his head and left ribs. Denies cp, sob, cough, neck pain, nausea, vomiting, abdominal pain, diarrhea, leg swelling , hematuria, dysuria, frequency. In ED, patient afebrile, hemodynamically stable. Patient had a seizure activity while in CAT scan, rapid response called. Given 2 mg IV Ativan. CAT abd pelvis showed right sided 2.1 cm right sided posterior perinephric hematoma. ICU consulted for further management of hematoma and alcohol withdrawal. ROS limited due to patient's intoxicated/s/p seizure state. 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 (7 years ago), seizures, alcohol dependence and withdrawal, and alcoholic dementia, afib on lopressor Home medications: denies Allergies: NKDA Past surgical hx: tracheostomy, b/l inguinal hernia repair Social Hx: reports that he smokes half a pack of cigarettes/day, drinks 3-4 large cans of beer/day, occasionally uses cocaine and marijuana Family Hx: Heart Disease and Diabetes Mellitus (both maternal and paternal sides ) Present on Admission - Present on Admission Any Indicators Present on Admission: No History of DVT/PE: No History of Uncontrolled Diabetes: No Urinary Catheter: No Decubitus Ulcer Present: No Review of Systems - Review of Systems Systems not reviewed;Unavailable: Intoxicated Past Patient History - Infectious Disease Hx of Infectious Diseases: None - Tetanus Immunizations Tetanus Immunization: Unknown - Past Social History Smoking Status: Heavy Smoker > 10 Cigarettes Daily - CARDIAC Hx Cardiac Disorders: Yes Hx Heart Attack: Yes Hx Hypertension: Yes - PULMONARY Hx Respiratory Disorders: Yes Hx Chronic Obstructive Pulmonary Disease (COPD): Yes Other/Comment: HX SMOKING - NEUROLOGICAL Hx Neurological Disorder: Yes HX Cerebrovascular Accident: Yes Hx Dementia: Yes Hx Seizures: Yes - HEENT Hx HEENT Problems: No - RENAL Hx Chronic Kidney Disease: No - ENDOCRINE/METABOLIC Hx Endocrine Disorders: No - HEMATOLOGICAL/ONCOLOGICAL Hx Blood Disorders: No - INTEGUMENTARY Hx Dermatological Problems: No - MUSCULOSKELETAL/RHEUMATOLOGICAL Hx Musculoskeletal Disorders: Yes Hx Falls: Yes Hx Fractures: Yes Hx Herniated Disk: Yes Hx Unsteady Gait: Yes - GASTROINTESTINAL Hx Gastrointestinal Disorders: Yes Other/Comment: HERNIA REPAIR - GENITOURINARY/GYNECOLOGICAL Hx Genitourinary Disorders: No - PSYCHIATRIC Hx Psychophysiologic Disorder: Yes Hx Substance Use: No - SURGICAL HISTORY Hx Surgeries: Yes - ANESTHESIA Hx Anesthesia: No Meds Allergies/Adverse Reactions: Allergies Allergy/AdvReac Type Severity Reaction Status Date / Time No Known Allergies Allergy Verified 04/09/18 15:54 Physical Exam - Constitutional Appears: Unkempt, Older Than Stated Age - Head Exam Head Exam: NORMOCEPHALIC - Eye Exam Eye Exam: EOMI, PERRL. absent: Conjunctival injection, Nystagmus, Scleral icterus Pupil Exam: NORMAL ACCOMODATION, PERRL. absent: Irregular, Miosis, Mydriatic, Unequal - ENT Exam ENT Exam: Mucous Membranes Moist - Neck Exam Neck exam: Positive for: Full Rom - Respiratory Exam Respiratory Exam: Clear to Auscultation Bilateral, NORMAL BREATHING PATTERN. absent: Accessory Muscle Use, Rhonchi, Wheezes, Stridor Additional comments: + right sided chest wall muscles mildly tender to touch - Cardiovascular Exam Cardiovascular Exam: +S1, +S2. absent: Systolic Murmur - GI/Abdominal Exam GI & Abdominal Exam: Normal Bowel Sounds, Soft. absent: Distended, Firm, Guarding, Mass, Organomegaly, Rebound, Rigid, Tenderness - Extremities Exam Extremities exam: Positive for: normal inspection. Negative for: calf tenderness, pedal edema - Back Exam Back exam: NORMAL INSPECTION - Neurological Exam Neurological exam: Alert, Oriented x3 - Psychiatric Exam Additional comments: drowsy - Skin Skin Exam: Normal Color, Warm Results - Vital Signs Recent Vital Signs: Last Vital Signs Temp 98.8 F 09/07/18 22:16 Pulse 88 04/09/18 22:20 Resp 19 04/09/18 22:20 BP 154/97 H 04/09/18 22:16 Pulse Ox 93 L 04/09/18 22:20 - Labs Result Diagrams: 04/09/18 16:39 04/09/18 16:39 Labs: Laboratory Results - last 24 hr 04/09/18 04/10/18 23:55 00:01 Troponin I 0.06 TSH 3rd Generation 0.76 Assessment & Plan - Assessment and Plan (Free Text) Assessment: 62 year old male with PMH alcohol abuse, frequent falls, NV (several years ago, denies stents), CVA (3 years ago), 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 Patient also found to have right posterior perinephric hematoma: Seizures: 2/2 likely alcohol withdrawal - rapid response called while patient was in CAT scan due to seizure activity, given 2 gm IV. - Given Cerebyx 1000 mg IV in ED - CIWA protocol, fall precautions, neuro checks, seizure precautions - banana bag - MVT, thiamine, folic acid daily - Ativan 2 mg q6 niraj, ativan 2 mg q2 prn - Monitor Right posterior perinephric hematoma: 2/2 likely frequent falls - Hgb 17.4 (baseline around 16). will repeat hgb at 3 AM. - hemodynamically stable - Head CT neg for acute findings - CT chest with IV contrast showed Left-sided nonacute rib fractures - CT abd pelvis shows posterior perinephric hematoma, 2.1 cm in thickness involving the right mid and lower pole level. There is some mild mass effect on the right kidney. No hydronephrosis. - Patient refused xray of L hand - fall precautions - monitor Afib: - patient has a history of afib, last discharge admission - 01/2018 - showed that patient was on metoprolol tartrate 50 mg PO BID. However, patient denies taking any medication. No anticoagulation likely due to history of frequent falls. - EKG shows afib at 88bpm, official read pending. - initial trop 0.07. f/u serial trops. will hold ASA in setting of perinephric hematoma. tsh, lipid panel, A1C. - started on lopressor 25 mg PO BID (holding parameters in place) - monitor Hx of HTN: - patient denies taking any meds at home - monitor GI PPX: pepcid DVT ppx: scds (hold in setting of perinephric hematoma) Case seen and discussed with Dr Hatfield. <Salina Hatfield - Last Filed: 04/10/18 07:36> Results - Vital Signs Recent Vital Signs: Last Vital Signs Temp 98.4 F 04/10/18 05:57 Pulse 104 H 04/10/18 06:54 Resp 18 04/10/18 05:53 BP 144/82 04/10/18 06:54 Pulse Ox 90 L 04/10/18 05:40 - Labs Result Diagrams: 04/10/18 03:30 04/10/18 03:30 Labs: Laboratory Results - last 24 hr 04/09/18 04/10/18 04/10/18 23:55 00:01 03:30 WBC 11.0 RBC 4.73 Hgb 15.5 Hct 43.7 MCV 92.4 MCH 32.8 MCHC 35.5 RDW 13.1 Plt Count 96 L MPV 10.1 Gran % 75.7 H Lymph % (Auto) 9.5 L [place] % (Auto) 14.3 H Eos % (Auto) 0.4 L Baso % (Auto) 0.1 Gran # 8.31 H Lymph # (Auto) 1.0 L [place] # (Auto) 1.6 H Eos # (Auto) 0.0 Baso # (Auto) 0.01 Sodium Potassium Chloride Carbon Dioxide Anion Gap BUN Creatinine Est GFR ( Amer) Est GFR (Non-Af Amer) Random Glucose Calcium Phosphorus Magnesium Total Bilirubin AST ALT Alkaline Phosphatase Troponin I 0.06 Total Protein Albumin Globulin Albumin/Globulin Ratio Triglycerides Cholesterol LDL Cholesterol Direct HDL Cholesterol TSH 3rd Generation 0.76 04/10/18 03:30 WBC RBC Hgb Hct MCV MCH MCHC RDW Plt Count MPV Gran % Lymph % (Auto) [place] % (Auto) Eos % (Auto) Baso % (Auto) Gran # Lymph # (Auto) [place] # (Auto) Eos # (Auto) Baso # (Auto) Sodium 129 L Potassium 3.1 L Chloride 89 L Carbon Dioxide 31 Anion Gap 12 BUN 8 Creatinine 0.6 L Est GFR ( Amer) > 60 Est GFR (Non-Af Amer) > 60 Random Glucose 154 H Calcium 8.6 Phosphorus 2.4 L Magnesium 1.9 Total Bilirubin 2.4 H AST 48 ALT 43 Alkaline Phosphatase 75 Troponin I Total Protein 6.7 Albumin 3.8 Globulin 2.9 Albumin/Globulin Ratio 1.3 Triglycerides 74 Cholesterol 186 LDL Cholesterol Direct 131 H HDL Cholesterol 44 TSH 3rd Generation Attending/Attestation - Attestation I have personally seen and examined this patient.: Yes I have fully participated in the care of the patient.: Yes I have reviewed all pertinent clinical information: Yes Notes (Text): 04/10/18 07:35 Patient was seen when he was in the ER in bed # 7. Agree with history,physical examination, assessment and plan.
[2018-04-10] MEDS ORDERED: Albuterol-Ipratrop 3 mg / 0.5 (3 ml) UD IH PRN (03:02)
[2018-04-10 03:47] LABS: BASO # 0.01 K/mm3 (0.0-2.0); BASO % 0.1 % (0.0-3.0); EOS % 0.4 % (1.5-5.0); GRAN # 8.31 (1.4-6.5); GRAN % 75.7 % (50.0-68.0); HEMOGLOBIN 15.5 g/dL (14.0-18.0); LYMPH % 9.5 % (22.0-35.0); MEAN CELL VOLUME 92.4 fl (80.0-105.0); MEAN CORPUSCULAR HEMOGLOBIN 32.8 pg (25.0-35.0); MEAN CORPUSCULAR HGB CONC 35.5 g/dl (31.0-37.0); MEAN PLATELET VOLUME 10.1 fl (7.0-11.0); MONO # 1.6 (0.1-0.6); MONO % 14.3 % (1.0-6.0); RBC 4.73 10^6/uL (3.5-6.1); RED CELL DISTRIBUTION WIDTH 13.1 % (11.5-14.5)
[2018-04-10 04:15] LABS: LDL CHOLESTEROL 131 mg/dL (0-129)
[2018-04-10 04:18] LABS: ALB/GLOB RATIO 1.3 (1.1-1.8); ALBUMIN 3.8 g/dL (3.0-4.8); ALT/SGPT 43 U/L (7-56); AST/SGOT 48 U/L (17-59); BLOOD UREA NITROGEN 8 mg/dL (7-21); CALCIUM 8.6 mg/dL (8.4-10.5); GFR NON-AFRICAN AMERICAN > 60; HDL CHOLESTEROL 44 mg/dL (29-60)
[2018-04-10] MEDS ORDERED: Potassium Chloride 20 mEq ER Tab PO STA (06:08)
[2018-04-10] MEDS ORDERED: Potassium & Sodium Phosphate PO ONE (06:09)
[2018-04-10] MEDS ORDERED: Potassium Phosphate 30 MMOLE in Dextrose 5% In Water 250 ML IVPB ONE ×2 (07:28→12:41)
[2018-04-10] MEDS: Albuterol-Ipratrop 3 mg / 0.5 (3 ml) UD IH SCH ×3 (08:07→20:00)
--- NOTE | 2018-04-10 08:07 | PN ---
DATE: 04/10/2018 MEDIA EXECUTIVE NOTE SUBJECTIVE: The patient is resting in bed, awake and responds appropriately. States that he is in no pain. Moving all extremities. The patient does not seem to be in active DTs at this time. Getting IV fluids. No respiratory distress. No cough, wheezing or chest congestion. No fever, chills, nausea or vomiting. PHYSICAL EXAMINATION: VITAL SIGNS: Note that his temperature is 98.4, his pulse is 104, respirations are 18 and BP is 144/82. SKIN: Warm and dry. HEENT: Head atraumatic, normocephalic. Eyes reactive to light. Ears, nose and throat seem to be within normal limits. NECK: Supple. No JVD. No thyroid enlargement. No lymph nodes. HEART: Has a regular rate and rhythm. Normal S1, S2 but tachycardic. LUNGS: Reveal good breath sounds bilaterally. ABDOMEN: Soft, slightly distended. Decreased bowel sounds. No pain to palpation. GENITALIA: Deferred. RECTAL: Deferred. MUSCULOSKELETAL: No joint deformities. EXTREMITIES: Reveal trace lower extremity edema. NEUROLOGIC: The patient is awake and alert. Moving all extremities. DATA: Laboratories reveal a white count of 11, hemoglobin of 15.5, hematocrit of 43.7 with platelets of 96,000. Sodium is 129, potassium 3.1, chloride 89 and CO2 of 31 with a BUN of 8, creatinine 0.6 and glucose of 154. IMPRESSION: As far as my impression, this patient has ethyl alcohol withdrawal and history of ethanol alcohol abuse presented with seizures and has hyponatremia as well as hypokalemia. The patient has a history of frequent falls myocardial infarction, cerebrovascular accident, subdural hematomas, traumatic brain injury, dementia, atrial fibrillation and is noted on CT scan on this admission to have a right perinephric hematoma. Also, has a history of hypertension. PLAN: As far as our plan, we will continue with normal saline IV, continue to neurologically observe the patient closely. At this time, the patient continues to get Ativan every 6 hours and p.r.n. The patient is on DuoNeb as a bronchodilator. He is also getting Lopressor for his blood pressure as well as nicotine patch and Pepcid. He is getting thiamine as well as multivitamin as well. The patient is being followed by Neurology and we will continue to treat aggressively along with the other consultants and primary care doctor. Miguel Morales MD
[2018-04-10] MEDS ORDERED: Potassium Chloride 20 mEq ER Tab PO ONE (09:00)
[2018-04-10] MEDS: Multivitamin Therapeutic Tab PO SCH (09:01)
--- NOTE | 2018-04-10 09:16 | RAD ---
Date of service: 04/09/2018 PROCEDURE: RIGHT RIB SERIES HISTORY: R sided rib pain COMPARISON: None available. TECHNIQUE: Two views the right ribs have been submitted for interpretation. FINDINGS: Nondisplaced fracture of the distal segments of the right 9th and 10th ribs is identified. IMPRESSION: Nondisplaced fractures right 9th and 10th ribs identified.
[2018-04-10 09:28] LABS: ALB/GLOB RATIO 1.3 (1.1-1.8); ALBUMIN 4.6 g/dL (3.0-4.8); ALT/SGPT 42 U/L (7-56); AST/SGOT 55 U/L (17-59); BLOOD UREA NITROGEN 8 mg/dL (7-21); CALCIUM 9.2 mg/dL (8.4-10.5); GFR NON-AFRICAN AMERICAN > 60
[2018-04-10 09:33] LABS: TROPONIN I 0.04 ng/mL
--- NOTE | 2018-04-10 12:23 | CARD ---
APPROVED REPORT Date of service: 04/10/2018 EKG Measurement Heart [id number] <Conclusion> Atrial fibrillation Septal infarct, age undetermined T wave abnormality, consider lateral ischemia or digitalis effect Prolonged QT Abnormal ECG
[2018-04-10] MEDS: Azithromycin 500MG/NS 250ml 500 MG/250 ML BAG IVPB SCH (13:44)
[2018-04-10] MEDS: cefTRIAXone 500 MG in Sodium Chloride 0.9% 50 ML IVPB SCH (13:45)
--- NOTE | 2018-04-10 14:26 | CT ---
Date of service: 04/09/2018 PROCEDURE: CT Chest, Abdomen and Pelvis with intravenous contrast HISTORY: rib tenderness, fall, etoh abuse COMPARISON: None available. TECHNIQUE: Helical CT of the chest, abdomen and pelvis was performed following intravenous contrast only per oral contrast was withheld as per referring physician request. Multiplanar reformatted datasets delete have been provided. IV dose administered: Omnipaque 350, 100 cc Radiation dose: Total exam DLP = 877.42 mGy-cm. This CT exam was performed using one or more of the following dose reduction techniques: Automated exposure control, adjustment of the mA and/or kV according to patient size, and/or use of iterative reconstruction technique. FINDINGS: CT CHEST WITH CONTRAST: LUNGS: Limited linear fit atelectasis or fibrosis in the right lower lobe base with some nodularity associated. No definite acute infiltrate bilaterally. Central airways appear clear. . MEDIASTINUM: Unremarkable. Normal caliber aorta and pulmonary arterial trunk. No aortic dissection. Mild cardiomegaly identified. LYMPH NODES: Unremarkable. PLEURA: Unremarkable. No pneumothorax. No pleural fluid. BONES: Nonacute inferior left rib fractures noted. OTHER FINDINGS: None. CT ABDOMEN AND PELVIS: LIVER: Unremarkable. No gross lesion or ductal dilatation. GALLBLADDER AND BILE DUCTS: Unremarkable. PANCREAS: Unremarkable. No gross lesion or ductal dilatation. SPLEEN: Unremarkable. ADRENALS: Left adrenal gland appears normal. The right adrenal gland harbors a 2.8 cm mass measuring 5 x 0.3 Hounsfield units. While this may still represent a benign adenoma, a malignancy is not excluded and follow-up MRI without contrast recommended for greater characterization. KIDNEYS AND URETERS: Left kidney appears grossly nonfocal. Evaluation the right kidney reveals perinephric reactive changes and a fluid collection measuring 2.1 cm greatest anteroposterior thickness primarily at the mid inferior levels. This is a hyperdense collections most compatible with a subcapsular hematoma impressing the mid to lower pole right kidney. Clinically correlate further. VASCULATURE: Mildly atherosclerotic nonaneurysmal abdominal aorta. BOWEL: Extensive sigmoid diverticulosis is appreciated which appears nonacute. No bowel obstruction identified throughout the large or small bowel and no definite pericolic or perienteric reactive change appreciable. Evaluation of the gastrointestinal tract is limited due the lack of oral contrast administration. APPENDIX: No CT evidence of appendicitis. Normal appendix. PERITONEUM: Unremarkable. No free fluid. No free air. LYMPH NODES: Unremarkable. No enlarged lymph nodes. BLADDER: Cystitis or neoplasm not excluded as the urinary bladder is markedly thickened but is not distended adequately either. REPRODUCTIVE: Minimal prostate enlargement. BONES: No acute fracture. OTHER FINDINGS: None. IMPRESSION: 1. Fibrosis or possible linear atelectasis right lower lobe base. Cardiomegaly. Chest CT component otherwise appears nonacute. Nonacute left rib fractures. 2. 2.8 cm right adrenal mass. Follow-up MRI is advised to exclude malignancy though this may simply represent a benign adrenal adenoma. The appears indeterminate by the current examination. 3. Right perinephric reaction and subcapsular hematoma identified. No fracture identified throughout the abdomen or pelvis. Concordant preliminary report from [facility], 04/09/2018.
[2018-04-10] MEDS ORDERED: Dextrose 5%/0.9% NS 1,000 ML IV SCH (16:15)
--- NOTE | 2018-04-10 17:30 | CP.PCM.CON ---
History of Present Illness - History of Present Illness History of Present Illness: is a 62 yo male with a pmh of alcohol abuse for many years, and seizures that are thought to be secondary to alcohol withdrawal. The day before he was brought into the Er, he drank heavily to the point that he fell and injured his ribs and left hand. He has been on antiepileptics and he is chronically noncompliant. The day he had the seizure, he was drinking alcohol, and he had a generalized seizure with urinary incontinence. When he came to, he was alert aware, oriented times three and following commands. ROS: unable to obtain. 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 CN 2-12 normal. Can name and repeat but does so with a very soft voice. no facial asymmetry motor: Strength is normal and equal in all muscle groups Sensory: no deficits Cerebellar: bilateral high amplitude resting tremor +2 dtr ul and ll bl. Toes downgoing no clonus. Gait not tested due to patients mental status. Past Patient History - Infectious Disease Hx of Infectious Diseases: None - Tetanus Immunizations Tetanus Immunization: Unknown - Past Social History Smoking Status: Heavy Smoker > 10 Cigarettes Daily - CARDIAC Hx Cardiac Disorders: Yes Hx Heart Attack: Yes Hx Hypertension: Yes - PULMONARY Hx Respiratory Disorders: Yes Hx Chronic Obstructive Pulmonary Disease (COPD): Yes Other/Comment: HX SMOKING - NEUROLOGICAL Hx Neurological Disorder: Yes HX Cerebrovascular Accident: Yes Hx Dementia: Yes Hx Seizures: Yes - HEENT Hx HEENT Problems: No - RENAL Hx Chronic Kidney Disease: No - ENDOCRINE/METABOLIC Hx Endocrine Disorders: No - HEMATOLOGICAL/ONCOLOGICAL Hx Blood Disorders: No - INTEGUMENTARY Hx Dermatological Problems: No - MUSCULOSKELETAL/RHEUMATOLOGICAL Hx Musculoskeletal Disorders: Yes Hx Falls: Yes Hx Fractures: Yes Hx Herniated Disk: Yes Hx Unsteady Gait: Yes - GASTROINTESTINAL Hx Gastrointestinal Disorders: Yes Other/Comment: HERNIA REPAIR - GENITOURINARY/GYNECOLOGICAL Hx Genitourinary Disorders: No - PSYCHIATRIC Hx Psychophysiologic Disorder: Yes Hx Substance Use: No - SURGICAL HISTORY Hx Surgeries: Yes - ANESTHESIA Hx Anesthesia: No Meds Allergies/Adverse Reactions: Allergies Allergy/AdvReac Type Severity Reaction Status Date / Time No Known Allergies Allergy Verified 04/09/18 15:54 - Medications Medications: Current Medications Albuterol/Ipratropium (Duoneb 3 Mg/0.5 Mg (3 Ml) Ud) 3 ml IH [id number] ARABELLA Last Admin: 04/10/18 13:59 Dose: 3 ml Albuterol/Ipratropium (Duoneb 3 Mg/0.5 Mg (3 Ml) Ud) 3 ml IH [id number] PRN PRN Reason: Shortness of Breath Famotidine (Pepcid) 40 mg PO HS [facility]ELL[facility] Folic Acid (Folic Acid) 1 mg PO DAILY [facility] Last Admin: 04/10/18 09:02 Dose: 1 mg Azithromycin (Zithromax 500mg In Ns) 500 mg in 250 mls @ 167 mls/hr IVPB DAILY [facility] PRN Reason: Protocol Last Admin: 04/10/18 13:44 Dose: 167 mls/hr Ceftriaxone Sodium 500 mg/ (Sodium Chloride) 50 mls @ 100 mls/hr IVPB Q24H [facility]ABELLA PRN Reason: Protocol Last Admin: 04/10/18 13:45 Dose: 100 mls/hr Potassium Phosphate 30 mmole/ (Dextrose) 260 mls @ 42.5 mls/hr IVPB ONCE ONE Stop: 04/10/18 18:48 Last Admin: 04/10/18 13:44 Dose: 42.5 mls/hr Dextrose/Sodium Chloride (Dextrose 5%/0.9% Ns 1000 Ml) 1,000 mls @ 75 mls/hr IV [id number] ARABELLA Last Admin: 04/10/18 16:25 Dose: 75 mls/hr Lorazepam (Ativan) 2 mg IVP Q6H [facility] PRN Reason: Protocol Last Admin: 04/10/18 14:38 Dose: 2 mg Lorazepam (Ativan) 2 mg IVP Q2 PRN; Protocol PRN Reason: Symptoms of alcohol withdrawl Last Admin: 04/10/18 09:17 Dose: 2 mg Methylprednisolone (Solu-Medrol) 40 mg IVP Q12 [facility] Metoprolol Tartrate (Lopressor) 25 mg PO BRKDIN [facility] Last Admin: 04/10/18 06:54 Dose: 25 mg Multivitamins (Thera Tab) 1 tab PO 0800 [facility] Last Admin: 04/10/18 09:01 Dose: 1 tab Nicotine (Nicoderm Cq) 1 patch TD DAILY [facility] Last Admin: 04/10/18 09:01 Dose: 1 patch Thiamine HCl (Vitamin B1 Tab) 100 mg PO DAILY [facility] Last Admin: 04/10/18 09:01 Dose: 100 mg Results - Vital Signs Recent Vital Signs: Last Vital Signs Temp 98.4 F 04/10/18 05:57 Pulse 91 H 04/10/18 15:31 Resp 28 H 04/10/18 14:50 BP 134/102 H 04/10/18 09:00 Pulse Ox 100 04/10/18 14:50 - Labs Result Diagrams: 04/10/18 03:30 04/10/18 09:00 Labs: Laboratory Results - last 24 hr 04/09/18 04/10/18 04/10/18 23:55 00:01 03:30 WBC 11.0 RBC 4.73 Hgb 15.5 Hct 43.7 MCV 92.4 MCH 32.8 MCHC 35.5 RDW 13.1 Plt Count 96 L MPV 10.1 Gran % 75.7 H Lymph % (Auto) 9.5 L [place] % (Auto) 14.3 H Eos % (Auto) 0.4 L Baso % (Auto) 0.1 Gran # 8.31 H Lymph # (Auto) 1.0 L [place] # (Auto) 1.6 H Eos # (Auto) 0.0 Baso # (Auto) 0.01 Sodium Potassium Chloride Carbon Dioxide Anion Gap BUN Creatinine Est GFR ( Amer) Est GFR (Non-Af Amer) Random Glucose Calcium Phosphorus Magnesium Total Bilirubin AST ALT Alkaline Phosphatase Troponin I 0.06 Total Protein Albumin Globulin Albumin/Globulin Ratio Triglycerides Cholesterol LDL Cholesterol Direct HDL Cholesterol TSH 3rd Generation 0.76 04/10/18 04/10/18 03:30 09:00 WBC RBC Hgb Hct MCV MCH MCHC RDW Plt Count MPV Gran % Lymph % (Auto) [place] % (Auto) Eos % (Auto) Baso % (Auto) Gran # Lymph # (Auto) [place] # (Auto) Eos # (Auto) Baso # (Auto) Sodium 129 L 132 Potassium 3.1 L 3.3 L Chloride 89 L 88 L Carbon Dioxide 31 34 H Anion Gap 12 13 BUN 8 8 Creatinine 0.6 L 0.6 L Est GFR ( Amer) > 60 > 60 Est GFR (Non-Af Amer) > 60 > 60 Random Glucose 154 H 114 H Calcium 8.6 9.2 Phosphorus 2.4 L 2.3 L Magnesium 1.9 2.0 Total Bilirubin 2.4 H 3.0 H AST 48 55 ALT 43 42 Alkaline Phosphatase 75 90 Troponin I 0.04 D Total Protein 6.7 8.0 Albumin 3.8 4.6 Globulin 2.9 3.4 Albumin/Globulin Ratio 1.3 1.3 Triglycerides 74 Cholesterol 186 LDL Cholesterol Direct 131 H HDL Cholesterol 44 TSH 3rd Generation Assessment & Plan - Assessment and Plan (Free Text) Assessment: Ct head: shows profound encephalomalacia in bilateral frontal lobes with profound atrophy. A/P: 62 yr old male who has severe alcoholism, with neuroimaging showing possible old subdurals/strokes, and with epilepsy most likely secondary to alcohol withdrawal, and old hemorrhagic ischemic events. He will need antiepileptic medications but is noncompliant with all of his medications. Plan: 1. Load with IV depakote 1000 mg now and continue on 500 mg IV bid. 2. EEg thursday Case discussed with Thank you Dr. narvaez
[2018-04-10] MEDS: MethylPREDNISolone 40 mg Vial IVP SCH (21:28)
[2018-04-10 22:10] LABS: URINE BILIRUBIN NEGATIVE (NEGATIVE); URINE BLOOD MODERATE (NEGATIVE); URINE GLUCOSE (UA) NEGATIVE (NEGATIVE); URINE LEUKOCYTE ESTERASE SMALL Leu/uL (NEGATIVE); URINE PROTEIN 30 mg/dL (<30 mg/dL)
[2018-04-10 22:34] LABS: URINE APPEARANCE CLEAR (CLEAR); URINE COLOR YELLOW (YELLOW)
[2018-04-10 22:44] LABS: URINE BACTERIA NEG (NEG); URINE WBC 25 - 30 /hpf (0-6)
[2018-04-11] MEDS: Albuterol-Ipratrop 3 mg / 0.5 (3 ml) UD IH SCH ×4 (01:31→20:14)
[2018-04-11] MEDS ORDERED: Metoprolol 1 mg/ml Inj IVP ONE (03:31)
[2018-04-11 06:13] LABS: BASO # 0.01 K/mm3 (0.0-2.0); BASO % 0.1 % (0.0-3.0); GRAN # 10.01 (1.4-6.5); GRAN % 88.5 % (50.0-68.0); HEMOGLOBIN 16.3 g/dL (14.0-18.0); LYMPH # 0.5 (1.2-3.4); LYMPH % 4.8 % (22.0-35.0); MEAN CELL VOLUME 98.4 fl (80.0-105.0); MEAN CORPUSCULAR HEMOGLOBIN 33.3 pg (25.0-35.0); MEAN CORPUSCULAR HGB CONC 33.9 g/dl (31.0-37.0); MEAN PLATELET VOLUME 10.6 fl (7.0-11.0); MONO # 0.8 (0.1-0.6); MONO % 6.6 % (1.0-6.0); PLATELET COUNT 114 10^3/uL (120.0-450.0); RBC 4.89 10^6/uL (3.5-6.1); WHITE BLOOD COUNT 11.3 10^3/ul (4.5-11.0)
[2018-04-11 06:45] LABS: ALB/GLOB RATIO 1.3 (1.1-1.8); ALT/SGPT 36 U/L (7-56); AST/SGOT 46 U/L (17-59); BLOOD UREA NITROGEN 8 mg/dL (7-21); CALCIUM 9.6 mg/dL (8.4-10.5); GFR NON-AFRICAN AMERICAN > 60
[2018-04-11] MEDS ORDERED: Multivitamin (MVI) 10 ML, Thiamine 100 MG, Folic Acid 1 MG in Sodium Chloride 0.9% 1,00... IV ONE (07:43)
[2018-04-11] MEDS ORDERED: Divalproex 500 mg DR(BID formulation) PO ONE (07:45)
[2018-04-11] MEDS ORDERED: Valproate 1,000 MG in Sodium Chloride 0.9% 100 ML IVPB ONE (07:55)
--- NOTE | 2018-04-11 08:13 | PN ---
DATE: 04/11/2018 DRAWER UPFITTER NOTE SUBJECTIVE: The patient is resting, responding appropriately. No complaints of increased pain. Moving all extremities. The patient is on IV fluids. No active DTs and no complaints of shortness of breath, cough, wheezing, chest congestion. No nausea or vomiting. PHYSICAL EXAMINATION: VITAL SIGNS: Note that his temperature is 98.6, pulse is 85, respirations are 22 and BP is 154/84. O2 saturation is 98%. HEENT: Head is atraumatic, normocephalic. Eyes reactive to light. Ears, nose and throat seem to be within normal limits. NECK: Supple. No JVD. No thyroid enlargement. No lymph nodes. HEART: Has a regular rate and rhythm. Normal S1, S2. LUNGS: Reveal good breath sounds. ABDOMEN: Relatively soft, a little to no bowel sounds. GENITALIA: Deferred. RECTAL: Deferred. MUSCULOSKELETAL: No joint deformities. EXTREMITIES: Reveal trace lower extremity edema. NEUROLOGICAL: Grossly intact. DATA: Laboratories reveal a white count of 11.3, hemoglobin of 16.3, hematocrit 48.1 with platelets of 114,000. Sodium is 137, potassium 4.9, chloride 97, CO2 of 30, BUN of 80, creatinine of 0.7 and glucose of 184. IMPRESSION: The patient presented with ethyl alcohol withdrawal and a history of ethyl alcohol abuse. He also has seizures and has corrected hyponatremia and hypokalemia and a history of myocardial infarction, cerebrovascular accident, subdural hematoma, traumatic brain injury, dementia, atrial fibrillation and is noted to have a right perinephric hematoma as well as a history of hypertension. PLAN We will continue IV fluids and Neurology is following closely. The patient is being treated with Ativan, DuoNeb, Lopressor, nicotine patch, Pepcid, thiamine, multivitamins and we will continue to follow closely along with the other consultants and the primary care doctor. Miguel Morales MD
[2018-04-11] MEDS: Multivitamin Therapeutic Tab PO SCH (08:20)
[2018-04-11] MEDS: Folic Acid 1 MG, Thiamine 100 MG, Multivitamin (MVI) 10 ML in Dextrose 5% In Water 1,00... IV SCH (09:48)
[2018-04-11] MEDS: Azithromycin 500MG/NS 250ml 500 MG/250 ML BAG IVPB SCH (09:52)
[2018-04-11] MEDS: MethylPREDNISolone 40 mg Vial IVP SCH ×2 (09:53→21:28)
[2018-04-11] MEDS ORDERED: Divalproex 500 mg DR(BID formulation) PO SCH (10:00)
[2018-04-11 10:06] LABS: ANISOCYTOSIS SLIGHT; LYMPHOCYTE 8 % (22.0-35.0); MONOCYTE 2 % (1.0-6.0); NEUTROPHIL 90 % (50.0-70.0); PLATELET ESTIMATE SL.DEC (NORMAL)
--- NOTE | 2018-04-11 10:12 | CP.PCM.PN ---
<Bubba Shaw - Last Filed: 04/11/18 12:06> Subjective - Date & Time of Evaluation Date of Evaluation: 04/11/18 Time of Evaluation: 08:12 - Subjective Subjective: Bubba Shaw PGY2 IM Progress Note for Dr. Garcia Patient was seen and examined at bedside. He is alert but not oriented and is making non-purposeful moves/words. The patient does not appear agitated at this time. There were no acute overnight events. Objective - Vital Signs/Intake and Output Vital Signs (last 24 hours): Temp Pulse Resp BP Pulse Ox 98.6 F 76 22 172/121 H 98 04/10/18 16:30 04/11/18 08:19 04/11/18 06:30 04/11/18 08:19 04/11/18 06:30 Intake and Output: 04/11/18 04/11/18 06:59 18:59 Intake Total 1875 Output Total 200 Balance 1675 - Medications Medications: Current Medications Albuterol/Ipratropium (Duoneb 3 Mg/0.5 Mg (3 Ml) Ud) 3 ml IH [id number] ARABELLA Last Admin: 04/11/18 08:06 Dose: 3 ml Albuterol/Ipratropium (Duoneb 3 Mg/0.5 Mg (3 Ml) Ud) 3 ml IH [id number] PRN PRN Reason: Shortness of Breath Clonidine HCl (Catapres) 0.1 mg PO Q6 PRN PRN Reason: Agitation Last Admin: 04/11/18 08:19 Dose: 0.1 mg Famotidine (Pepcid) 40 mg PO HS [facility] Last Admin: 04/10/18 21:31 Dose: 40 mg Folic Acid (Folic Acid) 1 mg PO DAILY [facility]A Last Admin: 04/11/18 09:52 Dose: 1 mg Azithromycin (Zithromax 500mg In Ns) 500 mg in 250 mls @ 167 mls/hr IVPB DAILY ARABELLA PRN Reason: Protocol Last Admin: 04/11/18 09:52 Dose: 167 mls/hr Ceftriaxone Sodium 500 mg/ (Sodium Chloride) 50 mls @ 100 mls/hr IVPB Q24H ARABELLA PRN Reason: Protocol Last Admin: 04/10/18 13:45 Dose: 100 mls/hr Folic Acid 1 mg/ Thiamine HCl 100 mg/ Multivitamins/Vitamin C 10 ml/ Dextrose 1 ,011.2 mls @ 100 mls/hr IV .Q10H7M [facility] Last Admin: 04/11/18 09:48 Dose: 100 mls/hr Valproate Sodium 500 mg/ (Sodium Chloride) 105 mls @ 100 mls/hr IVPB Q12 [facility] Lorazepam (Ativan) 2 mg IVP Q3 PRN; Protocol PRN Reason: Symptoms of alcohol withdrawl Lorazepam (Ativan) 2 mg IVP Q4 ARABELLA PRN Reason: Protocol Last Admin: 04/11/18 08:21 Dose: 2 mg Methylprednisolone (Solu-Medrol) 40 mg IVP Q12 [facility] Last Admin: 04/11/18 09:53 Dose: 40 mg Metoprolol Tartrate (Lopressor) 50 mg PO BRKDIN [facility] Multivitamins (Thera Tab) 1 tab PO 0800 [facility] Last Admin: 04/11/18 08:20 Dose: 1 tab Nicotine (Nicoderm Cq) 1 patch TD DAILY [facility] Last Admin: 04/11/18 09:52 Dose: 1 patch Thiamine HCl (Vitamin B1 Tab) 100 mg PO DAILY [facility] Last Admin: 04/11/18 09:52 Dose: 100 mg - Labs Labs: 04/11/18 05:00 04/11/18 05:00 PT 11.8 SECONDS (9.4-12.5) 04/09/18 16:39 INR 1.03 04/09/18 16:39 APTT 34.7 Seconds (25.1-36.5) 04/09/18 16:39 - Constitutional Appears: Non-toxic, No Acute Distress, Unkempt, Confused, Chronically Ill - Head Exam Head Exam: NORMOCEPHALIC. absent: ATRAUMATIC (abrasion over right parietal region) - Eye Exam Eye Exam: Normal appearance, PERRL - ENT Exam ENT Exam: Mucous Membranes Dry - Neck Exam Neck Exam: Normal Inspection - Respiratory Exam Respiratory Exam: Rhonchi, Wheezes - Cardiovascular Exam Cardiovascular Exam: RRR, +S1, +S2 - GI/Abdominal Exam GI & Abdominal Exam: Soft. absent: Distended, Tenderness - Extremities Exam Extremities Exam: Full ROM - Back Exam Back Exam: NORMAL INSPECTION - Neurological Exam Neurological Exam: Altered, Awake. absent: Oriented x3 - Psychiatric Exam Psychiatric exam: Normal Mood - Skin Skin Exam: Warm Assessment and Plan - Assessment and Plan (Free Text) Assessment: 62 year old male with a PMH of ETOH abuse, frequent falls, DC (several years ago , denies stents), CVA (3 years ago), traumatic brain injury with multiple subdural hematomas (8 years ago), significant b/l encephalomalacia, seizures, alcoholic dementia, and afib who presented s/p seizure activity likely 2/2 alcohol withdrawal. Patient also found to have right posterior perinephric hematoma due to fall. He is in ICU for ETOH withdrawal and seizure precautions. Plan: 1. Seizures likely 2/2 ETOH withdrawals - Depakote 1000mg x1, cont Depakote 500mg BID - Ativan 2mg IVP q4 arabella and PRN dose - banana bag w/ MV, folic acid and thiamine daily - cont Lopressor for HTN - clonidine added for BP management - CIWA protocol - NPO due to aspiration risk - aspiration precautions - fall risk high, precautions - seizure precautions 2. COPD exacerbation - cont Ropcehin/Zithromax - Duonebs ARABELLA and PRN - solu-medrol 40q12, cont to taper 3. UTI - cont Rocephin - urine cx ordered 4. Hx tobacco use - nicoderm 5. PPX/Diet - pepcid for GI ppx - SCDs for DVT ppx - NPO due to aspiration risk Case was reviewed and discussed with attending, Dr. Garcia <Chauncey Garcia - Last Filed: 04/11/18 13:46> Objective - Vital Signs/Intake and Output Vital Signs (last 24 hours): Temp Pulse Resp BP Pulse Ox 98.6 F 78 22 172/121 H 98 04/10/18 16:30 04/11/18 10:00 04/11/18 06:30 04/11/18 08:19 04/11/18 06:30 Intake and Output: 04/11/18 04/11/18 06:59 18:59 Intake Total 1875 Output Total 200 Balance 1675 - Medications Medications: Current Medications Albuterol/Ipratropium (Duoneb 3 Mg/0.5 Mg (3 Ml) Ud) 3 ml IH [id number] ARABELLA Last Admin: 04/11/18 13:26 Dose: 3 ml Albuterol/Ipratropium (Duoneb 3 Mg/0.5 Mg (3 Ml) Ud) 3 ml IH [id number] PRN PRN Reason: Shortness of Breath Clonidine HCl (Catapres) 0.1 mg PO Q6 PRN PRN Reason: Agitation Last Admin: 04/11/18 08:19 Dose: 0.1 mg Famotidine (Pepcid) 40 mg PO HS [facility] Last Admin: 04/10/18 21:31 Dose: 40 mg Folic Acid (Folic Acid) 1 mg PO DAILY [facility] Last Admin: 04/11/18 09:52 Dose: 1 mg Azithromycin (Zithromax 500mg In Ns) 500 mg in 250 mls @ 167 mls/hr IVPB DAILY ARABELLA PRN Reason: Protocol Last Admin: 04/11/18 09:52 Dose: 167 mls/hr Ceftriaxone Sodium 500 mg/ (Sodium Chloride) 50 mls @ 100 mls/hr IVPB Q24H [facility] PRN Reason: Protocol Last Admin: 04/11/18 11:54 Dose: 100 mls/hr Folic Acid 1 mg/ Thiamine HCl 100 mg/ Multivitamins/Vitamin C 10 ml/ Dextrose 1 ,011.2 mls @ 100 mls/hr IV .Q10H7M [facility] Last Admin: 04/11/18 09:48 Dose: 100 mls/hr Valproate Sodium 500 mg/ (Sodium Chloride) 105 mls @ 100 mls/hr IVPB Q12 [facility] Lorazepam (Ativan) 2 mg IVP Q3 PRN; Protocol PRN Reason: Symptoms of alcohol withdrawl Lorazepam (Ativan) 2 mg IVP Q4 ARABELLA PRN Reason: Protocol Last Admin: 04/11/18 11:55 Dose: 2 mg Methylprednisolone (Solu-Medrol) 40 mg IVP Q12 [facility] Last Admin: 04/11/18 09:53 Dose: 40 mg Metoprolol Tartrate (Lopressor) 50 mg PO BRKDIN [facility] Multivitamins (Thera Tab) 1 tab PO 0800 [facility] Last Admin: 04/11/18 08:20 Dose: 1 tab Nicotine (Nicoderm Cq) 1 patch TD DAILY [facility] Last Admin: 04/11/18 09:52 Dose: 1 patch Thiamine HCl (Vitamin B1 Tab) 100 mg PO DAILY [facility] Last Admin: 04/11/18 09:52 Dose: 100 mg - Labs Labs: 04/11/18 05:00 04/11/18 05:00 PT 11.8 SECONDS (9.4-12.5) 04/09/18 16:39 INR 1.03 04/09/18 16:39 APTT 34.7 Seconds (25.1-36.5) 04/09/18 16:39 Attending/Attestation - Attestation I have personally seen and examined this patient.: Yes I have fully participated in the care of the patient.: Yes I have reviewed all pertinent clinical information, including history, physical exam and plan: Yes Notes (Text): 04/11/18 13:39 attending note; patient seen and examined with resident In ICU. patient is alert and awake. Confused. Not able to answer questions properly. Patient is a 62 year old male with a PMH of ETOH abuse, frequent falls, CVA (3 years ago), traumatic brain injury with multiple subdural hematomas (8 years ago ), significant Bilateral encephalomalacia, seizures, alcoholic dementia, and afib who presented s/p seizure activity likely 2/2 alcohol withdrawal. no seizure like activity since admission. Alcohol withdrawal symptoms; continue to monitor closely in ICU. Continue IV banana bag. Continue IV Ativan. on CIWA protocol. Seizure precaution. Fall precaution. Aspiration precautions ordered. Patient is nothing by mouth to completely awake. Status post fall or injury;Patient also found to have right posterior perinephric hematoma due to fall. CT abdomen and pelvis also showed adrenal nodule. Needs MRI as outpatient or when stable. X-ray showed nondisplaced fracture of right ninth and 10th rib. Allergies atelectasis/bronchitis; continue Rocephin and Zithromax. seizure/encephalomalacia; neurology evaluation appreciated; started on Depakote. chronic A. fib; rate controlled with metoprolol. Patient was not on any anticoagulation due to multiple falls, history of subdural hematoma and noncompliance with follow-up. We will get palliative care nurse evaluation for advanced directive. Prognosis is poor secondary to continuous alcohol abuse and noncompliance with follow-up.
[2018-04-11] MEDS: cefTRIAXone 500 MG in Sodium Chloride 0.9% 50 ML IVPB SCH (11:54)
[2018-04-11] MEDS: Valproate 500 MG in Sodium Chloride 0.9% 100 ML IVPB SCH (21:43)
[2018-04-12] MEDS: Albuterol-Ipratrop 3 mg / 0.5 (3 ml) UD IH SCH ×4 (02:26→19:50)
[2018-04-12] MEDS: Folic Acid 1 MG, Thiamine 100 MG, Multivitamin (MVI) 10 ML in Dextrose 5% In Water 1,00... IV SCH (03:16)
--- NOTE | 2018-04-12 06:23 | CP.PCM.PN ---
<Nehal Benitez - Last Filed: 04/12/18 15:40> Subjective - Date & Time of Evaluation Date of Evaluation: 04/12/18 Time of Evaluation: 07:10 - Subjective Subjective: PGY-1 Nehal Benitez D.O. Medicine progress note for Dr. Pedersen's service: Patient is seen and examined this morning. No over night events reported, including seizure-activity and agitation. Patient is sleeping. He is able to be awoken. He states he feels OK. He denies nausea and pain. He is calm and able to follow commands. Objective - Vital Signs/Intake and Output Vital Signs (last 24 hours): Temp Pulse Resp BP Pulse Ox 97.7 F 71 17 154/111 H 99 04/12/18 04:00 04/12/18 05:08 04/12/18 02:10 04/12/18 05:08 04/12/18 02:10 Intake and Output: 04/11/18 04/12/18 18:59 06:59 Intake Total 1400 Balance 1400 - Medications Medications: Current Medications Albuterol/Ipratropium (Duoneb 3 Mg/0.5 Mg (3 Ml) Ud) 3 ml IH [id number] ARABELLA Last Admin: 04/12/18 02:26 Dose: Not Given Albuterol/Ipratropium (Duoneb 3 Mg/0.5 Mg (3 Ml) Ud) 3 ml IH [id number] PRN PRN Reason: Shortness of Breath Clonidine HCl (Catapres) 0.1 mg PO Q6 PRN PRN Reason: Agitation Last Admin: 04/12/18 05:08 Dose: 0.1 mg Famotidine (Pepcid) 40 mg PO HS [facility] Last Admin: 04/11/18 21:30 Dose: 40 mg Folic Acid (Folic Acid) 1 mg PO DAILY [facility] Last Admin: 04/11/18 09:52 Dose: 1 mg Azithromycin (Zithromax 500mg In Ns) 500 mg in 250 mls @ 167 mls/hr IVPB DAILY ARABELLA PRN Reason: Protocol Last Admin: 04/11/18 09:52 Dose: 167 mls/hr Ceftriaxone Sodium 500 mg/ (Sodium Chloride) 50 mls @ 100 mls/hr IVPB Q24H [facility] PRN Reason: Protocol Last Admin: 04/11/18 11:54 Dose: 100 mls/hr Folic Acid 1 mg/ Thiamine HCl 100 mg/ Multivitamins/Vitamin C 10 ml/ Dextrose 1 ,011.2 mls @ 100 mls/hr IV .Q10H7M [facility] Last Admin: 04/12/18 03:16 Dose: 100 mls/hr Valproate Sodium 500 mg/ (Sodium Chloride) 105 mls @ 100 mls/hr IVPB Q12 [facility] Last Admin: 04/11/18 21:43 Dose: 100 mls/hr Lorazepam (Ativan) 2 mg IVP Q3 PRN; Protocol PRN Reason: Symptoms of alcohol withdrawl Lorazepam (Ativan) 2 mg IVP Q4 [facility]A PRN Reason: Protocol Last Admin: 04/12/18 03:30 Dose: 2 mg Methylprednisolone (Solu-Medrol) 40 mg IVP Q12 [facility] Last Admin: 04/11/18 21:28 Dose: 40 mg Metoprolol Tartrate (Lopressor) 50 mg PO BRKDIN [facility] Last Admin: 04/11/18 16:35 Dose: 50 mg Multivitamins (Thera Tab) 1 tab PO 0800 [facility] Last Admin: 04/11/18 08:20 Dose: 1 tab Nicotine (Nicoderm Cq) 1 patch TD DAILY [facility] Last Admin: 04/11/18 09:52 Dose: 1 patch Thiamine HCl (Vitamin B1 Tab) 100 mg PO DAILY [facility] Last Admin: 04/11/18 09:52 Dose: 100 mg - Labs Labs: 04/11/18 05:00 04/11/18 05:00 PT 11.8 SECONDS (9.4-12.5) 04/09/18 16:39 INR 1.03 04/09/18 16:39 APTT 34.7 Seconds (25.1-36.5) 04/09/18 16:39 - Constitutional Appears: No Acute Distress, Older Than Stated Age - Head Exam Head Exam: ATRAUMATIC, NORMAL INSPECTION, NORMOCEPHALIC - Eye Exam Eye Exam: EOMI, Normal appearance - ENT Exam ENT Exam: Mucous Membranes Moist, Normal Exam - Neck Exam Neck Exam: Normal Inspection - Respiratory Exam Respiratory Exam: Wheezes, NORMAL BREATHING PATTERN - Cardiovascular Exam Cardiovascular Exam: REGULAR RHYTHM, +S1, +S2 - GI/Abdominal Exam GI & Abdominal Exam: Soft. absent: Tenderness - Rectal Exam Rectal Exam: Deferred - Extremities Exam Extremities Exam: Normal Capillary Refill, Normal Inspection. absent: Pedal Edema - Back Exam Back Exam: NORMAL INSPECTION - Neurological Exam Neurological Exam: Alert, Awake, CN II-XII Intact, Oriented x3. absent: Motor Sensory Deficit Neuro motor strength exam: Left Upper Extremity: 5, Right Upper Extremity: 5, Left Lower Extremity: 5, Right Lower Extremity: 5 Additional comments: b/l resting tremors of UEs - Psychiatric Exam Psychiatric exam: Flat Affect - Skin Skin Exam: Dry, Normal Color, Warm Assessment and Plan - Assessment and Plan (Free Text) Assessment: Patient is a 62 yo male with a history of alcohol use disorder with subsequent cirrhosis, dementia, and w/d seizures, TBI with SDHs, CVA, NV, COPD, and A fib who presented after a seizure and fall. According to the ED, a bystander witnessed the generalized seizure with urinary incontinence. Patient also had a witnessed clonic-tonic seizure while in CT- given 2 mg Ativan. Patient was found to have right posterior perinephric hematoma. He was initially managed in the ICU for ETOH withdrawal and seizure precautions. He is now transferred to telemetry. Plan: Seizures- 2/2 alcohol w/d +/- TBI/CVA, chronic noncompliance with antiseizure medications and alcohol cessation - BAL 131 - CT head: profound encephalomalacia in bilateral frontal lobes with profound atrophy - Rib XR: Nondisplaced fractures right 9th and 10th ribs identified. - CT chest/abd/pelvis: Nonacute left rib fractures. - Seizure precautions - Loaded with Depakote 1000 mg on admsision - Depakote 500 mg IV BID - Ativan 2 mg IV q6hrs- continue taper - CIWA protocol- Ativan 2 mg IV q3 PRN - Received banana bag - MV, folic acid and thiamine daily - F/u EEG - PT - ST - ICU consulted (Nikita) - Neurology consulted (Minh) COPD exacerbation - CT chest/abd/pelvis: Fibrosis or possible linear atelectasis right lower lobe base. Cardiomegaly. Chest CT component otherwise appears nonacute. - Azithromycin 500 mg IV daily (started 04/10) - Rocephin 500 mg IV daily (started 04/10) - Vancomycin 1 g IV q12hrs (started 04/12) - F/u vanc trough - Duoneb q6hrs ARABELLA, q4hrs PRN SOB - Solu-medrol 40 mg IV q12hrs- taper UTI - Urine Cx- GPC - Vancomycin 1 g IV q12hrs (started 04/12) - F/u vanc trough HTN- SBP - Lopressor 50 mg PO BID - Norvasc 5 mg PO daily - Clonidine 0.1 mg PO q6hrs PRN Perinephric hematoma, R posterior- 2/2 fall - CT chest/abd/pelvis: Right perinephric reaction and subcapsular hematoma identified. Adrenal mass, R- incidental finding - CT chest/abd/pelvis: 2. 2.8 cm right adrenal mass. Follow-up MRI is advised to exclude malignancy though this may simply represent a benign adrenal adenoma. The appears indeterminate by the current examination. Tobacco use disorder - Nicotine patch daily IVF: not indicated GI ppx: Pepcid 40 mg PO QHS VTE ppx: SCDs Diet: Heart healthy Code status: full code Case was discussed with attending, Dr. Pedersen. <Manasa Pedersen R - Last Filed: 04/13/18 18:58> Objective - Vital Signs/Intake and Output Vital Signs (last 24 hours): Temp Pulse Resp BP Pulse Ox 97.5 F L 100 H 20 156/113 H 93 L 04/13/18 15:25 04/13/18 17:02 04/13/18 15:25 04/13/18 17:02 04/13/18 15:25 Intake and Output: 04/13/18 04/13/18 06:59 18:59 Intake Total 240 Output Total 900 800 Balance -900 -560 - Medications Medications: Current Medications Albuterol/Ipratropium (Duoneb 3 Mg/0.5 Mg (3 Ml) Ud) 3 ml IH [id number] [facility]ELLA Last Admin: 04/13/18 13:15 Dose: 3 ml Albuterol/Ipratropium (Duoneb 3 Mg/0.5 Mg (3 Ml) Ud) 3 ml IH [id number] PRN PRN Reason: Shortness of Breath Amlodipine Besylate (Norvasc) 5 mg PO DAILY [facility] Last Admin: 04/13/18 09:27 Dose: Not Given Azithromycin (Zithromax) 500 mg PO DAILY [facility] Stop: 04/15/18 15:37 Clonidine HCl (Catapres) 0.1 mg PO Q6 PRN PRN Reason: Other Enoxaparin Sodium (Lovenox) 40 mg SC DAILY ARABELLA PRN Reason: Protocol Last Admin: 04/13/18 09:26 Dose: 40 mg Famotidine (Pepcid) 40 mg PO HS [facility] Last Admin: 04/12/18 21:49 Dose: 40 mg Folic Acid (Folic Acid) 1 mg PO DAILY [facility] Last Admin: 04/13/18 09:22 Dose: 1 mg Valproate Sodium 500 mg/ (Sodium Chloride) 105 mls @ 100 mls/hr IVPB Q12 [facility] Last Admin: 04/13/18 11:33 Dose: 100 mls/hr Vancomycin HCl (Vancomycin 1gm) 1 gm in 250 mls @ 167 mls/hr IVPB Q12H [facility] PRN Reason: Protocol Last Admin: 04/13/18 13:00 Dose: 167 mls/hr Lorazepam (Ativan) 2 mg IVP Q3 PRN; Protocol PRN Reason: Symptoms of alcohol withdrawl Last Admin: 04/13/18 18:27 Dose: 2 mg Lorazepam (Ativan) 2 mg IVP Q6 ARABELLA PRN Reason: Protocol Last Admin: 04/13/18 17:05 Dose: 2 mg Methylprednisolone (Solu-Medrol) 30 mg IVP Q12 [facility] Metoprolol Tartrate (Lopressor) 50 mg PO BRKDIN [facility] Last Admin: 04/13/18 17:02 Dose: 50 mg Multivitamins (Thera Tab) 1 tab PO 0800 [facility] Last Admin: 04/13/18 09:22 Dose: 1 tab Nicotine (Nicoderm Cq) 1 patch TD DAILY [facility] Last Admin: 04/13/18 09:26 Dose: 1 patch Thiamine HCl (Vitamin B1 Tab) 100 mg PO DAILY [facility] Last Admin: 04/13/18 09:22 Dose: 100 mg - Labs Labs: 04/13/18 06:15 04/13/18 06:15 PT 11.8 SECONDS (9.4-12.5) 04/09/18 16:39 INR 1.03 04/09/18 16:39 APTT 34.7 Seconds (25.1-36.5) 04/09/18 16:39 Attending/Attestation - Attestation I have personally seen and examined this patient.: Yes I have fully participated in the care of the patient.: Yes I have reviewed all pertinent clinical information, including history, physical exam and plan: Yes Notes (Text): Patient seen and examined by me at 11:05AM with resident 04/12/18. Case including HPI, physical exam, and assessment and plan discussed with resident. Agree with above with following additions/corrections. Patient is a 62-year-old male with past medical history significant for alcohol abuse and withdrawal requiring intubation, frequent falls, coronary artery disease, CVA, traumatic brain injury with multiple subdural hematomas, seizures , atrial fibrillation, and alcoholic dementia the presented to the emergency room for seizure activity. Patient states he is doing ok. He denies any chest pain or shortness of breath. No headaches or dizziness. No nausea, vomiting, or abdominal pain. No fevers or chills. No dysuria. Physical exam: General: Awake and alert, sitting up in bed in no acute distress HEENT: Normocephalic, atraumatic. Extraocular muscles intact. No scleral icterus. Oropharynx is pink. Moist mucous membranes. Neck is supple. Cardiovascular: Irregularly irregular S1, S2. No rubs rubs or gallops appreciated Pulmonary: Normal respiratory effort. No rhonchi, rales, or wheezing appreciated. Gastrointestinal: Soft, nondistended, nontender. Positive bowel sounds all 4 quadrants, no guarding. Musculoskeletal: Moves all extremities, no calf tenderness, no edema appreciated. Central nervous system: Awake and alert. Dermatologic: Skin warm and dry. Assessment and plan: Patient is a 62-year-old male with past medical history significant for alcohol abuse and withdrawal requiring intubation, frequent falls, coronary artery disease, CVA, traumatic brain injury with multiple subdural hematomas, seizures, atrial fibrillation, and alcoholic dementia the presented to the emergency room for seizure activity. 1. Seizures. Likely secondary to alcohol withdrawal. Neurology following, recommendations appreciated. Continue Depakote. Continue Ativan prn. Continue CIWA protocol. Head CT per radiologist showed significant bifrontal partially cystic encephalomalacia changes associated with ex vacuo dialatation of the frontal horns; findings consistent with sequela of old trauma; encephalomalacia changes left frontal operculum and left posterior parieto-occipital watershed zone which could represent sequela of old trauma as well versus chronic infarcts ; low-attenuation changes extend posteriorly along the anterior limbs of both internal capsules; significant central volume loss evidenced by disproportionate enlargement of ventricles compared to sulci. Rib x-rays per radiologist showed nondisplaced fractures right ninth and 10th ribs. CT chest/ abdomen/pelvis per radiologist showed fibrosis or possible linear atelectasis right lower lobe base, cardiomegaly, nonacute left rib fractures; 2.8 cm right adrenal mass; right perinephric reaction and subscapular hematoma. Continue seizure precautions. Pending EEG read 2. COPD exacerbation. Appears to be improved. Continue nebulizer treatments. Continue Zithromax and Rocephin. Solu-Medrol, taper. Continue O2 via nasal cannula as needed. 3. UTI. Patient is on Rocephin. Patient started on Vancomycin. Final urine culture pending. 4. ETOH abuse/withdrawal. Continue CIWA protocol. Continue scheduled and prn ativan. Continue thiamine, folic acid, and multivitamin. Continue seizure precautions. 5. Hypertension. Continue Lopressor and Norvasc. 6. Chronic atrial fibrillation. Continue with Lopressor. Patient is high risk for bleed secondary to multiple falls, noncompliance, and history of subdural hematoma. Anticoagulation not started. 7. GI/DVT prophylaxis. Pepcid and Lovenox
[2018-04-12 07:32] LABS: GRAN # 9.95 (1.4-6.5); GRAN % 86.2 % (50.0-68.0); HEMOGLOBIN 15.3 g/dL (14.0-18.0); LYMPH # 0.7 (1.2-3.4); LYMPH % 6.4 % (22.0-35.0); MEAN CELL VOLUME 97.2 fl (80.0-105.0); MEAN CORPUSCULAR HEMOGLOBIN 32.8 pg (25.0-35.0); MEAN CORPUSCULAR HGB CONC 33.7 g/dl (31.0-37.0); MEAN PLATELET VOLUME 10.1 fl (7.0-11.0); MONO # 0.9 (0.1-0.6); MONO % 7.4 % (1.0-6.0); RBC 4.67 10^6/uL (3.5-6.1); RED CELL DISTRIBUTION WIDTH 13.5 % (11.5-14.5); WHITE BLOOD COUNT 11.6 10^3/ul (4.5-11.0)
[2018-04-12 07:54] LABS: ALB/GLOB RATIO 1.2 (1.1-1.8); ALBUMIN 3.4 g/dL (3.0-4.8); ALT/SGPT 28 U/L (7-56); AST/SGOT 31 U/L (17-59); BLOOD UREA NITROGEN 9 mg/dL (7-21); CALCIUM 9.3 mg/dL (8.4-10.5); GFR NON-AFRICAN AMERICAN > 60
[2018-04-12] MEDS: Multivitamin Therapeutic Tab PO SCH (08:36)
[2018-04-12] MEDS: Azithromycin 500MG/NS 250ml 500 MG/250 ML BAG IVPB SCH (09:17)
[2018-04-12] MEDS: MethylPREDNISolone 40 mg Vial IVP SCH ×2 (09:17→21:50)
[2018-04-12] MEDS: Valproate 500 MG in Sodium Chloride 0.9% 100 ML IVPB SCH ×2 (09:41→21:49)
[2018-04-12] MEDS: Vancomycin 1gm in NS 250ml 1 GM/250 ML BAG IVPB SCH ×2 (11:57→23:19)
[2018-04-12] MEDS: cefTRIAXone 500 MG in Sodium Chloride 0.9% 50 ML IVPB SCH (11:59)
--- NOTE | 2018-04-12 14:05 | CP.CCUPN ---
<Bala Pedersen - Last Filed: 04/12/18 13:59> CCU Subjective - Physician Review Subjective (Free Text): 04/12/18 13:59 Bala Pedersen DO PGY1 - Internal Medicine Disaster Or Damage Control Specialist - ICU Progress Note Patient was seen and examined at bedside this AM No acute events overnight Patient appears to be lethargic this AM however does not appear agitated, anxious or tremulous. 12 system ROS otherwise negative. CCU Objective - Vital Signs / Intake & Output Vital Signs (Last 4 hours): Vital Signs Pulse BP 04/12/18 12:40 84 04/12/18 11:56 66 143/81 04/12/18 10:32 77 152/95 H Intake and Output (Last 8hrs): Intake & Output 04/11/18 04/12/18 04/12/18 22:59 06:59 14:59 Intake Total 1400 1300 Balance 1400 1300 Intake: IV 1200 1300 D5/0.9 900 Left Wrist 300 banana bag 1200 depacon 100 Oral 200 Other: # Voids Urine, Voided 2 3 # Bowel Movements 0 - Physical Exam Head: Positive for: Normocephalic, Abrasion (R posterior scalp abrasion) Pupils: Positive for: PERRL Extroacular Muscles: Positive for: EOMI Conjunctiva: Positive for: Normal, Icteric Mouth: Positive for: Moist Mucous Membranes, Other (no tongue fasciculations) Neck: Positive for: Normal Range of Motion. Negative for: MIDLINE TENDERNESS Respiratory/Chest: Positive for: Clear to Auscultation, Good Air Exchange, Tender to Palpation (R lower rib tenderness ). Negative for: Respiratory Distress, Accessory Muscle Use Cardiovascular: Positive for: Normal S1, S2. Negative for: Murmurs Abdomen: Negative for: Tenderness, Distention, Peritoneal Signs Upper Extremity: Positive for: Normal Inspection, Normal ROM (bilaterally). Negative for: Cyanosis, Edema Lower Extremity: Positive for: Normal Inspection, NORMAL PULSES. Negative for: Edema Neurological: Positive for: GCS=15, CN II-XII Intact, Speech Normal, Other (No upper extremity tremors; no astrexis ) Psychiatric: Positive for: Alert, Oriented x 3, Normal Insight, Normal Concentration - Medications Active Medications: Active Medications Generic Name Dose Route Start Last Admin Trade Name Freq PRN Reason Stop Dose Admin Albuterol/Ipratropium 3 ml 04/10/18 08:00 04/12/18 08:23 Duoneb 3 Mg/0.5 Mg (3 Ml) Ud IH 3 ml [id number] ARABELLA Administration Albuterol/Ipratropium 3 ml 04/10/18 03:02 Duoneb 3 Mg/0.5 Mg (3 Ml) Ud IH [id number] PRN Shortness of Breath Amlodipine Besylate 5 mg 04/12/18 11:30 04/12/18 11:56 Norvasc PO 5 mg DAILY ARABELLA Administration Clonidine HCl 0.1 mg 04/11/18 08:12 04/12/18 10:32 Catapres PO 0.1 mg Q6 PRN Administration Agitation Famotidine 40 mg 04/10/18 22:00 04/11/18 21:30 Pepcid PO 40 mg HS ARABELLA Administration Folic Acid 1 mg 04/10/18 10:00 04/12/18 09:17 Folic Acid PO 1 mg DAILY ARABELLA Administration Azithromycin 500 mg in 250 mls @ 167 mls/hr 04/10/18 12:15 04/12/18 09:17 Zithromax 500mg In Ns IVPB 167 mls/hr DAILY ARABELLA Administration Protocol Ceftriaxone Sodium 500 mg/ 50 mls @ 100 mls/hr 04/10/18 12:15 04/12/18 11:59 Sodium Chloride IVPB 100 mls/hr Q24H ARABELLA Administration Protocol Valproate Sodium 500 mg/ 105 mls @ 100 mls/hr 04/11/18 22:00 04/12/18 09:41 Sodium Chloride IVPB 100 mls/hr Q12 ARABELLA Administration Vancomycin HCl 1 gm in 250 mls @ 167 mls/hr 04/12/18 11:30 04/12/18 11:57 Vancomycin 1gm IVPB 167 mls/hr Q12H ARABELLA Administration Protocol Lorazepam 2 mg 04/11/18 07:54 Ativan IVP Q3 PRN Symptoms of alcohol withdrawl Protocol Lorazepam 2 mg 04/12/18 12:00 04/12/18 11:56 Ativan IVP 2 mg Q6 ARABELLA Administration Protocol Methylprednisolone 40 mg 04/10/18 22:00 04/12/18 09:17 Solu-Medrol IVP 40 mg Q12 ARABELLA Administration Metoprolol Tartrate 50 mg 04/11/18 07:48 09/10/18 08:34 Lopressor PO 50 mg BRKDIN ARABELLA Administration Multivitamins 1 tab 04/10/18 08:00 04/12/18 08:36 Thera Tab PO 1 tab 0800 ARABELLA Administration Nicotine 1 patch 04/10/18 10:00 04/12/18 09:17 Nicoderm Cq TD 1 patch DAILY ARABELLA Administration Thiamine HCl 100 mg 04/10/18 10:00 04/12/18 09:17 Vitamin B1 Tab PO 100 mg DAILY ARABELLA Administration - Patient Studies Lab Studies: Microbiology Studies 04/10/18 21:49 Urine Culture - Preliminary Urine Gram Positive Cocci 04/09/18 22:24 MRSA Culture (Admit) - Final Nose MRSA NOT DETECTED Lab Studies 04/12/18 04/12/18 Range/Units 07:15 07:15 WBC 11.6 H (4.5-11.0) 10^3/ul RBC 4.67 (3.5-6.1) 10^6/uL Hgb 15.3 (14.0-18.0) g/dL Hct 45.4 (42.0-52.0) % MCV 97.2 (80.0-105.0) fl MCH 32.8 (25.0-35.0) pg MCHC 33.7 (31.0-37.0) g/dl RDW 13.5 (11.5-14.5) % Plt Count 140 (120.0-450.0) 10^3/uL MPV 10.1 (7.0-11.0) fl Gran % 86.2 H (50.0-68.0) % Lymph % (Auto) 6.4 L (22.0-35.0) % Levy % (Auto) 7.4 H (1.0-6.0) % Eos % (Auto) 0.0 L (1.5-5.0) % Baso % (Auto) 0.0 (0.0-3.0) % Gran # 9.95 H (1.4-6.5) Lymph # (Auto) 0.7 L (1.2-3.4) Levy # (Auto) 0.9 H (0.1-0.6) Eos # (Auto) 0.0 (0.0-0.7) Baso # (Auto) 0.00 (0.0-2.0) K/mm3 Sodium 135 (132-148) mmol/L Potassium 4.1 (3.6-5.0) mmol/L Chloride 97 L (98-107) mmol/L Carbon Dioxide 28 (21-33) mmol/L Anion Gap 14 (10-20) BUN 9 (7-21) mg/dL Creatinine 0.5 L (0.8-1.5) mg/dl Est GFR ( Amer) > 60 Est GFR (Non-Af Amer) > 60 Random Glucose 161 H (70-110) mg/dL Calcium 9.3 (8.4-10.5) mg/dL Phosphorus 4.0 (2.5-4.5) mg/dL Magnesium 2.0 (1.7-2.2) mg/dL Total Bilirubin 0.9 (0.2-1.3) mg/dL AST 31 (17-59) U/L ALT 28 (7-56) U/L Alkaline Phosphatase 70 (38-126) U/L Total Protein 6.4 (5.8-8.3) g/dL Albumin 3.4 (3.0-4.8) g/dL Globulin 2.9 gm/dL Albumin/Globulin Ratio 1.2 (1.1-1.8) Laboratory Results - last 24 hr 04/12/18 04/12/18 07:15 07:15 WBC 11.6 H RBC 4.67 Hgb 15.3 Hct 45.4 MCV 97.2 MCH 32.8 MCHC 33.7 RDW 13.5 Plt Count 140 MPV 10.1 Gran % 86.2 H Lymph % (Auto) 6.4 L Levy % (Auto) 7.4 H Eos % (Auto) 0.0 L Baso % (Auto) 0.0 Gran # 9.95 H Lymph # (Auto) 0.7 L Levy # (Auto) 0.9 H Eos # (Auto) 0.0 Baso # (Auto) 0.00 Sodium 135 Potassium 4.1 Chloride 97 L Carbon Dioxide 28 Anion Gap 14 BUN 9 Creatinine 0.5 L Est GFR ( Amer) > 60 Est GFR (Non-Af Amer) > 60 Random Glucose 161 H Calcium 9.3 Phosphorus 4.0 Magnesium 2.0 Total Bilirubin 0.9 AST 31 ALT 28 Alkaline Phosphatase 70 Total Protein 6.4 Albumin 3.4 Globulin 2.9 Albumin/Globulin Ratio 1.2 Review of Systems - Review of Systems All systems: reviewed and no additional remarkable complaints except Review of Systems: As per HPI Critical Care Progress Note - Nutrition Nutrition: Nutrition Category Date Time Status Heart Healthy Diet [DIET] Diets 04/12/18 Lunch Active Assessment/Plan - Assessment and Plan (Free Text) Assessment: 62M presented to [facility] ED 04/09 for EtOH withdrawal; Admitted to ICU s/p CONTINUITY DIRECTOR on 04/09 for seizure like episode. Neuro: Seizure most likely 2/2 EtOH withdrawal Patient given 2mg ativan to break CONTINUITY DIRECTOR episode Loaded with IV Valproate 1000 mg on amd and continue on 500 mg IV bid No seizure like activity post admission EEG for today EtOH Withdrawal CIWA - 5 this AM C/w Ativan 2 Q6 ARABELLA Inc PRN ativan from 2 Q2 to 2 Q3H PRN C/w Clonidine Q6 PRN Agitation DC banana bag Multivit, Thiamine, Folic acid Cardio RRR Hypertensive Lopressor 50 PO BRK DIN Norvasc 5 QD Maintain Map >65 Pulm COPD exacerbation cont Ropcehin/Zithromax Duonebs ARABELLA and PRN solu-medrol 40q12, cont to taper Hx tobacco use Nicoderm patch GI: Zofran PRN Tolerating diet well No Abd pain N/V/D/C LFTs/ Tbili wnl Pepcid 40 PO HS Nephro/ : BUN/Cr = 9/0.5 Good urine output Replete/Correct electrolytes as needed Ucx = GPC CTAP - Perinephric hematoma invloving the right mid and lower pole level ID: Started vancomycin for GPC Zithromax for COPD as above; Rocephin for possible aspiration CT chest w/o any infiltrate or effusion Dispo: patient is stable for transfer to remote tele Patient seen, examined, and discussed w/ attending physician Dr. Nikita Pedersen DO PGY1 - Internal Medicine Disaster Or Damage Control Specialist - Pager [phone] - Date & Time Date: 04/12/18 Time: 14:44 <Mirna Shelton - Last Filed: 04/12/18 15:18> CCU Objective - Vital Signs / Intake & Output Vital Signs (Last 4 hours): Vital Signs Pulse Resp BP Pulse Ox 04/12/18 14:57 77 21 04/12/18 14:00 76 22 108/66 97 04/12/18 13:00 83 21 104/70 84 L 04/12/18 12:59 84 21 04/12/18 12:55 80 21 04/12/18 12:54 87 04/12/18 12:53 91 H 25 H 04/12/18 12:52 87 20 04/12/18 12:51 89 18 04/12/18 12:50 91 H 21 04/12/18 12:49 80 20 04/12/18 12:47 80 21 04/12/18 12:40 84 04/12/18 12:00 68 18 137/87 89 L 04/12/18 11:56 66 143/81 04/12/18 11:40 62 18 143/81 100 Intake and Output (Last 8hrs): Intake & Output 04/12/18 04/12/18 04/12/18 06:59 14:59 22:59 Intake Total 1300 Balance 1300 Intake: IV 1300 banana bag 1200 depacon 100 Other: # Voids Urine, Voided 3 - Medications Active Medications: Active Medications Generic Name Dose Route Start Last Admin Trade Name Freq PRN Reason Stop Dose Admin Albuterol/Ipratropium 3 ml 04/10/18 08:00 04/12/18 14:15 Duoneb 3 Mg/0.5 Mg (3 Ml) Ud IH 3 ml [id number] ARABELLA Administration Albuterol/Ipratropium 3 ml 04/10/18 03:02 Duoneb 3 Mg/0.5 Mg (3 Ml) Ud IH [id number] PRN Shortness of Breath Amlodipine Besylate 5 mg 04/12/18 11:30 04/12/18 11:56 Norvasc PO 5 mg DAILY ARABELLA Administration Clonidine HCl 0.1 mg 04/11/18 08:12 04/12/18 10:32 Catapres PO 0.1 mg Q6 PRN Administration Agitation Famotidine 40 mg 04/10/18 22:00 04/11/18 21:30 Pepcid PO 40 mg HS ARABELLA Administration Folic Acid 1 mg 04/10/18 10:00 04/12/18 09:17 Folic Acid PO 1 mg DAILY ARABELLA Administration Azithromycin 500 mg in 250 mls @ 167 mls/hr 04/10/18 12:15 04/12/18 09:17 Zithromax 500mg In Ns IVPB 167 mls/hr DAILY ARABELLA Administration Protocol Ceftriaxone Sodium 500 mg/ 50 mls @ 100 mls/hr 04/10/18 12:15 04/12/18 11:59 Sodium Chloride IVPB 100 mls/hr Q24H ARABELLA Administration Protocol Valproate Sodium 500 mg/ 105 mls @ 100 mls/hr 04/11/18 22:00 04/12/18 09:41 Sodium Chloride IVPB 100 mls/hr Q12 ARABELLA Administration Vancomycin HCl 1 gm in 250 mls @ 167 mls/hr 04/12/18 11:30 04/12/18 11:57 Vancomycin 1gm IVPB 167 mls/hr Q12H ARABELLA Administration Protocol Lorazepam 2 mg 04/11/18 07:54 Ativan IVP Q3 PRN Symptoms of alcohol withdrawl Protocol Lorazepam 2 mg 04/12/18 12:00 04/12/18 11:56 Ativan IVP 2 mg Q6 ARABELLA Administration Protocol Methylprednisolone 40 mg 04/10/18 22:00 04/12/18 09:17 Solu-Medrol IVP 40 mg Q12 ARABELLA Administration Metoprolol Tartrate 50 mg 04/11/18 07:48 04/12/18 08:34 Lopressor PO 50 mg BRKDIN ARABELLA Administration Multivitamins 1 tab 04/10/18 08:00 04/12/18 08:36 Thera Tab PO 1 tab 0800 ARABELLA Administration Nicotine 1 patch 04/10/18 10:00 04/12/18 09:17 Nicoderm Cq TD 1 patch DAILY ARABELLA Administration Thiamine HCl 100 mg 04/10/18 10:00 04/12/18 09:17 Vitamin B1 Tab PO 100 mg DAILY ARABELLA Administration - Patient Studies Lab Studies: Microbiology Studies 04/10/18 21:49 Urine Culture - Preliminary Urine Gram Positive Cocci 04/09/18 22:24 MRSA Culture (Admit) - Final Nose MRSA NOT DETECTED Lab Studies 04/12/18 04/12/18 Range/Units 07:15 07:15 WBC 11.6 H (4.5-11.0) 10^3/ul RBC 4.67 (3.5-6.1) 10^6/uL Hgb 15.3 (14.0-18.0) g/dL Hct 45.4 (42.0-52.0) % MCV 97.2 (80.0-105.0) fl MCH 32.8 (25.0-35.0) pg MCHC 33.7 (31.0-37.0) g/dl RDW 13.5 (11.5-14.5) % Plt Count 140 (120.0-450.0) 10^3/uL MPV 10.1 (7.0-11.0) fl Gran % 86.2 H (50.0-68.0) % Lymph % (Auto) 6.4 L (22.0-35.0) % Levy % (Auto) 7.4 H (1.0-6.0) % Eos % (Auto) 0.0 L (1.5-5.0) % Baso % (Auto) 0.0 (0.0-3.0) % Gran # 9.95 H (1.4-6.5) Lymph # (Auto) 0.7 L (1.2-3.4) Levy # (Auto) 0.9 H (0.1-0.6) Eos # (Auto) 0.0 (0.0-0.7) Baso # (Auto) 0.00 (0.0-2.0) K/mm3 Sodium 135 (132-148) mmol/L Potassium 4.1 (3.6-5.0) mmol/L Chloride 97 L (98-107) mmol/L Carbon Dioxide 28 (21-33) mmol/L Anion Gap 14 (10-20) BUN 9 (7-21) mg/dL Creatinine 0.5 L (0.8-1.5) mg/dl Est GFR ( Amer) > 60 Est GFR (Non-Af Amer) > 60 Random Glucose 161 H (70-110) mg/dL Calcium 9.3 (8.4-10.5) mg/dL Phosphorus 4.0 (2.5-4.5) mg/dL Magnesium 2.0 (1.7-2.2) mg/dL Total Bilirubin 0.9 (0.2-1.3) mg/dL AST 31 (17-59) U/L ALT 28 (7-56) U/L Alkaline Phosphatase 70 (38-126) U/L Total Protein 6.4 (5.8-8.3) g/dL Albumin 3.4 (3.0-4.8) g/dL Globulin 2.9 gm/dL Albumin/Globulin Ratio 1.2 (1.1-1.8) Laboratory Results - last 24 hr 04/12/18 04/12/18 07:15 07:15 WBC 11.6 H RBC 4.67 Hgb 15.3 Hct 45.4 MCV 97.2 MCH 32.8 MCHC 33.7 RDW 13.5 Plt Count 140 MPV 10.1 Gran % 86.2 H Lymph % (Auto) 6.4 L Levy % (Auto) 7.4 H Eos % (Auto) 0.0 L Baso % (Auto) 0.0 Gran # 9.95 H Lymph # (Auto) 0.7 L Levy # (Auto) 0.9 H Eos # (Auto) 0.0 Baso # (Auto) 0.00 Sodium 135 Potassium 4.1 Chloride 97 L Carbon Dioxide 28 Anion Gap 14 BUN 9 Creatinine 0.5 L Est GFR ( Amer) > 60 Est GFR (Non-Af Amer) > 60 Random Glucose 161 H Calcium 9.3 Phosphorus 4.0 Magnesium 2.0 Total Bilirubin 0.9 AST 31 ALT 28 Alkaline Phosphatase 70 Total Protein 6.4 Albumin 3.4 Globulin 2.9 Albumin/Globulin Ratio 1.2 Critical Care Progress Note - Nutrition Nutrition: Nutrition Category Date Time Status Heart Healthy Diet [DIET] Diets 04/12/18 Lunch Active Addendum Addendum: 04/12/18 15:15 ICU Attending Addendum: Patient seen and examined. Case reviewed on round with housestaff. Agree with resident note above with the following additions/exceptions: 62M with etoh abuse, hx of w/d seizures, resp failure admitted with etoh w/d Currently doing well with benzo taper ativan, can switch to PO valium cont CIWA protocol d/c banana bag replace lytes UTI with GPC empiric vanc, f/u culture hemodynamically stable ok to transfer out of ICU d/w Primary Care Team Rest of care as noted above. Mirna Shelton MD Sill Worker 04/12/18 15:18
[2018-04-13] MEDS: Albuterol-Ipratrop 3 mg / 0.5 (3 ml) UD IH SCH ×4 (01:08→20:35)
--- NOTE | 2018-04-13 06:02 | CP.PCM.PN ---
<Nehal Benitez - Last Filed: 04/13/18 17:59> Subjective - Date & Time of Evaluation Date of Evaluation: 04/13/18 Time of Evaluation: 07:10 - Subjective Subjective: PGY-1 Nehal Benitez D.O. Medicine progress note for Dr. Pedersen's service: Patient is seen and examined this morning. Nurse reports patient was agitated over night. He pulled out his IV several times. The patient now has on mittens and the Avasys. No seizure activity observed. Most recent CIWA is 5 (tremors, sweat, disoriented). Patient is sleeping. He is somnolent but able to be aroused. Patient is only oriented to person. He can follow simple commands but no spontaneous speech. He denies pain. Objective - Vital Signs/Intake and Output Vital Signs (last 24 hours): Temp Pulse Resp BP Pulse Ox 98.2 F 91 H 18 157/96 H 92 L 04/13/18 00:18 04/13/18 00:00 04/13/18 00:00 04/13/18 00:00 04/13/18 00:00 Intake and Output: 04/12/18 04/13/18 18:59 06:59 Intake Total 1850 Balance 1850 - Medications Medications: Current Medications Albuterol/Ipratropium (Duoneb 3 Mg/0.5 Mg (3 Ml) Ud) 3 ml IH [id number] [facility] Last Admin: 04/13/18 01:08 Dose: Not Given Albuterol/Ipratropium (Duoneb 3 Mg/0.5 Mg (3 Ml) Ud) 3 ml IH [id number] PRN PRN Reason: Shortness of Breath Amlodipine Besylate (Norvasc) 5 mg PO DAILY [facility] Last Admin: 04/12/18 11:56 Dose: 5 mg Clonidine HCl (Catapres) 0.1 mg PO Q6 PRN PRN Reason: Agitation Last Admin: 04/12/18 18:19 Dose: 0.1 mg Enoxaparin Sodium (Lovenox) 40 mg SC DAILY [facility] PRN Reason: Protocol Famotidine (Pepcid) 40 mg PO HS [facility] Last Admin: 04/12/18 21:49 Dose: 40 mg Folic Acid (Folic Acid) 1 mg PO DAILY [facility] Last Admin: 04/12/18 09:17 Dose: 1 mg Azithromycin (Zithromax 500mg In Ns) 500 mg in 250 mls @ 167 mls/hr IVPB DAILY [facility] PRN Reason: Protocol Last Admin: 04/12/18 09:17 Dose: 167 mls/hr Ceftriaxone Sodium 500 mg/ (Sodium Chloride) 50 mls @ 100 mls/hr IVPB Q24H [facility] PRN Reason: Protocol Last Admin: 04/12/18 11:59 Dose: 100 mls/hr Valproate Sodium 500 mg/ (Sodium Chloride) 105 mls @ 100 mls/hr IVPB Q12 [facility] Last Admin: 04/12/18 21:49 Dose: 100 mls/hr Vancomycin HCl (Vancomycin 1gm) 1 gm in 250 mls @ 167 mls/hr IVPB Q12H [facility] PRN Reason: Protocol Last Admin: 04/12/18 23:19 Dose: 167 mls/hr Lorazepam (Ativan) 2 mg IVP Q3 PRN; Protocol PRN Reason: Symptoms of alcohol withdrawl Last Admin: 04/12/18 19:50 Dose: 2 mg Lorazepam (Ativan) 2 mg IVP Q6 [facility] PRN Reason: Protocol Last Admin: 04/12/18 23:46 Dose: 2 mg Methylprednisolone (Solu-Medrol) 40 mg IVP Q12 [facility] Last Admin: 04/12/18 21:50 Dose: 40 mg Metoprolol Tartrate (Lopressor) 50 mg PO BRKDIN [facility] Last Admin: 04/12/18 17:12 Dose: 50 mg Multivitamins (Thera Tab) 1 tab PO 0800 [facility] Last Admin: 04/12/18 08:36 Dose: 1 tab Nicotine (Nicoderm Cq) 1 patch TD DAILY [facility] Last Admin: 04/12/18 09:17 Dose: 1 patch Thiamine HCl (Vitamin B1 Tab) 100 mg PO DAILY [facility] Last Admin: 04/12/18 09:17 Dose: 100 mg - Labs Labs: 04/12/18 07:15 04/12/18 07:15 PT 11.8 SECONDS (9.4-12.5) 04/09/18 16:39 INR 1.03 04/09/18 16:39 APTT 34.7 Seconds (25.1-36.5) 04/09/18 16:39 - Constitutional Appears: No Acute Distress, Unkempt, Older Than Stated Age - Head Exam Head Exam: ATRAUMATIC, NORMAL INSPECTION, NORMOCEPHALIC - Eye Exam Eye Exam: EOMI, Normal appearance - ENT Exam ENT Exam: Mucous Membranes Moist - Neck Exam Neck Exam: Normal Inspection - Respiratory Exam Respiratory Exam: Clear to Ausculation Bilateral, NORMAL BREATHING PATTERN - Cardiovascular Exam Cardiovascular Exam: Irregular Rhythm (Afib (chronic)), +S1, +S2. absent: Murmur - GI/Abdominal Exam GI & Abdominal Exam: Soft. absent: Tenderness - Rectal Exam Rectal Exam: Deferred - Exam Additional comments: wearing diaper - Extremities Exam Extremities Exam: Normal Inspection. absent: Pedal Edema - Back Exam Back Exam: NORMAL INSPECTION - Neurological Exam Neurological Exam: Alert, Altered, Awake. absent: Motor Sensory Deficit, Oriented x3 (person only) Neuro motor strength exam: Left Upper Extremity: 5, Right Upper Extremity: 5, Left Lower Extremity: 5, Right Lower Extremity: 5 Additional comments: gait not evaluated - Psychiatric Exam Psychiatric exam: Flat Affect - Skin Skin Exam: Dry, Normal Color, Warm Assessment and Plan - Assessment and Plan (Free Text) Assessment: Patient is a 62 yo male with a history of alcohol use disorder with subsequent cirrhosis, dementia, and w/d seizures, TBI with SDHs, CVA, HI, COPD, and A fib who presented after a seizure and fall. According to the ED, a bystander witnessed the generalized seizure with urinary incontinence. Patient also had a witnessed clonic-tonic seizure while in CT- given 2 mg Ativan. Patient was found to have right posterior perinephric hematoma. He was initially managed in the ICU for ETOH withdrawal and seizure precautions. He is now transferred to telemetry. Plan: Seizures- 2/2 alcohol w/d +/- TBI/CVA, chronic noncompliance with antiseizure medications and alcohol cessation - BAL 131 on admission - CT head: profound encephalomalacia in bilateral frontal lobes with profound atrophy - Rib XR: Nondisplaced fractures right 9th and 10th ribs identified. - CT chest/abd/pelvis: Nonacute left rib fractures. - Seizure precautions - Loaded with Depakote 1000 mg on admission - Depakote 500 mg IV BID - Ativan 2 mg IV q6hrs [facility]- continue taper - Clonidine 0.1 mg PO q6hrs PRN - CIWA protocol (most recent 5, but patient disoriented at baseline)- Ativan 2 mg IV q3 PRN - Received banana bag - MV, folic acid and thiamine daily - F/u EEG - PT- rec RAUL - ST- soft diet/thin liquids, dysphagia therapy - ICU consulted (Nikita) - Neurology consulted (Minh) COPD exacerbation - CT chest/abd/pelvis: Fibrosis or possible linear atelectasis right lower lobe base. Cardiomegaly. Chest CT component otherwise appears nonacute. - Azithromycin 500 mg IV daily (started 04/10) - Rocephin 500 mg IV daily (started 04/10) - Vancomycin 1 g IV q12hrs (started 04/12) - F/u vanc trough - Duoneb q6hrs [facility], q4hrs PRN SOB - Solu-medrol 30 mg IV q12hrs- taper Afib, chronic- rate-controlled (HR 90s) - No anticoagulation due to high fall risk - Lopressor 50 mg PO BID UTI - Urine Cx- Enterococcus faecalis - Vancomycin 1 g IV q12hrs (started 04/12) - F/u vanc trough - ID consulted (Jo-Ann) HTN- SBP 150s-160s - Lopressor 50 mg PO BID - Norvasc 5 mg PO daily - Clonidine 0.1 mg PO q6hrs PRN Perinephric hematoma, R posterior- 2/2 fall - CT chest/abd/pelvis: Right perinephric reaction and subcapsular hematoma identified. - Monitor CBC- Hgb wnl Adrenal mass, R- incidental finding - CT chest/abd/pelvis: 2. 2.8 cm right adrenal mass. Follow-up MRI is advised to exclude malignancy though this may simply represent a benign adrenal adenoma. The appears indeterminate by the current examination. Tobacco use disorder - Nicotine patch daily Palliative consult SW consult- homeless IVF: not indicated GI ppx: Pepcid 40 mg PO QHS VTE ppx: Lovenox 40 mg SC daily, SCDs Diet: Heart healthy- soft/thin liquids Code status: full code Case was discussed with attending, Dr. Pedersen. <Manasa Pedesren R - Last Filed: 04/14/18 17:08> Objective - Vital Signs/Intake and Output Vital Signs (last 24 hours): Temp Pulse Resp BP Pulse Ox 99.6 F 75 18 131/94 H 97 04/14/18 14:00 04/14/18 14:00 04/14/18 14:00 04/14/18 14:00 04/14/18 14:00 Intake and Output: 04/14/18 04/14/18 06:59 18:59 Intake Total 920 Output Total 500 Balance 420 - Medications Medications: Current Medications Albuterol/Ipratropium (Duoneb 3 Mg/0.5 Mg (3 Ml) Ud) 3 ml IH [id number] [facility] Last Admin: 04/14/18 14:07 Dose: 3 ml Albuterol/Ipratropium (Duoneb 3 Mg/0.5 Mg (3 Ml) Ud) 3 ml IH [id number] PRN PRN Reason: Shortness of Breath Amlodipine Besylate (Norvasc) 10 mg PO DAILY [facility] Last Admin: 04/14/18 09:56 Dose: 10 mg Clonidine HCl (Catapres) 0.1 mg PO Q6 PRN PRN Reason: Other Last Admin: 04/14/18 05:36 Dose: 0.1 mg Enoxaparin Sodium (Lovenox) 40 mg SC DAILY [facility] PRN Reason: Protocol Last Admin: 04/14/18 09:56 Dose: 40 mg Famotidine (Pepcid) 40 mg PO HS [facility] Last Admin: 04/13/18 21:41 Dose: 40 mg Folic Acid (Folic Acid) 1 mg PO DAILY [facility] Last Admin: 04/14/18 09:59 Dose: 1 mg Valproate Sodium 500 mg/ (Sodium Chloride) 105 mls @ 100 mls/hr IVPB Q12 [facility] Last Admin: 04/14/18 09:57 Dose: 100 mls/hr Piperacillin Sod/Tazobactam Sod (Zosyn 3.375 In Ns 100ml) 100 mls @ 200 mls/hr IVPB Q6 [facility] PRN Reason: Protocol Stop: 04/22/18 21:31 Last Admin: 04/14/18 11:45 Dose: 200 mls/hr Lorazepam (Ativan) 2 mg IVP Q3 PRN; Protocol PRN Reason: Symptoms of alcohol withdrawl Last Admin: 04/13/18 22:38 Dose: 2 mg Lorazepam (Ativan) 2 mg IVP Q6 [facility] PRN Reason: Protocol Last Admin: 04/14/18 11:44 Dose: 2 mg Methylprednisolone (Solu-Medrol) 30 mg IVP Q12 [facility] Last Admin: 04/14/18 09:57 Dose: 30 mg Metoprolol Tartrate (Lopressor) 50 mg PO BRKDIN [facility] Last Admin: 04/14/18 08:18 Dose: 50 mg Multivitamins (Thera Tab) 1 tab PO 0800 [facility] Last Admin: 04/14/18 08:20 Dose: 1 tab Nicotine (Nicoderm Cq) 1 patch TD DAILY [facility] Last Admin: 04/14/18 09:55 Dose: 1 patch Thiamine HCl (Vitamin B1 Tab) 100 mg PO DAILY [facility] Last Admin: 04/14/18 09:57 Dose: 100 mg - Labs Labs: 04/14/18 06:30 04/14/18 06:30 PT 11.8 SECONDS (9.4-12.5) 04/09/18 16:39 INR 1.03 04/09/18 16:39 APTT 34.7 Seconds (25.1-36.5) 04/09/18 16:39 Attending/Attestation - Attestation I have personally seen and examined this patient.: Yes I have fully participated in the care of the patient.: Yes I have reviewed all pertinent clinical information, including history, physical exam and plan: Yes Notes (Text): Patient seen and examined by me at 11:55AM with resident 04/13/18. Case including HPI, physical exam, and assessment and plan discussed with resident. Agree with above with following additions/corrections. Patient is a 62-year-old male with past medical history significant for alcohol abuse and withdrawal requiring intubation, frequent falls, coronary artery disease, CVA, traumatic brain injury with multiple subdural hematomas, seizures , atrial fibrillation, and alcoholic dementia the presented to the emergency room for seizure activity. Patient states he is feels fine. Patient agitated overnight. Scored 7 on CIWA protocol. Scored 5 this morning on CIWA. Patient denies any chest pain or shortness of breath. No headaches or dizziness. No nausea, vomiting, or abdominal pain. No fevers or chills. No dysuria. Physical exam: General: Awake and alert, sitting up in bed in no acute distress HEENT: Normocephalic, atraumatic. Extraocular muscles intact. No scleral icterus. Oropharynx is pink. Moist mucous membranes. Neck is supple. Cardiovascular: Irregularly irregular S1, S2. No rubs rubs or gallops appreciated Pulmonary: Normal respiratory effort. No rhonchi, rales, or wheezing appreciated. Gastrointestinal: Soft, nondistended, nontender. Positive bowel sounds all 4 quadrants, no guarding. Musculoskeletal: Moves all extremities, no calf tenderness, no edema appreciated. Central nervous system: Awake and alert. Dermatologic: Skin warm and dry. Assessment and plan: Patient is a 62-year-old male with past medical history significant for alcohol abuse and withdrawal requiring intubation, frequent falls, coronary artery disease, CVA, traumatic brain injury with multiple subdural hematomas, seizures, atrial fibrillation, and alcoholic dementia the presented to the emergency room for seizure activity. 1. Seizures. Likely secondary to alcohol withdrawal. Neurology following, recommendations appreciated. Continue Depakote. Continue Ativan prn. Continue CIWA protocol. Continue seizure precautions. Pending EEG read. Head CT per radiologist showed significant bifrontal partially cystic encephalomalacia changes associated with ex vacuo dialatation of the frontal horns; findings consistent with sequela of old trauma; encephalomalacia changes left frontal operculum and left posterior parieto-occipital watershed zone which could represent sequela of old trauma as well versus chronic infarcts; low- attenuation changes extend posteriorly along the anterior limbs of both internal capsules; significant central volume loss evidenced by disproportionate enlargement of ventricles compared to sulci. Rib x-rays per radiologist showed nondisplaced fractures right ninth and 10th ribs. CT chest/ abdomen/pelvis per radiologist showed fibrosis or possible linear atelectasis right lower lobe base, cardiomegaly, nonacute left rib fractures; 2.8 cm right adrenal mass; right perinephric reaction and subscapular hematoma. 2. COPD exacerbation. Improving. Continue nebulizer treatments. Continue Zithromax and Rocephin. Continue to taper Solumedrol. Continue O2 via nasal cannula as needed. 3. UTI. Right perinephric reaction and subscapular hematoma. Urine culture positive for Enterococcus. Continue Vancomycin. ID consulted, follow up recommendations. 4. ETOH abuse/withdrawal. Continue CIWA protocol. Continue scheduled and prn ativan. Continue thiamine, folic acid, and multivitamin. Continue seizure precautions. 5. Hypertension. Continue Lopressor and Norvasc. 6. Chronic atrial fibrillation. Continue with Lopressor. Patient is high risk for bleeds secondary to multiple falls, noncompliance, and history of subdural hematoma. Anticoagulation not started. 7. GI/DVT prophylaxis. Pepcid and Lovenox
[2018-04-13 07:10] LABS: ALB/GLOB RATIO 1.2 (1.1-1.8); ALBUMIN 3.5 g/dL (3.0-4.8); ALT/SGPT 54 U/L (7-56); AST/SGOT 51 U/L (17-59); BLOOD UREA NITROGEN 15 mg/dL (7-21); CALCIUM 9.4 mg/dL (8.4-10.5); GFR NON-AFRICAN AMERICAN > 60
[2018-04-13 07:14] LABS: GRAN # 8.71 (1.4-6.5); GRAN % 86.6 % (50.0-68.0); HEMOGLOBIN 15.3 g/dL (14.0-18.0); LYMPH # 0.6 (1.2-3.4); MEAN CELL VOLUME 97.2 fl (80.0-105.0); MEAN CORPUSCULAR HEMOGLOBIN 32.5 pg (25.0-35.0); MEAN CORPUSCULAR HGB CONC 33.4 g/dl (31.0-37.0); MEAN PLATELET VOLUME 9.8 fl (7.0-11.0); MONO # 0.7 (0.1-0.6); MONO % 7.4 % (1.0-6.0); RBC 4.71 10^6/uL (3.5-6.1); RED CELL DISTRIBUTION WIDTH 13.6 % (11.5-14.5); WHITE BLOOD COUNT 10.1 10^3/ul (4.5-11.0)
[2018-04-13] MEDS: Multivitamin Therapeutic Tab PO SCH (09:22)
[2018-04-13] MEDS: Azithromycin 500MG/NS 250ml 500 MG/250 ML BAG IVPB SCH (09:23)
[2018-04-13] MEDS: MethylPREDNISolone 40 mg Vial IVP SCH ×2 (09:23→21:41)
[2018-04-13] MEDS: Enoxaparin 40 mg Syringe SC SCH (09:26)
[2018-04-13] MEDS: Valproate 500 MG in Sodium Chloride 0.9% 100 ML IVPB SCH (11:33)
[2018-04-13] MEDS: Vancomycin 1gm in NS 250ml 1 GM/250 ML BAG IVPB SCH (13:00)
[2018-04-13] MEDS: cefTRIAXone 500 MG in Sodium Chloride 0.9% 50 ML IVPB SCH (14:34)
[2018-04-13] MEDS: Piperacillin/Tazobact 3.375 gm 100 ML IVPB SCH (23:13)
[2018-04-14] MEDS: Valproate 500 MG in Sodium Chloride 0.9% 100 ML IVPB SCH ×4 (00:03→22:55)
[2018-04-14 02:37] LABS: PH,URINE 7.5 (4.7-8.0); URINE BILIRUBIN NEGATIVE (NEGATIVE); URINE BLOOD NEGATIVE (NEGATIVE); URINE GLUCOSE (UA) NEGATIVE (NEGATIVE); URINE LEUKOCYTE ESTERASE NEGATIVE Leu/uL (NEGATIVE); URINE PROTEIN NEGATIVE mg/dL (<30 mg/dL)
[2018-04-14 02:38] LABS: URINE APPEARANCE CLEAR (CLEAR); URINE COLOR YELLOW (YELLOW)
[2018-04-14] MEDS: Albuterol-Ipratrop 3 mg / 0.5 (3 ml) UD IH SCH ×4 (02:39→21:15)
--- NOTE | 2018-04-14 04:39 | CON ---
DATE: 04/13/2018 LOCATION: The patient is seen in room 563, bed 1. CHIEF COMPLAINT: Positive urine culture x1 day duration. HISTORY OF PRESENT ILLNESS: This is a 62-year-old male with alcoholic seizures and alcohol abuse, coronary artery disease, myocardial infarction, hypertension, chronic obstructive lung disease, long-time smoker with COPD and the patient with a history of hernia repair, who was admitted with a diagnosis of alcohol withdrawal seizures. The patient has not had any fevers, any chills. He is confused at this time and the Infectious Disease consultation requested because of positive urine culture for Enterococcus faecalis. Patient is unable to give any history whether he is having urinary symptoms or not. He does not have a Murphy catheter. He is in bed and he is confused. He does not know his name and he does not know where he is. REVIEW OF SYSTEMS: Reveals no abdominal pain, diarrhea or constipation. No dysuria or frequency as far as we can tell and no rash and no headaches. PAST MEDICAL HISTORY: Significant for seizures, coronary artery disease, myocardial infarction, hypertension, chronic obstructive lung disease. PAST SURGICAL HISTORY: Significant for hernia repair. SOCIAL HISTORY: The patient is alcoholic and he is a smoker. MEDICATIONS AT HOME: States the patient is noncompliant to any his medications at home. PHYSICAL EXAMINATION: GENERAL: The patient is in bed in no acute distress and looking around, but does not verbalize well. VITAL SIGNS: With a temperature of 97, heart rate of 96, blood pressure of 140/80, respiratory rate of 22 and oxygenating on nasal cannula with 93%. HEENT: Unremarkable. Pupils are equal and react to accommodation. Extraocular muscle intact. Conjunctivae is pink. Sclerae is nonicteric. NECK: Supple. LUNGS: Have decreased breath sounds. HEART: Normal S1, S2. ABDOMEN: Soft, nontender. LABORATORY EXAMINATION: Reveals the patient's white count of 12,200 on admission, now is down to 10,000; hemoglobin of 17; and platelet count of 110 with 76% granulocytosis. Coagulation is noted. Chemistries reveals a BUN of 8, creatinine of 0.6. Random glucose is 154, bilirubin 2.4. Cholesterol is 131. Urinalysis reveals 25 to 30 wbc's, negative bacteria, leukocyte esterase is small, urine protein is negative. Toxicology reveals alcohol quantitative is 131. Microbiology reveals pansensitive Enterococcus faecalis in the urine, sensitive to ampicillin. The patient had a CAT scan of the head which was negative. Had chest CT and abdominal CT. The abdominal CT shows a right perinephric stranding and subcapsular hematoma and CAT scan of the chest is negative for infiltrate at that time. ASSESSMENT AND PLAN: A 62-year-old male with history of alcoholism, tobacco use, seizures, coronary artery disease, myocardial infarction, hypertension, chronic obstructive lung disease, who is now with tachycardia, dyspnea, leukocytosis, confusion. 1. Low platelets with severe sepsis with Enterococcus, complicated urinary tract infection with right pyelonephritis and subcapsular hematoma, must rule out underlying prostate disease, must also rule out aspiration pneumonia and complications of alcoholism and delirium tremens pending. We will order blood cultures, urine cultures, sputum cultures, urinalysis, prostate specific antigen, human immunodeficiency virus fourth generation, chest x-ray, procalcitonin. We will start the patient on Zosyn and the patient's methicillin-resistant Staphylococcus aureus screen is not detected and we will make further recommendations upon availability of initial results and repeat chest x-ray. We will follow with you. Leonel Philip MD
[2018-04-14] MEDS: Piperacillin/Tazobact 3.375 gm 100 ML IVPB SCH ×5 (05:30→23:45)
--- NOTE | 2018-04-14 06:17 | CP.PCM.PN ---
<Nehal Benitez - Last Filed: 04/14/18 21:33> Subjective - Date & Time of Evaluation Date of Evaluation: 04/14/18 Time of Evaluation: 07:20 - Subjective Subjective: PGY-1 Neahl Benitez D.O. Medicine progress note for Dr. Pedersen's service: Patient is seen and examined this morning. No over night seizure-activity. Patient was mildly agitated and attempted to get out of bed. Patient is sleeping. He is able to be awoken but ana lethargic. It was clarified with social work that patient is not homeless. He lives with his daughter. Objective - Vital Signs/Intake and Output Vital Signs (last 24 hours): Temp Pulse Resp BP Pulse Ox 98.1 F 77 20 148/112 H 93 L 04/13/18 22:37 04/14/18 05:36 04/13/18 22:37 04/14/18 05:36 04/13/18 22:37 Intake and Output: 04/13/18 04/14/18 18:59 06:59 Intake Total 240 920 Output Total 800 500 Balance -560 420 - Medications Medications: Current Medications Albuterol/Ipratropium (Duoneb 3 Mg/0.5 Mg (3 Ml) Ud) 3 ml IH [id number] [facility] Last Admin: 04/14/18 02:39 Dose: Not Given Albuterol/Ipratropium (Duoneb 3 Mg/0.5 Mg (3 Ml) Ud) 3 ml IH [id number] PRN PRN Reason: Shortness of Breath Amlodipine Besylate (Norvasc) 5 mg PO DAILY [facility] Last Admin: 04/13/18 09:27 Dose: Not Given Clonidine HCl (Catapres) 0.1 mg PO Q6 PRN PRN Reason: Other Last Admin: 04/14/18 05:36 Dose: 0.1 mg Enoxaparin Sodium (Lovenox) 40 mg SC DAILY [facility] PRN Reason: Protocol Last Admin: 04/13/18 09:26 Dose: 40 mg Famotidine (Pepcid) 40 mg PO HS [facility] Last Admin: 04/13/18 21:41 Dose: 40 mg Folic Acid (Folic Acid) 1 mg PO DAILY [facility] Last Admin: 04/13/18 09:22 Dose: 1 mg Valproate Sodium 500 mg/ (Sodium Chloride) 105 mls @ 100 mls/hr IVPB Q12 [facility] Last Admin: 04/14/18 00:03 Dose: 100 mls/hr Piperacillin Sod/Tazobactam Sod (Zosyn 3.375 In Ns 100ml) 100 mls @ 200 mls/hr IVPB Q6 [facility] PRN Reason: Protocol Stop: 04/22/18 21:31 Last Admin: 04/14/18 05:30 Dose: 200 mls/hr Lorazepam (Ativan) 2 mg IVP Q3 PRN; Protocol PRN Reason: Symptoms of alcohol withdrawl Last Admin: 04/13/18 22:38 Dose: 2 mg Lorazepam (Ativan) 2 mg IVP Q6 [facility] PRN Reason: Protocol Last Admin: 04/14/18 05:30 Dose: 2 mg Methylprednisolone (Solu-Medrol) 30 mg IVP Q12 [facility] Last Admin: 04/13/18 21:41 Dose: 30 mg Metoprolol Tartrate (Lopressor) 50 mg PO BRKDIN [facility] Last Admin: 04/13/18 17:02 Dose: 50 mg Multivitamins (Thera Tab) 1 tab PO 0800 [facility] Last Admin: 04/13/18 09:22 Dose: 1 tab Nicotine (Nicoderm Cq) 1 patch TD DAILY [facility] Last Admin: 04/13/18 09:26 Dose: 1 patch Thiamine HCl (Vitamin B1 Tab) 100 mg PO DAILY [facility] Last Admin: 04/13/18 09:22 Dose: 100 mg - Labs Labs: 04/13/18 06:15 04/13/18 06:15 PT 11.8 SECONDS (9.4-12.5) 04/09/18 16:39 INR 1.03 04/09/18 16:39 APTT 34.7 Seconds (25.1-36.5) 04/09/18 16:39 - Constitutional Appears: Unkempt, Older Than Stated Age - Head Exam Head Exam: ATRAUMATIC, NORMAL INSPECTION, NORMOCEPHALIC - Eye Exam Eye Exam: EOMI Additional comments: R ptosis - ENT Exam ENT Exam: Mucous Membranes Moist - Neck Exam Neck Exam: Normal Inspection - Respiratory Exam Respiratory Exam: Clear to Ausculation Bilateral, NORMAL BREATHING PATTERN - Cardiovascular Exam Cardiovascular Exam: Irregular Rhythm (Afib, rate controlled), +S1, +S2 - GI/Abdominal Exam GI & Abdominal Exam: Soft, Normal Bowel Sounds - Rectal Exam Rectal Exam: Deferred - Exam Additional comments: condom cath in place, diaper - Extremities Exam Extremities Exam: Normal Inspection. absent: Pedal Edema - Neurological Exam Neurological Exam: Alert, Awake. absent: Motor Sensory Deficit, Oriented x3 ( oriented to person only) - Psychiatric Exam Psychiatric exam: Flat Affect - Skin Skin Exam: Dry, Normal Color, Warm Assessment and Plan - Assessment and Plan (Free Text) Assessment: Patient is a 62 yo male with a history of alcohol use disorder with subsequent cirrhosis, dementia, and w/d seizures, TBI with SDHs, CVA, LA, COPD, and A fib who presented after a seizure and fall. According to the ED, a bystander witnessed the generalized seizure with urinary incontinence. Patient also had a witnessed clonic-tonic seizure while in CT- given 2 mg Ativan. Patient was found to have right posterior perinephric hematoma. He was initially managed in the ICU for ETOH withdrawal and seizure precautions. He is now transferred to telemetry. Plan: Seizures- 2/2 alcohol w/d +/- TBI/CVA, chronic noncompliance with antiseizure medications and alcohol cessation - BAL 131 on admission - CT head: profound encephalomalacia in bilateral frontal lobes with profound atrophy - Rib XR: Nondisplaced fractures right 9th and 10th ribs identified. - CT chest/abd/pelvis: Nonacute left rib fractures. - Seizure precautions - Loaded with Depakote 1000 mg on admission - Depakote 500 mg IV BID - Ativan 2 mg IV q6hrs [facility]- continue taper - Clonidine 0.1 mg PO q6hrs PRN - CIWA protocol (most recent 5, but patient disoriented at baseline)- Ativan 2 mg IV q3 PRN - Received banana bag - MV, folic acid and thiamine daily - F/u EEG - PT- rec RAUL - ST- soft diet/thin liquids, dysphagia therapy - ICU consulted (Nikita) - Neurology consulted (Minh) COPD exacerbation - CT chest/abd/pelvis: Fibrosis or possible linear atelectasis right lower lobe base. Cardiomegaly. Chest CT component otherwise appears nonacute. - CXR: Right lower lobe infiltrate - Discontinue Azithromycin - Discontinue Rocephin - Discontinue Vancomycin - Start Zosyn 3.375 mg IV q6hrs (started 04/13) - Duoneb q6hrs [facility], q4hrs PRN SOB - Solu-medrol 30 mg IV q12hrs- taper - MRSA screen negative - F/u HIV - F/u sputum Cx - ID consulted (Jo-Ann/Cedrick)- r/o aspiration PNA, HIV Complicated UTI with R pyelonephritis - Urine Cx- Enterococcus faecalis - Discontinue Vancomycin - Start Zosyn 3.375 mg IV q6hrs (started 04/13) - Repeat UA negative - MRSA screen negative - PSA wnl (1.8) - F/u HIV - ID consulted (Jo-Ann/Cedrick)- r/o prostate ds, HIV HTN- SBP 140s-180s - Lopressor 50 mg PO BID - Increase Norvasc to 10 mg PO daily - Clonidine 0.1 mg PO q6hrs PRN Afib, chronic- rate-controlled (HR 90s) - No anticoagulation due to high fall risk - Lopressor 50 mg PO BID Perinephric hematoma, R posterior- 2/2 fall - CT chest/abd/pelvis: Right perinephric reaction and subcapsular hematoma identified. - Monitor CBC- Hgb wnl Adrenal mass, R- incidental finding - CT chest/abd/pelvis: 2. 2.8 cm right adrenal mass. Follow-up MRI is advised to exclude malignancy though this may simply represent a benign adrenal adenoma. The appears indeterminate by the current examination. Tobacco use disorder - Nicotine patch daily Palliative consult Dispo: RAUL (referral to [facility]) when clinically improved IVF: not indicated GI ppx: Pepcid 40 mg PO QHS VTE ppx: Lovenox 40 mg SC daily, SCDs Diet: Heart healthy- soft/thin liquids Code status: full code Case was discussed with attending, Dr. Pedersen. <Manasa Pedersen - Last Filed: 04/16/18 07:54> Objective - Vital Signs/Intake and Output Vital Signs (last 24 hours): Temp Pulse Resp BP Pulse Ox 98 F 69 18 129/96 H 93 L 04/15/18 23:12 04/15/18 23:12 04/15/18 23:12 04/15/18 23:12 04/15/18 23:12 Intake and Output: 04/16/18 04/16/18 06:59 18:59 Intake Total 540 Balance 540 - Medications Medications: Current Medications Albuterol/Ipratropium (Duoneb 3 Mg/0.5 Mg (3 Ml) Ud) 3 ml IH [id number] [facility] Last Admin: 04/16/18 07:30 Dose: 3 ml Albuterol/Ipratropium (Duoneb 3 Mg/0.5 Mg (3 Ml) Ud) 3 ml IH [id number] PRN PRN Reason: Shortness of Breath Amlodipine Besylate (Norvasc) 10 mg PO DAILY [facility] Last Admin: 04/15/18 10:27 Dose: 10 mg Clonidine HCl (Catapres) 0.2 mg PO BID [facility] Last Admin: 04/15/18 18:17 Dose: 0.2 mg Enoxaparin Sodium (Lovenox) 40 mg SC DAILY [facility] PRN Reason: Protocol Last Admin: 04/15/18 10:25 Dose: 40 mg Famotidine (Pepcid) 40 mg PO HS [facility] Last Admin: 04/15/18 21:37 Dose: 40 mg Folic Acid (Folic Acid) 1 mg PO DAILY [facility] Last Admin: 04/15/18 10:30 Dose: 1 mg Piperacillin Sod/Tazobactam Sod (Zosyn 3.375 In Ns 100ml) 100 mls @ 200 mls/hr IVPB Q6 [facility] PRN Reason: Protocol Stop: 04/22/18 21:31 Last Admin: 04/16/18 05:12 Dose: 200 mls/hr Lorazepam (Ativan) 1 mg IVP Q4 PRN; Protocol PRN Reason: Symptoms of alcohol withdrawl Last Admin: 04/15/18 18:21 Dose: 1 mg Lorazepam (Ativan) 2 mg IVP Q12 [facility] PRN Reason: Protocol Last Admin: 04/15/18 21:37 Dose: 2 mg Methylprednisolone (Solu-Medrol) 20 mg IVP Q12 [facility] Last Admin: 04/15/18 21:38 Dose: 20 mg Metoprolol Tartrate (Lopressor) 50 mg PO BRKDIN [facility] Last Admin: 04/15/18 18:18 Dose: 50 mg Multivitamins (Thera Tab) 1 tab PO 0800 [facility] Last Admin: 04/15/18 08:39 Dose: 1 tab Nicotine (Nicoderm Cq) 1 patch TD DAILY [facility] Last Admin: 04/15/18 10:25 Dose: 1 patch Thiamine HCl (Vitamin B1 Tab) 100 mg PO DAILY [facility] Last Admin: 04/15/18 10:29 Dose: 100 mg Valproate Sodium (Depakene Cap) 500 mg PO BID [facility] Last Admin: 04/15/18 18:17 Dose: 500 mg - Labs Labs: 04/16/18 06:15 04/16/18 06:15 PT 11.8 SECONDS (9.4-12.5) 04/09/18 16:39 INR 1.03 04/09/18 16:39 APTT 34.7 Seconds (25.1-36.5) 04/09/18 16:39 Attending/Attestation - Attestation I have personally seen and examined this patient.: Yes I have fully participated in the care of the patient.: Yes I have reviewed all pertinent clinical information, including history, physical exam and plan: Yes Notes (Text): Patient seen and examined by me at 11:40AM with resident 04/14/18. Case including HPI, physical exam, and assessment and plan discussed with resident. Agree with above with following additions/corrections. Patient is a 62-year-old male with past medical history significant for alcohol abuse and withdrawal requiring intubation, frequent falls, coronary artery disease, CVA, traumatic brain injury with multiple subdural hematomas, seizures , atrial fibrillation, and alcoholic dementia the presented to the emergency room for seizure activity. Patient states he is feels fine. A little more awake today. Confused. Patient denies any chest pain or shortness of breath. No headaches or dizziness. No nausea, vomiting, or abdominal pain. No fevers or chills. No dysuria. Unclear if review of systems are accurate as patient with dementia and confusion. Physical exam: General: Awake and alert, sitting up in bed in no acute distress HEENT: Normocephalic, atraumatic. Extraocular muscles intact. No scleral icterus. Oropharynx is pink. Moist mucous membranes. Neck is supple. Cardiovascular: Irregularly irregular S1, S2. No rubs rubs or gallops appreciated Pulmonary: Normal respiratory effort. No rhonchi, rales, or wheezing appreciated. Gastrointestinal: Soft, nondistended, nontender. Positive bowel sounds all 4 quadrants, no guarding. Musculoskeletal: Moves all extremities, no calf tenderness, no edema appreciated. Central nervous system: Awake and alert. With baseline confusion. Dermatologic: Skin warm and dry. Assessment and plan: Patient is a 62-year-old male with past medical history significant for alcohol abuse and withdrawal requiring intubation, frequent falls, coronary artery disease, CVA, traumatic brain injury with multiple subdural hematomas, seizures, atrial fibrillation, and alcoholic dementia the presented to the emergency room for seizure activity. 1. Seizures. Likely secondary to alcohol withdrawal. Neurology following, recommendations appreciated. Continue Depakote. Continue Ativan prn. Continue CIWA protocol. Continue seizure precautions. Head CT per radiologist showed significant bifrontal partially cystic encephalomalacia changes associated with ex vacuo dialatation of the frontal horns; findings consistent with sequela of old trauma; encephalomalacia changes left frontal operculum and left posterior parieto-occipital watershed zone which could represent sequela of old trauma as well versus chronic infarcts; low-attenuation changes extend posteriorly along the anterior limbs of both internal capsules; significant central volume loss evidenced by disproportionate enlargement of ventricles compared to sulci. Rib x-rays per radiologist showed nondisplaced fractures right ninth and 10th ribs. CT chest/abdomen/pelvis per radiologist showed fibrosis or possible linear atelectasis right lower lobe base, cardiomegaly, nonacute left rib fractures; 2.8 cm right adrenal mass; right perinephric reaction and subscapular hematoma. 2. COPD exacerbation. Improving. Continue nebulizer treatments. Continue to taper Solumedrol. Continue O2 via nasal cannula as needed. 3. Pneumonia on chest xray. Health care associated pneumonia. Chest x-ray per radiologist shows right lower lobe infiltrate. ID following, recommendations appreciated. Started on Zosyn. 4. UTI. Urine culture positive for Enterococcus. ID consulted, recommendations appreciated. Continue with Zosyn. 5. ETOH abuse/withdrawal. Continue CIWA protocol. Continue scheduled and prn ativan, taper Ativan. Continue thiamine, folic acid, and multivitamin. Continue seizure precautions. 6. Hypertension. Continue Lopressor and Norvasc. 7. Chronic atrial fibrillation. Continue with Lopressor. Patient is high risk for bleeds secondary to multiple falls, noncompliance, and history of subdural hematoma. Anticoagulation not started. 8. GI/DVT prophylaxis. Pepcid and Lovenox
[2018-04-14 07:14] LABS: GRAN # 7.12 (1.4-6.5); GRAN % 81.9 % (50.0-68.0); HEMOGLOBIN 15.2 g/dL (14.0-18.0); LYMPH # 1.1 (1.2-3.4); LYMPH % 12.3 % (22.0-35.0); MEAN CELL VOLUME 97.7 fl (80.0-105.0); MEAN CORPUSCULAR HEMOGLOBIN 32.1 pg (25.0-35.0); MEAN CORPUSCULAR HGB CONC 32.9 g/dl (31.0-37.0); MEAN PLATELET VOLUME 9.8 fl (7.0-11.0); MONO # 0.5 (0.1-0.6); MONO % 5.8 % (1.0-6.0); RBC 4.73 10^6/uL (3.5-6.1); RED CELL DISTRIBUTION WIDTH 13.6 % (11.5-14.5); WHITE BLOOD COUNT 8.7 10^3/ul (4.5-11.0)
[2018-04-14 07:25] LABS: ALB/GLOB RATIO 1.3 (1.1-1.8); ALBUMIN 3.7 g/dL (3.0-4.8); ALT/SGPT 46 U/L (7-56); AST/SGOT 40 U/L (17-59); BLOOD UREA NITROGEN 18 mg/dL (7-21); CALCIUM 9.6 mg/dL (8.4-10.5); GFR NON-AFRICAN AMERICAN > 60
[2018-04-14] MEDS: Multivitamin Therapeutic Tab PO SCH (08:20)
[2018-04-14] MEDS: Enoxaparin 40 mg Syringe SC SCH (09:56)
[2018-04-14] MEDS: MethylPREDNISolone 40 mg Vial IVP SCH ×2 (09:57→22:46)
--- NOTE | 2018-04-14 10:42 | RAD ---
Date of service: 04/13/2018 HISTORY: r/o asp pna COMPARISON: 02/16/2018 FINDINGS: LUNGS: Right lower lobe infiltrate PLEURA: No significant pleural effusion identified, no pneumothorax apparent. CARDIOVASCULAR: Normal. OSSEOUS STRUCTURES: No significant abnormalities. VISUALIZED UPPER ABDOMEN: Normal. OTHER FINDINGS: None. IMPRESSION: Right lower lobe infiltrate
--- NOTE | 2018-04-14 17:31 | CP.PCM.PN ---
Subjective - Date & Time of Evaluation Date of Evaluation: 04/14/18 Time of Evaluation: 12:15 - Subjective Subjective: Comfortable, no fevers. Objective - Vital Signs/Intake and Output Vital Signs (last 24 hours): Temp Pulse Resp BP Pulse Ox 99.6 F 77 18 130/90 97 04/14/18 14:00 04/14/18 17:24 04/14/18 14:00 04/14/18 17:24 04/14/18 14:00 Intake and Output: 04/14/18 04/14/18 06:59 18:59 Intake Total 920 Output Total 500 Balance 420 - Medications Medications: Current Medications Albuterol/Ipratropium (Duoneb 3 Mg/0.5 Mg (3 Ml) Ud) 3 ml IH [id number] [facility] Last Admin: 04/14/18 14:07 Dose: 3 ml Albuterol/Ipratropium (Duoneb 3 Mg/0.5 Mg (3 Ml) Ud) 3 ml IH [id number] PRN PRN Reason: Shortness of Breath Amlodipine Besylate (Norvasc) 10 mg PO DAILY [facility] Last Admin: 04/14/18 09:56 Dose: 10 mg Clonidine HCl (Catapres) 0.1 mg PO Q6 PRN PRN Reason: Other Last Admin: 04/14/18 05:36 Dose: 0.1 mg Enoxaparin Sodium (Lovenox) 40 mg SC DAILY [facility] PRN Reason: Protocol Last Admin: 04/14/18 09:56 Dose: 40 mg Famotidine (Pepcid) 40 mg PO HS [facility] Last Admin: 04/13/18 21:41 Dose: 40 mg Folic Acid (Folic Acid) 1 mg PO DAILY [facility] Last Admin: 04/14/18 09:59 Dose: 1 mg Valproate Sodium 500 mg/ (Sodium Chloride) 105 mls @ 100 mls/hr IVPB Q12 [facility] Last Admin: 04/14/18 09:57 Dose: 100 mls/hr Piperacillin Sod/Tazobactam Sod (Zosyn 3.375 In Ns 100ml) 100 mls @ 200 mls/hr IVPB Q6 [facility] PRN Reason: Protocol Stop: 04/22/18 21:31 Last Admin: 04/14/18 17:23 Dose: 200 mls/hr Lorazepam (Ativan) 2 mg IVP Q3 PRN; Protocol PRN Reason: Symptoms of alcohol withdrawl Last Admin: 04/13/18 22:38 Dose: 2 mg Lorazepam (Ativan) 2 mg IVP Q6 [facility] PRN Reason: Protocol Last Admin: 04/14/18 17:25 Dose: 2 mg Methylprednisolone (Solu-Medrol) 30 mg IVP Q12 [facility] Last Admin: 04/14/18 09:57 Dose: 30 mg Metoprolol Tartrate (Lopressor) 50 mg PO BRKDIN [facility] Last Admin: 04/14/18 17:24 Dose: 50 mg Multivitamins (Thera Tab) 1 tab PO 0800 [facility] Last Admin: 04/14/18 08:20 Dose: 1 tab Nicotine (Nicoderm Cq) 1 patch TD DAILY [facility] Last Admin: 04/14/18 09:55 Dose: 1 patch Thiamine HCl (Vitamin B1 Tab) 100 mg PO DAILY [facility] Last Admin: 04/14/18 09:57 Dose: 100 mg - Labs Labs: 04/14/18 06:30 04/14/18 06:30 PT 11.8 SECONDS (9.4-12.5) 04/09/18 16:39 INR 1.03 04/09/18 16:39 APTT 34.7 Seconds (25.1-36.5) 04/09/18 16:39 - Constitutional Appears: Chronically Ill - Head Exam Head Exam: NORMAL INSPECTION - Respiratory Exam Respiratory Exam: Decreased Breath Sounds - Cardiovascular Exam Cardiovascular Exam: +S1, +S2 - GI/Abdominal Exam GI & Abdominal Exam: Soft. absent: Tenderness Assessment and Plan - Assessment and Plan (Free Text) Plan: Assessment severe sepsis with thrombocytopenia due to Enterococcus right sided pyelonephritis seizure disorder CAD HTN COPD significant smoking S/P hernia repair Plan continue Zosyn and will monitor clinically
[2018-04-15] MEDS: Valproate 500 MG in Sodium Chloride 0.9% 100 ML IVPB SCH ×2 (00:21→10:30)
[2018-04-15] MEDS: Albuterol-Ipratrop 3 mg / 0.5 (3 ml) UD IH SCH ×4 (02:30→23:38)
[2018-04-15] MEDS: Piperacillin/Tazobact 3.375 gm 100 ML IVPB SCH ×3 (05:56→18:18)
--- NOTE | 2018-04-15 06:03 | CP.PCM.PN ---
<Nehal Benitez - Last Filed: 04/15/18 18:13> Subjective - Date & Time of Evaluation Date of Evaluation: 04/15/18 Time of Evaluation: 07:15 - Subjective Subjective: PGY-1 Nehal Benitez D.O. Medicine progress note for Dr. Pedersen's service: Patient is seen and examined this morning. No over night seizure-activity. Patient is clean shaven. He is oriented to person. He is able to state that he lives with his daughter, Rosa, in [place]. He can follow some simple commands. He does not have any spontaneous speech. Objective - Vital Signs/Intake and Output Vital Signs (last 24 hours): Temp Pulse Resp BP Pulse Ox 99.6 F 81 18 136/97 H 97 04/14/18 14:00 04/15/18 05:52 04/14/18 14:00 04/15/18 05:52 04/14/18 14:00 Intake and Output: 04/14/18 04/15/18 18:59 06:59 Intake Total 480 Balance 480 - Medications Medications: Current Medications Albuterol/Ipratropium (Duoneb 3 Mg/0.5 Mg (3 Ml) Ud) 3 ml IH [id number] [facility] Last Admin: 04/14/18 21:15 Dose: 3 ml Albuterol/Ipratropium (Duoneb 3 Mg/0.5 Mg (3 Ml) Ud) 3 ml IH [id number] PRN PRN Reason: Shortness of Breath Amlodipine Besylate (Norvasc) 10 mg PO DAILY [facility] Last Admin: 04/14/18 09:56 Dose: 10 mg Clonidine HCl (Catapres) 0.1 mg PO Q6 PRN PRN Reason: Other Last Admin: 04/15/18 04:57 Dose: 0.1 mg Enoxaparin Sodium (Lovenox) 40 mg SC DAILY [facility] PRN Reason: Protocol Last Admin: 04/14/18 09:56 Dose: 40 mg Famotidine (Pepcid) 40 mg PO HS [facility] Last Admin: 04/14/18 22:56 Dose: Not Given Folic Acid (Folic Acid) 1 mg PO DAILY [facility] Last Admin: 04/14/18 09:59 Dose: 1 mg Valproate Sodium 500 mg/ (Sodium Chloride) 105 mls @ 100 mls/hr IVPB Q12 [facility] Last Admin: 04/15/18 00:21 Dose: 100 mls/hr Piperacillin Sod/Tazobactam Sod (Zosyn 3.375 In Ns 100ml) 100 mls @ 200 mls/hr IVPB Q6 [facility] PRN Reason: Protocol Stop: 04/22/18 21:31 Last Admin: 04/15/18 05:56 Dose: 200 mls/hr Lorazepam (Ativan) 2 mg IVP Q3 PRN; Protocol PRN Reason: Symptoms of alcohol withdrawl Last Admin: 04/15/18 04:54 Dose: 2 mg Lorazepam (Ativan) 2 mg IVP Q6 [facility] PRN Reason: Protocol Last Admin: 04/14/18 17:25 Dose: 2 mg Methylprednisolone (Solu-Medrol) 30 mg IVP Q12 [facility] Last Admin: 04/14/18 22:46 Dose: 30 mg Metoprolol Tartrate (Lopressor) 50 mg PO BRKDIN [facility] Last Admin: 04/14/18 17:24 Dose: 50 mg Multivitamins (Thera Tab) 1 tab PO 0800 [facility] Last Admin: 04/14/18 08:20 Dose: 1 tab Nicotine (Nicoderm Cq) 1 patch TD DAILY [facility] Last Admin: 04/14/18 09:55 Dose: 1 patch Thiamine HCl (Vitamin B1 Tab) 100 mg PO DAILY [facility] Last Admin: 04/14/18 09:57 Dose: 100 mg - Labs Labs: 04/14/18 06:30 04/14/18 06:30 PT 11.8 SECONDS (9.4-12.5) 04/09/18 16:39 INR 1.03 04/09/18 16:39 APTT 34.7 Seconds (25.1-36.5) 04/09/18 16:39 - Constitutional Appears: Non-toxic, No Acute Distress - Head Exam Head Exam: ATRAUMATIC, NORMAL INSPECTION, NORMOCEPHALIC - Eye Exam Eye Exam: EOMI Additional comments: R ptosis - ENT Exam ENT Exam: Mucous Membranes Moist - Neck Exam Neck Exam: Normal Inspection - Respiratory Exam Respiratory Exam: Clear to Ausculation Bilateral, NORMAL BREATHING PATTERN - Cardiovascular Exam Cardiovascular Exam: Irregular Rhythm (Afib), +S1, +S2 - GI/Abdominal Exam GI & Abdominal Exam: Soft. absent: Tenderness - Rectal Exam Rectal Exam: Deferred - Extremities Exam Extremities Exam: Normal Inspection. absent: Pedal Edema - Neurological Exam Neurological Exam: Alert, Awake. absent: Oriented x3 (person only) - Psychiatric Exam Psychiatric exam: Flat Affect - Skin Skin Exam: Dry, Intact, Normal Color, Warm Assessment and Plan - Assessment and Plan (Free Text) Assessment: Patient is a 62 yo male with a history of alcohol use disorder with subsequent cirrhosis, dementia, and w/d seizures, TBI with SDHs, CVA, SC, COPD, and A fib who presented after a seizure and fall. According to the ED, a bystander witnessed the generalized seizure with urinary incontinence. Patient also had a witnessed clonic-tonic seizure while in CT- given 2 mg Ativan. Patient was found to have right posterior perinephric hematoma. He was initially managed in the ICU for ETOH withdrawal and seizure precautions. He is now transferred to telemetry. Plan: Seizures- 2/2 alcohol w/d +/- TBI/CVA, chronic noncompliance with antiseizure medications and alcohol cessation - BAL 131 on admission - CT head: profound encephalomalacia in bilateral frontal lobes with profound atrophy - Rib XR: Nondisplaced fractures right 9th and 10th ribs identified. - CT chest/abd/pelvis: Nonacute left rib fractures. - Seizure precautions - Loaded with Depakote 1000 mg on admission - Depakene 500 mg PO BID - Ativan 2 mg IV q12hrs [facility]- continue taper - CIWA protocol (wide range 0-9)- Ativan 1 mg IV q4 PRN - Received banana bag - MV, folic acid and thiamine daily - F/u EEG - PT- rec RAUL - ST- soft diet/thin liquids, dysphagia therapy - ICU consulted (Nikita) - Neurology consulted (Minh) COPD exacerbation with evidence of pneumonia - CT chest/abd/pelvis: Fibrosis or possible linear atelectasis right lower lobe base. Cardiomegaly. Chest CT component otherwise appears nonacute. - CXR: Right lower lobe infiltrate - Zosyn 3.375 mg IV q6hrs (started 04/13) - Duoneb q6hrs [facility], q4hrs PRN SOB - Solu-medrol 20 mg IV q12hrs- taper - MRSA screen negative - HIV nonreactive - ID consulted (Jo-Ann/Cedrick)- r/o aspiration pneumonia, HIV Complicated UTI with R pyelonephritis - Urine Cx- Enterococcus faecalis - Zosyn 3.375 mg IV q6hrs (started 04/13) - Repeat UA negative - MRSA screen negative - PSA wnl (1.8) - HIV nonreactive - ID consulted (Jo-Ann/Cedrick)- r/o prostate ds, HIV HTN- SBP 140s-180s - Lopressor 50 mg PO BID - Norvasc to 10 mg PO daily - Clonidine 0.2 mg PO BID Afib, chronic- rate-controlled (HR 90s) - No anticoagulation due to high fall risk - Lopressor 50 mg PO BID Perinephric hematoma, R posterior- 2/2 fall - CT chest/abd/pelvis: Right perinephric reaction and subcapsular hematoma identified. - Monitor CBC- Hgb wnl Adrenal mass, R- incidental finding - CT chest/abd/pelvis: 2. 2.8 cm right adrenal mass. Follow-up MRI is advised to exclude malignancy though this may simply represent a benign adrenal adenoma. The appears indeterminate by the current examination. Tobacco use disorder - Nicotine patch daily Palliative consult Dispo: RAUL (referral to [facility]) when clinically improved IVF: not indicated GI ppx: Pepcid 40 mg PO QHS VTE ppx: Lovenox 40 mg SC daily, SCDs Diet: Heart healthy- soft/thin liquids Code status: full code Case was discussed with attending, Dr. Pedersen. <Manasa Pedersen R - Last Filed: 04/16/18 17:39> Objective - Vital Signs/Intake and Output Vital Signs (last 24 hours): Temp Pulse Resp BP Pulse Ox 98.2 F 85 20 113/86 100 04/16/18 14:00 04/16/18 14:00 04/16/18 14:00 04/16/18 14:00 04/16/18 14:00 Intake and Output: 04/16/18 04/16/18 06:59 18:59 Intake Total 540 Balance 540 - Medications Medications: Current Medications Albuterol/Ipratropium (Duoneb 3 Mg/0.5 Mg (3 Ml) Ud) 3 ml IH [id number] [facility] Last Admin: 04/16/18 13:36 Dose: 3 ml Albuterol/Ipratropium (Duoneb 3 Mg/0.5 Mg (3 Ml) Ud) 3 ml IH [id number] PRN PRN Reason: Shortness of Breath Amlodipine Besylate (Norvasc) 10 mg PO DAILY [facility] Last Admin: 04/16/18 11:43 Dose: 10 mg Ampicillin (Ampicillin) 500 mg PO QID [facility] PRN Reason: Protocol Stop: 04/26/18 14:01 Last Admin: 04/16/18 15:27 Dose: 500 mg Clonidine HCl (Catapres) 0.2 mg PO BID [facility] Last Admin: 04/16/18 11:42 Dose: 0.2 mg Enoxaparin Sodium (Lovenox) 40 mg SC DAILY [facility] PRN Reason: Protocol Last Admin: 04/16/18 11:37 Dose: 40 mg Famotidine (Pepcid) 40 mg PO HS [facility] Last Admin: 04/15/18 21:37 Dose: 40 mg Folic Acid (Folic Acid) 1 mg PO DAILY [facility] Last Admin: 04/16/18 11:41 Dose: 1 mg Lorazepam (Ativan) 1 mg PO Q4 PRN; Protocol PRN Reason: Symptoms of alcohol withdrawl Methylprednisolone (Solu-Medrol) 20 mg IVP Q12 [facility] Last Admin: 04/16/18 11:38 Dose: 20 mg Metoprolol Tartrate (Lopressor) 50 mg PO BRKDIN [facility] Last Admin: 04/16/18 11:42 Dose: 50 mg Multivitamins (Thera Tab) 1 tab PO 0800 [facility] Last Admin: 04/16/18 08:44 Dose: 1 tab Nicotine (Nicoderm Cq) 1 patch TD DAILY [facility] Last Admin: 04/16/18 11:38 Dose: 1 patch Thiamine HCl (Vitamin B1 Tab) 100 mg PO DAILY [facility] Last Admin: 04/16/18 11:41 Dose: 100 mg Valproate Sodium (Depakene Cap) 500 mg PO BID [facility] Last Admin: 04/16/18 11:41 Dose: 500 mg - Labs Labs: 04/16/18 06:15 04/16/18 06:15 PT 11.8 SECONDS (9.4-12.5) 04/09/18 16:39 INR 1.03 04/09/18 16:39 APTT 34.7 Seconds (25.1-36.5) 04/09/18 16:39 Attending/Attestation - Attestation I have personally seen and examined this patient.: Yes I have fully participated in the care of the patient.: Yes I have reviewed all pertinent clinical information, including history, physical exam and plan: Yes Notes (Text): Patient seen and examined by me at 11:20AM with resident 04/15/18. Case including HPI, physical exam, and assessment and plan discussed with resident. Agree with above with following additions/corrections. Patient is a 62-year-old male with past medical history significant for alcohol abuse and withdrawal requiring intubation, frequent falls, coronary artery disease, CVA, traumatic brain injury with multiple subdural hematomas, seizures , atrial fibrillation, and alcoholic dementia the presented to the emergency room for seizure activity. Patient more awake and alert. Still with confusion. Patient states he lives alone. However, patient lives with his daughter. Patient denies any chest pain or shortness of breath. No headaches or dizziness. No nausea, vomiting, or abdominal pain. No fevers or chills. No dysuria. Patient is afebrile. Unclear if review of systems are accurate as patient with dementia and confusion. Physical exam: General: Awake and alert, sitting up in bed in no acute distress HEENT: Normocephalic, atraumatic. Extraocular muscles intact. No scleral icterus. Oropharynx is pink. Moist mucous membranes. Neck is supple. Cardiovascular: Irregularly irregular S1, S2. No rubs rubs or gallops appreciated Pulmonary: Normal respiratory effort. No rhonchi, rales, or wheezing appreciated. Gastrointestinal: Soft, nondistended, nontender. Positive bowel sounds all 4 quadrants, no guarding. Musculoskeletal: Moves all extremities, no calf tenderness, no edema appreciated. Central nervous system: Awake and alert. With baseline confusion. Dermatologic: Skin warm and dry. Assessment and plan: Patient is a 62-year-old male with past medical history significant for alcohol abuse and withdrawal requiring intubation, frequent falls, coronary artery disease, CVA, traumatic brain injury with multiple subdural hematomas, seizures, atrial fibrillation, and alcoholic dementia the presented to the emergency room for seizure activity. 1. Seizures. Likely secondary to alcohol withdrawal. Neurology following, recommendations appreciated. Continue Depakote. Changed to PO. Continue Ativan prn. Continue CIWA protocol. Continue seizure precautions. Head CT per radiologist showed significant bifrontal partially cystic encephalomalacia changes associated with ex vacuo dialatation of the frontal horns; findings consistent with sequela of old trauma; encephalomalacia changes left frontal operculum and left posterior parieto-occipital watershed zone which could represent sequela of old trauma as well versus chronic infarcts; low- attenuation changes extend posteriorly along the anterior limbs of both internal capsules; significant central volume loss evidenced by disproportionate enlargement of ventricles compared to sulci. Rib x-rays per radiologist showed nondisplaced fractures right ninth and 10th ribs. CT chest/ abdomen/pelvis per radiologist showed fibrosis or possible linear atelectasis right lower lobe base, cardiomegaly, nonacute left rib fractures; 2.8 cm right adrenal mass; right perinephric reaction and subscapular hematoma. 2. COPD exacerbation. Resolving. Continue nebulizer treatments. Continue to taper Solumedrol. Continue O2 via nasal cannula as needed. 3. Pneumonia on chest xray. Health care associated pneumonia. Chest x-ray per radiologist shows right lower lobe infiltrate. ID following, recommendations appreciated. Continue Zosyn. 4. UTI. Urine culture positive for Enterococcus. ID consulted, recommendations appreciated. Continue with Zosyn. 5. ETOH abuse/withdrawal. Continue CIWA protocol. Continue scheduled and prn ativan, continue to taper. Continue thiamine, folic acid, and multivitamin. Continue seizure precautions. 6. Hypertension. Continue Lopressor and Norvasc. Placed on clonidine. 7. Chronic atrial fibrillation. Continue with Lopressor. Patient is high risk for bleeds secondary to multiple falls, noncompliance, and history of subdural hematoma. Anticoagulation not started. 8. GI/DVT prophylaxis. Pepcid and Lovenox
[2018-04-15 06:48] LABS: BASO # 0.01 K/mm3 (0.0-2.0); BASO % 0.1 % (0.0-3.0); GRAN # 9.06 (1.4-6.5); GRAN % 86.3 % (50.0-68.0); HEMOGLOBIN 15.9 g/dL (14.0-18.0); LYMPH # 1.1 (1.2-3.4); LYMPH % 10.1 % (22.0-35.0); MEAN CELL VOLUME 96.3 fl (80.0-105.0); MEAN CORPUSCULAR HEMOGLOBIN 32.9 pg (25.0-35.0); MEAN CORPUSCULAR HGB CONC 34.1 g/dl (31.0-37.0); MEAN PLATELET VOLUME 9.8 fl (7.0-11.0); MONO # 0.4 (0.1-0.6); MONO % 3.5 % (1.0-6.0); RBC 4.84 10^6/uL (3.5-6.1); RED CELL DISTRIBUTION WIDTH 13.4 % (11.5-14.5); WHITE BLOOD COUNT 10.5 10^3/ul (4.5-11.0)
[2018-04-15 07:02] LABS: ALB/GLOB RATIO 1.3 (1.1-1.8); ALBUMIN 3.7 g/dL (3.0-4.8); ALT/SGPT 46 U/L (7-56); AST/SGOT 39 U/L (17-59); BLOOD UREA NITROGEN 19 mg/dL (7-21); CALCIUM 9.5 mg/dL (8.4-10.5); GFR NON-AFRICAN AMERICAN > 60
[2018-04-15] MEDS: Multivitamin Therapeutic Tab PO SCH (08:39)
--- NOTE | 2018-04-15 09:55 | CP.PCM.CON ---
History of Present Illness - History of Present Illness History of Present Illness: Podiatry Consult Note for Dr. Fernandez 62M with PMH alcohol abuse/withdrawal requiring intubation, frequent falls, [place] ( several years ago, denies stents), CVA (3 years ago), traumatic brain injury with multiple subdural hematomas (8 years ago), seizures, and alcoholic dementia , afib seen at bedside complaining of elongated, thickened, painful toenails. Patient is AAO x 3 and NAD at time of visit. Per nursing, no acute overnight events or new pedal complaints at this time. No N/V/F/C/CP/SOB/D Review of Systems - Review of Systems All systems: reviewed and no additional remarkable complaints except Review of Systems: as per HPI Past Patient History - Infectious Disease Hx of Infectious Diseases: None - Tetanus Immunizations Tetanus Immunization: Unknown - Past Social History Smoking Status: Heavy Smoker > 10 Cigarettes Daily - CARDIAC Hx Cardiac Disorders: Yes ([place], A FIb) Hx Hypertension: Yes - PULMONARY Hx Respiratory Disorders: Yes Hx Chronic Obstructive Pulmonary Disease (COPD): Yes Other/Comment: HX SMOKING - NEUROLOGICAL HX Cerebrovascular Accident: Yes (3 Y/ago) - HEENT Hx HEENT Problems: No - RENAL Hx Chronic Kidney Disease: No - ENDOCRINE/METABOLIC Hx Endocrine Disorders: No - HEMATOLOGICAL/ONCOLOGICAL Hx Blood Disorders: No - INTEGUMENTARY Hx Dermatological Problems: No - MUSCULOSKELETAL/RHEUMATOLOGICAL Hx Musculoskeletal Disorders: Yes Hx Falls: Yes Hx Fractures: Yes Hx Herniated Disk: Yes Hx Unsteady Gait: Yes - GASTROINTESTINAL Hx Gastrointestinal Disorders: Yes Other/Comment: HERNIA REPAIR - GENITOURINARY/GYNECOLOGICAL Hx Genitourinary Disorders: No - PSYCHIATRIC Hx Psychophysiologic Disorder: Yes Hx Substance Use: No - SURGICAL HISTORY Hx Surgeries: Yes - ANESTHESIA Hx Anesthesia: No Meds Allergies/Adverse Reactions: Allergies Allergy/AdvReac Type Severity Reaction Status Date / Time No Known Allergies Allergy Verified 04/09/18 15:54 - Medications Medications: Current Medications Albuterol/Ipratropium (Duoneb 3 Mg/0.5 Mg (3 Ml) Ud) 3 ml IH [id number] [facility] Last Admin: 04/15/18 07:11 Dose: 3 ml Albuterol/Ipratropium (Duoneb 3 Mg/0.5 Mg (3 Ml) Ud) 3 ml IH [id number] PRN PRN Reason: Shortness of Breath Amlodipine Besylate (Norvasc) 10 mg PO DAILY [facility] Last Admin: 04/14/18 09:56 Dose: 10 mg Clonidine HCl (Catapres) 0.2 mg PO BID [facility] Enoxaparin Sodium (Lovenox) 40 mg SC DAILY [facility] PRN Reason: Protocol Last Admin: 04/14/18 09:56 Dose: 40 mg Famotidine (Pepcid) 40 mg PO HS [facility] Last Admin: 04/14/18 22:56 Dose: Not Given Folic Acid (Folic Acid) 1 mg PO DAILY [facility] Last Admin: 04/14/18 09:59 Dose: 1 mg Valproate Sodium 500 mg/ (Sodium Chloride) 105 mls @ 100 mls/hr IVPB Q12 [facility] Last Admin: 04/15/18 00:21 Dose: 100 mls/hr Piperacillin Sod/Tazobactam Sod (Zosyn 3.375 In Ns 100ml) 100 mls @ 200 mls/hr IVPB Q6 [facility] PRN Reason: Protocol Stop: 04/22/18 21:31 Last Admin: 04/15/18 05:56 Dose: 200 mls/hr Lorazepam (Ativan) 2 mg IVP Q3 PRN; Protocol PRN Reason: Symptoms of alcohol withdrawl Last Admin: 04/15/18 04:54 Dose: 2 mg Lorazepam (Ativan) 2 mg IVP Q6 [facility] PRN Reason: Protocol Last Admin: 04/15/18 06:35 Dose: 2 mg Methylprednisolone (Solu-Medrol) 30 mg IVP Q12 [facility] Last Admin: 04/14/18 22:46 Dose: 30 mg Metoprolol Tartrate (Lopressor) 50 mg PO BRKDIN [facility] Last Admin: 04/14/18 17:24 Dose: 50 mg Multivitamins (Thera Tab) 1 tab PO 0800 [facility] Last Admin: 04/15/18 08:39 Dose: 1 tab Nicotine (Nicoderm Cq) 1 patch TD DAILY [facility] Last Admin: 04/14/18 09:55 Dose: 1 patch Thiamine HCl (Vitamin B1 Tab) 100 mg PO DAILY [facility] Last Admin: 04/14/18 09:57 Dose: 100 mg Physical Exam - Constitutional Appears: Well, Non-toxic, No Acute Distress - Extremities Exam Additional comments: LE focused exam: Vasc: DP/PT pulses faintly palpable 1/4 b/l. Skin temperature warm to warm from proximal to distal WNL. CFT < 3 seconds to all digits. No edema noted b/l Neuro: Epicritic and protective sensation grossly intact b/l Derm: Elongated, dystrophic, thickened nails 1-5 b/l. Otherwise, no open lesions , wounds, maceration, xerosis, abnormal pigmentation or abnormal growths noted b /l MSK: Pain with palpation of all toenails. Unable to assess MMT or ROM secondary to patient condition - Neurological Exam Neurological exam: Alert, Oriented x3 - Psychiatric Exam Psychiatric exam: Normal Affect, Normal Mood Results - Vital Signs Recent Vital Signs: Last Vital Signs Temp 98 F 04/15/18 06:00 Pulse 98 H 04/15/18 06:00 Resp 20 04/15/18 06:00 BP 162/22 H 04/15/18 06:00 Pulse Ox 94 L 04/15/18 06:00 - Labs Result Diagrams: 04/15/18 06:15 04/15/18 06:15 Labs: Laboratory Results - last 24 hr 04/13/18 04/14/18 04/15/18 22:10 07:00 06:15 WBC 10.5 D RBC 4.84 Hgb 15.9 Hct 46.6 MCV 96.3 MCH 32.9 MCHC 34.1 RDW 13.4 Plt Count 239 MPV 9.8 Gran % 86.3 H Lymph % (Auto) 10.1 L Story % (Auto) 3.5 Eos % (Auto) 0.0 L Baso % (Auto) 0.1 Gran # 9.06 H Lymph # (Auto) 1.1 L Story # (Auto) 0.4 Eos # (Auto) 0.0 Baso # (Auto) 0.01 Sodium Potassium Chloride Carbon Dioxide Anion Gap BUN Creatinine Est GFR ( Amer) Est GFR (Non-Af Amer) Random Glucose Calcium Phosphorus Magnesium Total Bilirubin AST ALT Alkaline Phosphatase Total Protein Albumin Globulin Albumin/Globulin Ratio Procalcitonin 0.15 L HIV 1&2 Ag/Ab, 4th Gen Nonreactive 04/15/18 06:15 WBC RBC Hgb Hct MCV MCH MCHC RDW Plt Count MPV Gran % Lymph % (Auto) Story % (Auto) Eos % (Auto) Baso % (Auto) Gran # Lymph # (Auto) Story # (Auto) Eos # (Auto) Baso # (Auto) Sodium 138 Potassium 4.3 Chloride 102 Carbon Dioxide 27 Anion Gap 13 BUN 19 Creatinine 0.7 L Est GFR ( Amer) > 60 Est GFR (Non-Af Amer) > 60 Random Glucose 145 H Calcium 9.5 Phosphorus 4.6 H Magnesium 2.2 Total Bilirubin 0.9 AST 39 ALT 46 Alkaline Phosphatase 73 Total Protein 6.6 Albumin 3.7 Globulin 2.9 Albumin/Globulin Ratio 1.3 Procalcitonin HIV 1&2 Ag/Ab, 4th Gen Assessment & Plan - Assessment and Plan (Free Text) Assessment: 62M seen for painful, elongated, thickened, dystrophic toenails 1-5 b/l Plan: Patient seen and evaluated Plan discussed with attending Dr. Fernandez Afebrile, absent leukocytosis Nails 1-5 debrided down to an appropriate length using nail nippers without incident No plan for surgical intervention at this time Podiatry will sign off at this time Please reconsult in future as needed - Date & Time Date: 04/15/18 Time: 09:57
[2018-04-15] MEDS: Enoxaparin 40 mg Syringe SC SCH (10:25)
[2018-04-15] MEDS: MethylPREDNISolone 40 mg Vial IVP SCH ×2 (10:25→21:38)
--- NOTE | 2018-04-15 12:35 | PQF ---
PROVIDER RESPONSE TEXT: Patient does have right lower lobe infiltrate indicating that patient does have pneumonia with possib le aspiration,. REVIEWER QUERY TEXT: Clarification of Clinical Diagnostic Findings Please clarify documentation or clinical relevance for the clinical / diagnostic findings or whether those are insignificant or unable to be further specified. The patient's Clinical Indicators include: CXR done on 04/13 to r/o aspiration revealed right lower lobe infiltrate. Resident Dr. Nehal Benitez documented this finding on PN of 04/15 along with change of antibiotics . Please be more specific, if possible, if this finding is indicative of a pneumonia, aspiration, other possible source. Query created by: Yamila Gage on 04/15/2018 10:47 AM Electronically signed by: Manasa Pedersen DO 04/15/2018 12:33 PM
--- NOTE | 2018-04-15 22:26 | PN ---
DATE: 04/15/2018 SUBJECTIVE: The patient is in bed, in no acute distress, nontoxic. PHYSICAL EXAMINATION: VITAL SIGNS: Temperature is 98, blood pressure is 117/80, respiratory rate of 18. HEENT: Unremarkable. NECK: Supple. LUNGS: Have decreased breath sounds. HEART: Normal S1, S2. ABDOMEN: Soft. LABORATORY DATA: Reveals a white count of 10,000, hemoglobin of 15, platelets of 239. Chemistries are noted and urinalysis is noted and microbiology reveals urine culture with Enterococcus faecalis. Review of orders reveals the patient to be on Zosyn. ASSESSMENT AND PLAN: This is a 62-year-old with severe sepsis and thrombocytopenia due to Enterococcus right-sided pyelonephritis, seizures, coronary artery disease, hypertension, chronic obstructive lung disease. On Zosyn, tolerating the antibiotics well. Leonel Philip MD
--- NOTE | 2018-04-16 00:32 | CP.PCM.PN ---
Subjective - Date & Time of Evaluation Date of Evaluation: 04/15/18 Time of Evaluation: 11:00 - Subjective Subjective: Mr Graham is doing well this morning. There are no further seizures noted. on exam; normal neurological exam. Objective - Vital Signs/Intake and Output Vital Signs (last 24 hours): Temp Pulse Resp BP Pulse Ox 98 F 69 18 129/96 H 93 L 04/15/18 23:12 04/15/18 23:12 04/15/18 23:12 04/15/18 23:12 04/15/18 23:12 Intake and Output: 04/15/18 04/16/18 18:59 06:59 Intake Total 540 Balance 540 - Medications Medications: Current Medications Albuterol/Ipratropium (Duoneb 3 Mg/0.5 Mg (3 Ml) Ud) 3 ml IH [id number] [facility] Last Admin: 04/15/18 23:38 Dose: 3 ml Albuterol/Ipratropium (Duoneb 3 Mg/0.5 Mg (3 Ml) Ud) 3 ml IH [id number] PRN PRN Reason: Shortness of Breath Amlodipine Besylate (Norvasc) 10 mg PO DAILY [facility] Last Admin: 04/15/18 10:27 Dose: 10 mg Clonidine HCl (Catapres) 0.2 mg PO BID [facility] Last Admin: 04/15/18 18:17 Dose: 0.2 mg Enoxaparin Sodium (Lovenox) 40 mg SC DAILY [facility] PRN Reason: Protocol Last Admin: 04/15/18 10:25 Dose: 40 mg Famotidine (Pepcid) 40 mg PO HS [facility] Last Admin: 04/15/18 21:37 Dose: 40 mg Folic Acid (Folic Acid) 1 mg PO DAILY [facility] Last Admin: 04/15/18 10:30 Dose: 1 mg Piperacillin Sod/Tazobactam Sod (Zosyn 3.375 In Ns 100ml) 100 mls @ 200 mls/hr IVPB Q6 [facility] PRN Reason: Protocol Stop: 04/22/18 21:31 Last Admin: 04/15/18 18:18 Dose: 200 mls/hr Lorazepam (Ativan) 1 mg IVP Q4 PRN; Protocol PRN Reason: Symptoms of alcohol withdrawl Last Admin: 04/15/18 18:21 Dose: 1 mg Lorazepam (Ativan) 2 mg IVP Q12 [facility] PRN Reason: Protocol Last Admin: 04/15/18 21:37 Dose: 2 mg Methylprednisolone (Solu-Medrol) 20 mg IVP Q12 [facility] Last Admin: 04/15/18 21:38 Dose: 20 mg Metoprolol Tartrate (Lopressor) 50 mg PO BRKDIN [facility] Last Admin: 04/15/18 18:18 Dose: 50 mg Multivitamins (Thera Tab) 1 tab PO 0800 [facility] Last Admin: 04/15/18 08:39 Dose: 1 tab Nicotine (Nicoderm Cq) 1 patch TD DAILY [facility] Last Admin: 04/15/18 10:25 Dose: 1 patch Thiamine HCl (Vitamin B1 Tab) 100 mg PO DAILY [facility] Last Admin: 04/15/18 10:29 Dose: 100 mg Valproate Sodium (Depakene Cap) 500 mg PO BID [facility] Last Admin: 04/15/18 18:17 Dose: 500 mg - Labs Labs: 04/15/18 06:15 04/15/18 06:15 PT 11.8 SECONDS (9.4-12.5) 04/09/18 16:39 INR 1.03 04/09/18 16:39 APTT 34.7 Seconds (25.1-36.5) 04/09/18 16:39 Assessment and Plan - Assessment and Plan (Free Text) Assessment: 62 yr old male with seizures secondary to alcohol use, now stable on depakote. patient may be dscharged with neurology follow up. thank you solange Juarez
[2018-04-16] MEDS: Piperacillin/Tazobact 3.375 gm 100 ML IVPB SCH ×3 (00:40→11:36)
[2018-04-16] MEDS: Albuterol-Ipratrop 3 mg / 0.5 (3 ml) UD IH SCH ×3 (04:17→13:36)
[2018-04-16 07:05] LABS: HEMOGLOBIN 16.7 g/dL (14.0-18.0); MEAN CELL VOLUME 97.8 fl (80.0-105.0); MEAN CORPUSCULAR HEMOGLOBIN 32.8 pg (25.0-35.0); MEAN CORPUSCULAR HGB CONC 33.5 g/dl (31.0-37.0); MEAN PLATELET VOLUME 9.7 fl (7.0-11.0); RBC 5.09 10^6/uL (3.5-6.1); RED CELL DISTRIBUTION WIDTH 13.5 % (11.5-14.5); WHITE BLOOD COUNT 11.3 10^3/ul (4.5-11.0)
[2018-04-16 07:30] LABS: BLOOD UREA NITROGEN 23 mg/dL (7-21); CALCIUM 9.8 mg/dL (8.4-10.5); GFR NON-AFRICAN AMERICAN > 60
[2018-04-16 08:16] VITALS: RESP 20
[2018-04-16] MEDS: Multivitamin Therapeutic Tab PO SCH (08:44)
[2018-04-16] MEDS: Enoxaparin 40 mg Syringe SC SCH (11:37)
[2018-04-16] MEDS: MethylPREDNISolone 40 mg Vial IVP SCH (11:38)
[2018-04-16 14:54] VITALS: BP 113/86; PULSE 85; TEMP 98.2; O2SAT 100
--- NOTE | 2018-04-16 16:37 | CP.PCM.PN ---
Subjective - Date & Time of Evaluation Date of Evaluation: 04/16/18 Time of Evaluation: 13:40 - Subjective Subjective: Comfortable in bed, no fevers. Objective - Vital Signs/Intake and Output Vital Signs (last 24 hours): Temp Pulse Resp BP Pulse Ox 97.7 F 87 20 138/99 H 96 04/16/18 06:00 04/16/18 11:42 04/16/18 06:00 04/16/18 11:43 04/16/18 06:00 Intake and Output: 04/16/18 04/16/18 06:59 18:59 Intake Total 540 Balance 540 - Medications Medications: Current Medications Albuterol/Ipratropium (Duoneb 3 Mg/0.5 Mg (3 Ml) Ud) 3 ml IH [id number] [facility] Last Admin: 04/16/18 07:30 Dose: 3 ml Albuterol/Ipratropium (Duoneb 3 Mg/0.5 Mg (3 Ml) Ud) 3 ml IH [id number] PRN PRN Reason: Shortness of Breath Amlodipine Besylate (Norvasc) 10 mg PO DAILY [facility] Last Admin: 04/16/18 11:43 Dose: 10 mg Clonidine HCl (Catapres) 0.2 mg PO BID [facility] Last Admin: 04/16/18 11:42 Dose: 0.2 mg Enoxaparin Sodium (Lovenox) 40 mg SC DAILY [facility] PRN Reason: Protocol Last Admin: 04/16/18 11:37 Dose: 40 mg Famotidine (Pepcid) 40 mg PO HS [facility] Last Admin: 04/15/18 21:37 Dose: 40 mg Folic Acid (Folic Acid) 1 mg PO DAILY [facility] Last Admin: 04/16/18 11:41 Dose: 1 mg Piperacillin Sod/Tazobactam Sod (Zosyn 3.375 In Ns 100ml) 100 mls @ 200 mls/hr IVPB Q6 [facility] PRN Reason: Protocol Stop: 04/22/18 21:31 Last Admin: 04/16/18 11:36 Dose: 200 mls/hr Lorazepam (Ativan) 1 mg PO Q4 PRN; Protocol PRN Reason: Symptoms of alcohol withdrawl Methylprednisolone (Solu-Medrol) 20 mg IVP Q12 [facility] Last Admin: 04/16/18 11:38 Dose: 20 mg Metoprolol Tartrate (Lopressor) 50 mg PO BRKDIN [facility] Last Admin: 04/16/18 11:42 Dose: 50 mg Multivitamins (Thera Tab) 1 tab PO 0800 [facility] Last Admin: 04/16/18 08:44 Dose: 1 tab Nicotine (Nicoderm Cq) 1 patch TD DAILY [facility] Last Admin: 04/16/18 11:38 Dose: 1 patch Thiamine HCl (Vitamin B1 Tab) 100 mg PO DAILY [facility] Last Admin: 04/16/18 11:41 Dose: 100 mg Valproate Sodium (Depakene Cap) 500 mg PO BID [facility] Last Admin: 04/16/18 11:41 Dose: 500 mg - Labs Labs: 04/16/18 06:15 04/16/18 06:15 PT 11.8 SECONDS (9.4-12.5) 04/09/18 16:39 INR 1.03 04/09/18 16:39 APTT 34.7 Seconds (25.1-36.5) 04/09/18 16:39 - Constitutional Appears: Non-toxic, No Acute Distress - Head Exam Head Exam: NORMAL INSPECTION - Respiratory Exam Respiratory Exam: Decreased Breath Sounds - Cardiovascular Exam Cardiovascular Exam: +S1, +S2 - GI/Abdominal Exam GI & Abdominal Exam: Soft. absent: Tenderness Assessment and Plan - Assessment and Plan (Free Text) Plan: Assessment severe sepsis due to Enterococcus right sided pyelonephritis, clinically improvinh seizure disorder CAD HTN COPD significant smoking S/P hernia repair Plan on Zosyn - when ready for discharge, the patient can be switched to PO Ampicillin 500 mg q6 to complete 10-14 days of therapy - discussed with Dr. Pedersen
--- NOTE | 2018-04-16 18:22 | CP.PCM.DIS ---
Provider - Provider Date of Admission: 04/09/18 20:02 Attending physician: Manasa Pedersen DO Primary care physician: Amparo Hayes MD Consults: ID (Jo-Ann), Neuro (Minh), Podiatry (Jim), palliative Time Spent in preparation of Discharge (in minutes): 45 Diagnosis - Discharge Diagnosis (1) Seizure Status: Acute Priority: High (2) PNA (pneumonia) Status: Acute Priority: High (3) UTI (urinary tract infection) due to Enterococcus Status: Acute Priority: High (4) Alcohol abuse Status: Chronic Priority: High (5) Encephalomalacia with cerebral infarction Status: Chronic Priority: Low Hospital Course - Lab Results Lab Results: Micro Results 04/13/18 22:54 Blood Blood Culture - Preliminary NO GROWTH AFTER 48 HOURS 04/13/18 22:54 Blood Blood Culture - Preliminary NO GROWTH AFTER 48 HOURS 04/14/18 02:00 Urine Urine Culture - Final No Growth (<1,000 CFU/ML) 04/10/18 21:49 Urine Urine Culture - Final Enterococcus Faecalis 04/09/18 22:24 Nose MRSA Culture (Admit) - Final MRSA NOT DETECTED Most Recent Lab Values WBC 11.3 10^3/ul (4.5-11.0) H 04/16/18 06:15 RBC 5.09 10^6/uL (3.5-6.1) 04/16/18 06:15 Hgb 16.7 g/dL (14.0-18.0) 04/16/18 06:15 Hct 49.8 % (42.0-52.0) 04/16/18 06:15 MCV 97.8 fl (80.0-105.0) 04/16/18 06:15 MCH 32.8 pg (25.0-35.0) 04/16/18 06:15 MCHC 33.5 g/dl (31.0-37.0) 04/16/18 06:15 RDW 13.5 % (11.5-14.5) 04/16/18 06:15 Plt Count 244 10^3/uL (120.0-450.0) 04/16/18 06:15 MPV 9.7 fl (7.0-11.0) 04/16/18 06:15 Gran % 86.3 % (50.0-68.0) H 04/15/18 06:15 Lymph % (Auto) 10.1 % (22.0-35.0) L 04/15/18 06:15 Wilcox % (Auto) 3.5 % (1.0-6.0) 04/15/18 06:15 Eos % (Auto) 0.0 % (1.5-5.0) L 04/15/18 06:15 Baso % (Auto) 0.1 % (0.0-3.0) 04/15/18 06:15 Gran # 9.06 (1.4-6.5) H 04/15/18 06:15 Lymph # (Auto) 1.1 (1.2-3.4) L 04/15/18 06:15 Wilcox # (Auto) 0.4 (0.1-0.6) 04/15/18 06:15 Eos # (Auto) 0.0 (0.0-0.7) 04/15/18 06:15 Baso # (Auto) 0.01 K/mm3 (0.0-2.0) 04/15/18 06:15 Neutrophils % (Manual) 90 % (50.0-70.0) H 04/11/18 05:00 Lymphocytes % (Manual) 8 % (22.0-35.0) L 04/11/18 05:00 Monocytes % (Manual) 2 % (1.0-6.0) 04/11/18 05:00 Platelet Evaluation Sl.dec (NORMAL) 04/11/18 05:00 Anisocytosis (manual) Slight 04/11/18 05:00 PT 11.8 SECONDS (9.4-12.5) 04/09/18 16:39 INR 1.03 04/09/18 16:39 APTT 34.7 Seconds (25.1-36.5) 04/09/18 16:39 Sodium 140 mmol/L (132-148) 04/16/18 06:15 Potassium 4.9 mmol/L (3.6-5.0) 04/16/18 06:15 Chloride 103 mmol/L (98-107) 04/16/18 06:15 Carbon Dioxide 27 mmol/L (21-33) 04/16/18 06:15 Anion Gap 16 (10-20) 04/16/18 06:15 BUN 23 mg/dL (7-21) H 04/16/18 06:15 Creatinine 0.7 mg/dl (0.8-1.5) L 04/16/18 06:15 Est GFR ( Amer) > 60 04/16/18 06:15 Est GFR (Non-Af Amer) > 60 04/16/18 06:15 POC Glucose (mg/dL) 285 mg/dL (65-110) H 04/09/18 16:35 Random Glucose 122 mg/dL (70-110) H 04/16/18 06:15 Hemoglobin A1c 5.0 % (4.2-6.5) 04/09/18 23:55 Calcium 9.8 mg/dL (8.4-10.5) 04/16/18 06:15 Phosphorus 4.5 mg/dL (2.5-4.5) 04/16/18 06:15 Magnesium 2.3 mg/dL (1.7-2.2) H 04/16/18 06:15 Total Bilirubin 0.9 mg/dL (0.2-1.3) 04/15/18 06:15 AST 39 U/L (17-59) 04/15/18 06:15 ALT 46 U/L (7-56) 04/15/18 06:15 Alkaline Phosphatase 73 U/L (38-126) 04/15/18 06:15 Total Creatine Kinase 125 U/L (35-230) 04/09/18 16:39 Troponin I 0.04 ng/mL D 04/10/18 09:00 Total Protein 6.6 g/dL (5.8-8.3) 04/15/18 06:15 Albumin 3.7 g/dL (3.0-4.8) 04/15/18 06:15 Globulin 2.9 gm/dL 04/15/18 06:15 Albumin/Globulin Ratio 1.3 (1.1-1.8) 04/15/18 06:15 Triglycerides 74 mg/dL (35-160) 04/10/18 03:30 Cholesterol 186 mg/dL (130-200) 04/10/18 03:30 LDL Cholesterol Direct 131 mg/dL (0-129) H 04/10/18 03:30 HDL Cholesterol 44 mg/dL (29-60) 04/10/18 03:30 Prostate Specific Ag 1.8 ng/mL (0.00-2.5) 04/13/18 22:10 Procalcitonin 0.15 NG/ML (0.19-0.49) L 04/13/18 22:10 TSH 3rd Generation 0.76 mIU/mL (0.46-4.68) 04/09/18 23:55 Urine Color Yellow (YELLOW) 04/14/18 02:00 Urine Appearance Clear (CLEAR) 04/14/18 02:00 Urine pH 7.5 (4.7-8.0) 04/14/18 02:00 Ur Specific [place] 1.015 (1.005-1.035) 04/14/18 02:00 Urine Protein Negative mg/dL (<30 mg/dL) 04/14/18 02:00 Urine Glucose (UA) Negative mg/dL (NEGATIVE) 04/14/18 02:00 Urine Ketones Negative mg/dL (NEGATIVE) 04/14/18 02:00 Urine Blood Negative (NEGATIVE) 04/14/18 02:00 Urine Nitrate Negative (NEGATIVE) 04/14/18 02:00 Urine Bilirubin Negative (NEGATIVE) 04/14/18 02:00 Urine Urobilinogen 2.0 E.U./dL (<1 E.U./dL) H 04/14/18 02:00 Ur Leukocyte Esterase Negative Ricardo/uL (NEGATIVE) 04/14/18 02:00 Urine RBC 1 - 3 /hpf (0-2) 04/10/18 21:49 Urine WBC 25 - 30 /hpf (0-6) 04/10/18 21:49 Ur Epithelial Cells 1 - 3 /hpf (0-5) 04/10/18 21:49 Urine Bacteria Neg (NEG) 04/10/18 21:49 Alcohol, Quantitative 131 mg/dL (0-10) H 04/09/18 16:39 HIV 1&2 Ag/Ab, 4th Gen Nonreactive (Nonreactive) 04/14/18 07:00 - Hospital Course Hospital Course: 62 yo male with PMH alcohol abuse/withdrawal requiring intubation, frequent falls, MT, CVA, 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 At the time of the ED exam, patient was drowsy (from alcohol intoxication and s/p 2 mg IV Ativan). Most HPI obtained from prior records, staff. Patient states he had been trying to stop drinking, and then a seizure like activity occurred. States that he also tripped and fell off the sidewalk, hitting his head and left ribs. Denies cp, sob, cough, neck pain, nausea, vomiting, abdominal pain, diarrhea, leg swelling, hematuria, dysuria, frequency. In ED, patient afebrile, hemodynamically stable. Patient had a seizure activity while in CAT scan rapid response called. Given 2 mg IV Ativan. CAT abd pelvis showed right sided 2.1 cm right sided posterior perinephric hematoma. ICU consulted for further management of hematoma and alcohol withdrawal. Head CT: negative for acute findings EKG: Atrial fibrillation with premature ventricular or aberrantly conducted complexes. Septal infarct, age undetermined. T wave abnormality, consider lateral ischemia or digitalis effect. Prolonged QT. Rib X-ray: Non-displaced fracture of the distal segments of the right 9th and 10th ribs. CT chest with IV contrast: Left-sided nonacute rib fractures CT abd pelvis: posterior perinephric hematoma, 2.1 cm in thickness involving the right mid and lower pole level. There is some mild mass effect on the right kidney. No hydronephrosis. Neurology Consulted: Load with IV Depakote 1000 mg and continue on 500 mg BID. CXR: Right Lower Lobe Infiltrate. Infectious Disease consulted: Low platelets with severe sepsis with Enterococcus , complicated UTI with right pyelonephritis and subcapsular hematoma, must rule out underlying prostate disease, must also rule out aspiration pneumonia, complications of alcoholism and delirium tremens pending. Blood cultures, Urine cultures, sputum cultures, urinalysis, PSA, HIV fourth generation, CXR, procalcitonin will be ordered. Pt will be started on Zosyn. MRSA s not detected and further recommendations will be made upon availability of initial results and repeat CXR. Podiatry consulted: Afebrile, absent leukocytosis. Nails 1-5 debrided down to an appropriate length. No plan for surgical intervention at this time. Podiatry signed off. (04/15/18) ID f/u: Pt has severe sepsis and thrombocytopenia due to Enterococcus right-sided pyelonephritis, seizures, CAD, HTN, COPD. Pt is to be stay on Zosyn. (04/16/18) Neurology f/u: pt is stable on Depakote. Pt may be discharged with neurology follow up. ID- discharge on oral Amoxicillin. D/c to [facility]. Discharge Exam - Head Exam Head Exam: NORMAL INSPECTION - Eye Exam Eye Exam: EOMI Additional comments: R ptosis - ENT Exam ENT Exam: Mucous Membranes Moist - Neck Exam Neck exam: Normal Inspection - Respiratory Exam Respiratory Exam: Clear to PA & Lateral, NORMAL BREATHING PATTERN - Cardiovascular Exam Cardiovascular Exam: Irregular Rhythm (Afib), +S1, +S2 - GI/Abdominal Exam GI & Abdominal Exam: Normal Bowel Sounds, Soft, Unremarkable. absent: Tenderness - Rectal Exam Rectal Exam: Deferred - Extremities Exam Extremities exam: normal inspection - Back Exam Additional comments: lipoma - Neurological Exam Neurological exam: Alert Additional comments: oriented to person only no gross motor or sensory deficits - Psychiatric Exam Psychiatric exam: Flat Affect - Skin Skin Exam: Dry, Normal Color, Warm Discharge Plan - Discharge Medications Prescriptions: LORazepam [Ativan] 1 mg PO Q8 #15 tab Methylprednisolone [Medrol Dose Pack (21 tabs)] 4 mg PO ASDIR #21 mg - Follow Up Plan Condition: IMPROVED Disposition: REHAB FACILITY/REHAB UNIT Instructions: Seizures, Adult (DC), Alcohol Withdrawal, Alcohol Abuse and Alcoholism (DC), Effects of Alcohol on Your Health Additional Instructions: You are being discharged from [facility]. Once you are discharged from rehab, please follow-up with you primary care physician within 3-5 days. Follow-up with neurology within one week of discharge. Please return to the emergency room if symptoms recur. Please make sure of the following: Ampicillin 500 mg- one by mouth 4x/day for 10 days Medrol dose pack- take as instructed Ativan 1 mg by mouth every 8 hours only for agitation if needed Please hold all blood pressure medications if systolic blood pressure <100 and/ or heart rate <60 Referrals: Amparo Hayes MD [Primary Care Provider] - Nicolás Wilkinson MD [Staff Provider] -
== END 2018-04-16 18:30 | DRG 896 ==
LOC: ED 15:37 → ERH 20:02 → CCU 22:02 → 5RSO 04-13 00:55 → 5RNO 04-13 19:11 → 5RSO 04-13 19:38 → 5RNO 04-13 20:25
PROVIDERS: ADMIT Internal Medicine; ATTEND Hospitalist
PROC: 0HBRXZZ Excision of Toe Nail, External Approach (ICD-10-PCS; principal; 2018-04-15)
PROC: 0HBRXZZ Excision of Toe Nail, External Approach (ICD-10-PCS; 2018-04-15)
PROC: 0HBRXZZ Excision of Toe Nail, External Approach (ICD-10-PCS; 2018-04-15)
PROC: 0HBRXZZ Excision of Toe Nail, External Approach (ICD-10-PCS; 2018-04-15)
PROC: 0HBRXZZ Excision of Toe Nail, External Approach (ICD-10-PCS; 2018-04-15)
PROC: 0HBRXZZ Excision of Toe Nail, External Approach (ICD-10-PCS; 2018-04-15)
PROC: 0HBRXZZ Excision of Toe Nail, External Approach (ICD-10-PCS; 2018-04-15)
PROC: 0HBRXZZ Excision of Toe Nail, External Approach (ICD-10-PCS; 2018-04-15)
PROC: 0HBRXZZ Excision of Toe Nail, External Approach (ICD-10-PCS; 2018-04-15)
PROC: 0HBRXZZ Excision of Toe Nail, External Approach (ICD-10-PCS; 2018-04-15)
DX: F10.239 Alcohol dependence with withdrawal, unspecified (principal); J18.9 Pneumonia, unspecified organism; A41.9 Sepsis, unspecified organism; R65.20 Severe sepsis without septic shock; G40.509 Epileptic seizures related to external causes, not intractable, without status epilepticus; E87.1 Hypo-osmolality and hyponatremia; S37.011A Minor contusion of right kidney, initial encounter; S22.41XA Multiple fractures of ribs, right side, initial encounter for closed fracture; J44.1 Chronic obstructive pulmonary disease with (acute) exacerbation; N12 Tubulo-interstitial nephritis, not specified as acute or chronic; F10.27 Alcohol dependence with alcohol-induced persisting dementia; I10 Essential (primary) hypertension; F17.210 Nicotine dependence, cigarettes, uncomplicated; F12.90 Cannabis use, unspecified, uncomplicated; F14.90 Cocaine use, unspecified, uncomplicated; G93.89 Other specified disorders of brain; I48.2 Chronic atrial fibrillation; F10.229 Alcohol dependence with intoxication, unspecified; E87.6 Hypokalemia; K70.30 Alcoholic cirrhosis of liver without ascites; D69.59 Other secondary thrombocytopenia; I25.10 Atherosclerotic heart disease of native coronary artery without angina pectoris; E27.8 Other specified disorders of adrenal gland; R29.6 Repeated falls; Y90.6 Blood alcohol level of 120-199 mg/100 ml; L60.2 Onychogryphosis; L60.3 Nail dystrophy; B95.2 Enterococcus as the cause of diseases classified elsewhere; Y95 Nosocomial condition; W01.0XXA Fall on same level from slipping, tripping and stumbling without subsequent striking against object, initial encounter; Z91.19 Patient's noncompliance with other medical treatment and regimen; Z91.81 History of falling; Z87.820 Personal history of traumatic brain injury; Z86.73 Personal history of transient ischemic attack (TIA), and cerebral infarction without residual deficits; I25.2 Old myocardial infarction; Z83.3 Family history of diabetes mellitus; Z78.1 Physical restraint status